=== PATIENT | female | born 1955 | race Two or more races ===

== ENCOUNTER 2020-10-02 10:46 | Outpatient (REF) | payer MEDICARE, MEDICAID, SELFPAY ==
[2020-10-02 13:08] LABS: Creatinine Urine 119.95 mg/dL; Microalbum/Creatinine Ratio Ur 8.3 ug/mg cr
[2020-10-02 13:15] LABS: Alanine Aminotransferase 17 U/L (0-31); Albumin Level 4.5 g/dL (3.5-5.0); Alkaline Phosphatase 116 U/L (39-117); Anion Gap 14 (12-20); Aspartate Amino Transferase 19 U/L (5-31); Bilirubin Direct 0.3 mg/dL (0.0-0.5); Bilirubin Total 0.8 mg/dL (0.0-1.0); Blood Urea Nitrogen 13 mg/dL (9-16); Calcium 9.1 mg/dL (8.4-10.2); Carbon Dioxide 27 mmol/L (22-29); Chloride 104 mmol/L (96-108); Cholesterol 198 mg/dL; Estimated Glomerular Filt Rate > 60; Glucose Fasting 133 mg/dL (60-99); HDL Cholesterol 59 mg/dL; LDL Cholesterol Calculated 127 mg/dl; Potassium 4.5 mmol/l (3.3-5.1); Sodium 140 mmol/L (135-145); Total Protein 7.5 g/dL (6.5-8.0); Triglycerides 63 mg/dL
[2020-10-02 13:25] LABS: Vitamin D 25-OH Total 19.2 ng/mL (>30)
[2020-10-02 13:42] LABS: Estimated Average Glucose 140 mg/dL; Hemoglobin A1c % 6.5 %
== END 2020-10-02 10:47 | disposition home or self-care (01) ==
LOC: HO.LAB 10:46
PROVIDERS: Visit Provider Student in an Organized Health Care Education/Training Program
DX: E11.9 Type 2 diabetes mellitus without complications (principal); I10 Essential (primary) hypertension
CPT/HCPCS: 80048; 80061; 80076; 82043; 82306; 83036

== ENCOUNTER → 2020-11-18 10:37 | Outpatient (BNVA) | payer MEDICARE, MEDICAID, SELFPAY | PROVIDERS: PCP Student in an Organized Health Care Education/Training Program; Visit Provider Internal Medicine | DX: R00.2 Palpitations (principal); I49.1 Atrial premature depolarization; I49.3 Ventricular premature depolarization; G47.33 Obstructive sleep apnea (adult) (pediatric); Z79.899 Other long term (current) drug therapy | CPT/HCPCS: 93005; 99212 ==

== ENCOUNTER → 2020-12-01 08:52 | Outpatient (REF) | payer MEDICARE, MEDICAID, SELFPAY | LOC: HO.SL 08:52 | PROVIDERS: Visit Provider Internal Medicine | DX: G47.33 Obstructive sleep apnea (adult) (pediatric) (principal) | CPT/HCPCS: 95806 ==

== ENCOUNTER → 2020-12-21 12:56 | Outpatient (REF) | payer MEDICARE, MEDICAID, SELFPAY ==
--- NOTE | 2020-12-21 13:01 | HM_ITS ---
TEST PERFORMED: Cardiac event monitoring. REQUESTING PHYSICIAN: Vamshi Mcmanus MD. INDICATION: Palpitations. FINDINGS: In the 30-day event monitoring period between 12/21/2020 to 01/20/2021, the underlying rhythm was sinus. The rates ranged from 57 to 102 beats per minute. There were evidence of premature atrial contractions including some blocked PACs. Occasional premature ventricular contractions. Otherwise, no sustained betina or tachyarrhythmia noted. No evidence of any atrial fibrillation. Palpitations reported by patient correlate with PACs and PVCs. In one instance of passing out, underlying rhythm was sinus with PVC. CONCLUSION: The above study shows sinus rhythm, PACs, PVCs, but no other arrhythmias. Vamshi Mcmanus MD HS/MODL / [id number]
== END ==
LOC: HO.CARD 12:56
PROVIDERS: Visit Provider Internal Medicine
DX: R00.2 Palpitations (principal)
CPT/HCPCS: 93270

== ENCOUNTER 2020-12-23 12:40 | Outpatient (REF) | payer MEDICARE, MEDICAID, SELFPAY | END 2020-12-23 12:41 | disposition home or self-care (01) | LOC: HO.LAB 12:40 | PROVIDERS: PCP Student in an Organized Health Care Education/Training Program; Visit Provider Internal Medicine | DX: Z20.822 Contact with and (suspected) exposure to COVID-19 (principal) | CPT/HCPCS: 36415; C9803; U0003 ==

== ENCOUNTER → 2021-01-21 09:54 | Outpatient (BNVA) | payer MEDICARE, MEDICAID, SELFPAY | PROVIDERS: PCP Student in an Organized Health Care Education/Training Program; Visit Provider Internal Medicine | DX: R00.2 Palpitations (principal); I49.1 Atrial premature depolarization; I49.3 Ventricular premature depolarization; G47.33 Obstructive sleep apnea (adult) (pediatric) | CPT/HCPCS: 93005; 99212 ==

== ENCOUNTER → 2021-01-28 14:22 | Outpatient (BNVA) | payer MEDICARE, MEDICAID, SELFPAY | PROVIDERS: PCP Student in an Organized Health Care Education/Training Program; Visit Provider Surgery Vascular Surgery | DX: I83.11 Varicose veins of right lower extremity with inflammation (principal) | CPT/HCPCS: 99212 ==

== ENCOUNTER → 2021-02-02 11:23 | Outpatient (BNVA) | payer MEDICARE, MEDICAID, SELFPAY | PROVIDERS: PCP Student in an Organized Health Care Education/Training Program; Visit Provider Psychiatry & Neurology Neurology | DX: Z13.89 Encounter for screening for other disorder (principal) | CPT/HCPCS: Q3014 ==

== ENCOUNTER 2021-02-10 12:44 | Outpatient (REF) | payer MEDICARE, MEDICAID, SELFPAY ==
--- NOTE | ~2021-02-10 | US_ITS ---
EXAMINATION: US VENOUS REFLUX/INSUFFICIENCY CLINICAL INFORMATION: Varicose veins right lower extremity with inflammation. COMPARISON: Ultrasound lower extremities 01/19/2017 TECHNIQUE: Bilateral lower extremity venous insufficiency ultrasound was performed with velocity measurements. Color flow Doppler imaging was performed. FINDINGS: Respiratory variation, normal compression and augmented flow are noted in the bilateral common femoral, mid femoral, and popliteal veins. There is no evidence of deep venous reflux or deep venous thrombosis., RIGHT SIDE: GREATER SAPHENOUS VEIN: The right saphenofemoral junction measures 0.6cm. The reflux time is 0 ms. Proximal thigh measures 0.8cm. Reflux time is 0ms. Mid thigh measures 0.2cm. Reflux time is 0ms. The vessel is not visualized above or at the level of the knee. Below the knee measures 0.2cm. Reflux time is 0ms. Mid calf measures 0.3cm. Reflux time is 1600ms. At the level of the ankle it measures0.2cm. Reflux time is 2468ms. SMALL SAPHENOUS VEIN: The upper right small saphenous vein measures 0.2 cm. Reflux time is 0ms. The lower small saphenous vein measures 0.2cm. Reflux time is 0ms. At the proximal calf there is a small varicosity which measures 2 mm in diameter and does not demonstrate significant reflux. At the proximal thigh there is a varicosity which measures 9 mm in diameter and does not demonstrate significant reflux. LEFT SIDE: GREATER SAPHENOUS VEIN: The left saphenofemoral junction measures 0.5cm. The reflux time is 0 ms. Proximal thigh measures 0.5cm. Reflux time is 0ms. Mid thigh measures 0.3cm. Reflux time is 0ms. Above-knee measures 0.2cm. Reflux time is 0ms. At the knee measures 0.2cm. Reflux time is 0ms. Below the knee measures 0.2cm. Reflux time is 0ms. Mid calf measures 0.2cm. Reflux time is 0ms. At the level of the ankle it measures0.2cm. Reflux time is 0ms. SMALL SAPHENOUS VEIN: The upper left small saphenous vein measures 0.3 cm. Reflux time is 0ms. The lower small saphenous vein measures 0.3cm. Reflux time is 0ms. There is a lateral accessory saphenous vein which measures 3 mm in diameter and does not demonstrate significant reflux. US/US venous duplex LE BI IMPRESSION: No evidence of deep venous thrombosis or deep venous reflux. On the right there is a proximal thigh varicosity which measures 9 mm in diameter, though does not demonstrate significant reflux. Within the right great saphenous vein there is reflux at the level of the midcalf and ankle measuring up to 2468 ms. No evidence of left lower extremity venous reflux or varicosities
== END 2021-02-10 12:45 | disposition home or self-care (01) ==
LOC: HO.US 12:44
PROVIDERS: Visit Provider Surgery Vascular Surgery
DX: I83.11 Varicose veins of right lower extremity with inflammation (principal); I83.893 Varicose veins of bilateral lower extremities with other complications
CPT/HCPCS: 93970

== ENCOUNTER → 2021-02-25 08:41 | Outpatient (BNVA) | payer MEDICARE, MEDICAID, SELFPAY | PROVIDERS: PCP Student in an Organized Health Care Education/Training Program; Visit Provider Surgery Vascular Surgery | DX: Z13.89 Encounter for screening for other disorder (principal) | CPT/HCPCS: 99212 ==

== ENCOUNTER → 2021-03-05 09:29 | Outpatient (BNVA) | payer MEDICARE, MEDICAID, SELFPAY | PROVIDERS: PCP Student in an Organized Health Care Education/Training Program; Visit Provider Surgery Vascular Surgery | DX: I83.11 Varicose veins of right lower extremity with inflammation (principal) | CPT/HCPCS: 37766 ==

== ENCOUNTER → 2021-03-18 09:53 | Outpatient (BNVA) | payer MEDICARE, MEDICAID, SELFPAY | PROVIDERS: PCP Student in an Organized Health Care Education/Training Program; Visit Provider Surgery Vascular Surgery | DX: R22.41 Localized swelling, mass and lump, right lower limb (principal); I80.231 Phlebitis and thrombophlebitis of right tibial vein; I49.1 Atrial premature depolarization; Z88.0 Allergy status to penicillin; Z88.8 Allergy status to other drugs, medicaments and biological substances | CPT/HCPCS: 99212 ==

== ENCOUNTER → 2021-04-15 08:45 | Outpatient (BNVA) | payer MEDICARE, MEDICAID, SELFPAY | PROVIDERS: PCP Student in an Organized Health Care Education/Training Program; Referring Provider Student in an Organized Health Care Education/Training Program; Visit Provider Internal Medicine | DX: R00.2 Palpitations (principal); I49.1 Atrial premature depolarization; I49.3 Ventricular premature depolarization; G47.33 Obstructive sleep apnea (adult) (pediatric) | CPT/HCPCS: 99212 ==

== ENCOUNTER 2021-06-04 08:20 | Outpatient (REF) | payer MEDICARE, MEDICAID, SELFPAY ==
--- NOTE | ~2021-06-04 | MM_ITS ---
EXAMINATION: MM SCREENING DIGITAL BREAST TOMOSYNTHESIS, BILATERAL CLINICAL INFORMATION: Screening. Asymptomatic. The lifetime risk of breast cancer based on the Tyrer-Cuzick Model is 4%. COMPARISON: Mammography: 05/29/2020, 03/21/2019, 03/15/2018 TECHNIQUE: Digital breast tomosynthesis is performed in both the craniocaudal and mediolateral oblique views along with computer-aided detection (CAD). Synthesized 2D images are generated from the tomosynthesis. FINDINGS: There are scattered areas of fibroglandular density (ACR BI-RADS breast composition Category b). There are no significant masses, abnormal calcifications, or other abnormalities. Parenchymal pattern is similar to prior studies. Small intramammary node again noted mid 6:00 left breast similar to prior exams. The axilla and skin contours are unremarkable. MM/MM tomosynthesis screening BI IMPRESSION: No mammographic evidence of malignancy. ASSESSMENT: BI-RADS 2: Benign RECOMMENDATION: Routine annual mammography screening. This patient's information was entered into a reminder system with a target due date for their next mammogram.
== END 2021-06-04 08:21 | disposition home or self-care (01) ==
LOC: HO.MAMMO 08:20
PROVIDERS: PCP Nurse Practitioner Family; Visit Provider Nurse Practitioner Family
DX: Z12.31 Encounter for screening mammogram for malignant neoplasm of breast (principal)
CPT/HCPCS: 77063; 77067

== ENCOUNTER → 2021-09-14 12:33 | Outpatient (BNVA) | payer MEDICARE, MEDICAID, SELFPAY | PROVIDERS: PCP Nurse Practitioner Family; Referring Provider Nurse Practitioner Family; Visit Provider Nurse Practitioner Family | DX: I25.10 Atherosclerotic heart disease of native coronary artery without angina pectoris (principal); I49.3 Ventricular premature depolarization; I49.1 Atrial premature depolarization; R00.2 Palpitations | CPT/HCPCS: 93005; 99212 ==

== ENCOUNTER → 2021-09-20 11:06 | Outpatient (REF) | payer MEDICARE, MEDICAID, SELFPAY ==
--- NOTE | 2021-09-20 11:09 | HM_ITS ---
Total monitoring time 3 days. Underlying rhythm is sinus. Minimum heart rate 38/Min. Maximum 111/minute. Average 59/Min. No atrial fibrillation or flutter. No other blocks or pauses. 134 supraventricular episodes, longest 23 beats. Overall PAC burden 1.76%. Rare PVCs, 2 morphologies, 2 couplets, 0.22% burden. Patient symptoms including palpitations, skipping, shortness of breath correlate with ectopy above. MTDD
== END ==
LOC: HO.CARD 11:06
PROVIDERS: Visit Provider Nurse Practitioner Family
DX: R00.2 Palpitations (principal)
CPT/HCPCS: 93242

== ENCOUNTER → 2021-11-03 11:50 | Outpatient (BNVA) | payer MEDICARE, MEDICAID, SELFPAY | PROVIDERS: Visit Provider Nurse Practitioner Family | DX: K21.9 Gastro-esophageal reflux disease without esophagitis (principal); K58.1 Irritable bowel syndrome with constipation; K59.04 Chronic idiopathic constipation | CPT/HCPCS: 99212 ==

== ENCOUNTER 2021-11-05 14:39 | Outpatient (REF) | payer MEDICARE, MEDICAID, SELFPAY ==
[2021-11-05 15:36] LABS: Alanine Aminotransferase 16 U/L (0-31); Albumin Level 4.1 g/dL (3.5-5.0); Alkaline Phosphatase 95 U/L (39-117); Anion Gap 10 (12-20); Aspartate Amino Transferase 19 U/L (5-31); Bilirubin Total 1.3 mg/dL (0.0-1.0); Blood Urea Nitrogen 12 mg/dL (9-16); Calcium 9.8 mg/dL (8.4-10.2); Carbon Dioxide 28 mmol/L (22-29); Chloride 105 mmol/L (96-108); Estimated Glomerular Filt Rate > 60; Glucose Random 132 mg/dL (60-115); Lipase 42 U/L (8-78); Potassium 3.9 mmol/L (3.3-5.1); Sodium 139 mmol/L (135-145); Total Protein 7.1 g/dL (6.5-8.0)
[2021-11-05 16:10] LABS: Folate 14.3 ng/mL (> or = 4.0); Vitamin B12 308 pg/mL (200-900)
[2021-11-09 13:21] LABS: Vitamin D 25-OH, D2 21 ng/mL; Vitamin D 25-OH, D3 7 ng/mL; Vitamin D 25-OH, Total 28 ng/mL (30-100)
[2021-11-11 09:11] LABS: Transglutaminase Ab IgG 1.2 U/mL; Transglutaminase IgA <1.0 U/mL
== END 2021-11-05 14:40 | disposition home or self-care (01) ==
LOC: HO.LAB 14:39
PROVIDERS: Visit Provider Nurse Practitioner Family
DX: Z12.11 Encounter for screening for malignant neoplasm of colon (principal); R10.11 Right upper quadrant pain; E55.9 Vitamin D deficiency, unspecified; R19.7 Diarrhea, unspecified; R14.0 Abdominal distension (gaseous); K21.9 Gastro-esophageal reflux disease without esophagitis
CPT/HCPCS: 36415; 80053; 82306; 82607; 82746; 83516; 83690; 84443; 87338

== ENCOUNTER 2021-12-03 06:09 | Day surgery (SDC) | payer MEDICARE, MEDICAID, SELFPAY ==
[2021-11-23 15:51] VITALS: BMI 35.9
--- NOTE | 2021-12-02 15:25 | P.CONAN_ITS ---
Documented by User: Arely Ordonez NP 12/02/21 15:28 HPI - Anesthesia Eval Consult details Narrative: 66yo F for Upper Endoscopy PMFSH Active Problems Active Problems: All Active Problems (Updated 11/23/21 @ 15:50 by Rosemarie Benjamin RN) INDERJIT (obstructive sleep apnea) (Acute) PVC (premature ventricular contraction) (Acute) Heart palpitations (Acute) Varicose veins of right lower extremity with inflammation (Acute) Snoring (Acute) Witnessed apneic spells (Acute) Nonobstructive atherosclerosis of coronary artery (Acute) PAC (premature atrial contraction) (Acute) Past Medical History Medical History Arthritis Depression Diabetes GERD (gastroesophageal reflux disease) Hyperlipidemia Hypertension Nonobstructive atherosclerosis of coronary artery INDERJIT (obstructive sleep apnea) PAC (premature atrial contraction) Family History Family History Father No problems noted. Mother Cervical cancer Surgical History Surgical History History of exploratory laparotomy History of hysterectomy History of tubal ligation Status post phlebectomy Social History Social History Patient Tobacco Use Status: Never used Tobacco Use of substances other than those prescribed or required for medical reasons: No Are you DNR?: No Advance Directives: No Advance Directives Information Provided: No Advance Directives on File: No Recently lost weight without trying: No Nutrition Risks: No Nutritional Risk Patient : No Meds Allergies Allergy/AdvReac Type Severity Reaction Status Date / Time enalapril [ENALAPRIL] Allergy Unknown COUGH Verified 12/03/21 06:37 Penicillins [PENICILLINS] Allergy Unknown RASH Verified 12/03/21 06:37 pravastatin [PRAVASTATIN] Allergy Unknown RASH Verified 12/03/21 06:37 glipizide AdvReac Unknown hypoglycemi Verified 12/03/21 06:37 a metformin AdvReac Unknown abdominal Verified 12/03/21 06:37 pain simvastatin AdvReac Unknown stomach Verified 12/03/21 06:37 upset Home Medications Medication Instructions Recorded Confirmed Last Taken Type atorvastatin 80 mg tablet 80 mg PO DAILY tab 11/18/20 11/23/21 Unknown History zolpidem 10 mg tablet 10 mg PO BEDTIME tab 11/18/20 11/23/21 Unknown History bupropion HCl 150 mg 24 hr tablet, 150 mg PO DAILY tab 01/21/21 11/23/21 Unknown History extended release duloxetine 30 mg capsule,delayed 30 mg PO DAILY cap 01/21/21 11/23/21 Unknown History release ipratropium bromide 21 mcg (0.03 2 spray INTRANASAL BID PRN ml 01/21/21 11/23/21 Unknown History %) nasal spray bupropion HCl 300 mg 24 hr tablet, 300 mg PO DAILY tab 09/14/21 11/23/21 Unknown History extended release buspirone 15 mg tablet 15 mg PO DAILY 09/14/21 11/23/21 Unknown History lorazepam 0.5 mg tablet 0.5 mg PO DAILY PRN 09/14/21 11/23/21 Unknown History quetiapine 50 mg tablet 50 mg PO DAILY tab 09/14/21 11/23/21 Unknown History sitagliptin 100 mg tablet (Januvia) 100 mg PO DAILY 09/14/21 11/23/21 Unknown History Exam Exam Date and Time: December 02, 2021 1525 Height,Weight and Vital Signs: Height 5 ft 4 in Weight 94.801 kg Pertinent Lab Results Pertinent Lab Results: Laboratory Tests 11/05/21 14:58 Sodium 139 Potassium 3.9 Chloride 105 Carbon Dioxide 28 BUN 12 Creatinine 0.81 Narrative Narrative: 3 day holter 08/2021 Total monitoring time 3 days.? Underlying rhythm is sinus.? Minimum heart rate 38/Min.? Maximum 111/minute.? Average 59/Min.? No atrial fibrillation or flut ter.? No other blocks or pauses. 134 supraventricular episodes, longest 23 beats.? Overall PAC burden 1.76%.? Rare PVCs, 2 morphologies, 2 couplets, 0.22% burden.? Patient symptoms including palpitations, skipping, shortness of breath correlate with ectopy above. EKG 08/2021 normal sinus rhythm, low-voltage QRS, no acute ST or T-wave abnormalities, normal ID, QRS and QTC intervals, rate 61 CTA of coronary 01/03/19 evidence of minimal calcific plaque in the proximal to mid LAD and mild narrowing at the origin of a non dominant 1st diagonal branch, EF 69% Nuclear stress test done on 11/01/2018 showed basal lateral ischemia, EF 70%.? A CTA of the coronary arteries was done 12/2018 showing no significant stenosis. No report of anginal sounding symptoms.? Recommend continuation of aspirin and statin Assessment and Plan Assessment Anesthesia Assessment: Chart Reviewed Documented by User: Celso Tristan MD 12/03/21 07:09 [facility] Past Medical History Medical History Arthritis Depression Diabetes GERD (gastroesophageal reflux disease) Hyperlipidemia Hypertension Nonobstructive atherosclerosis of coronary artery INDERJIT (obstructive sleep apnea) PAC (premature atrial contraction) Family History Family History Father No problems noted. Mother Cervical cancer Family history of problems with anesthesia: No Surgical History Surgical History History of exploratory laparotomy History of hysterectomy History of tubal ligation Status post phlebectomy History of Problems with Anesthesia: No Social History Social History Patient Tobacco Use Status: Never used Tobacco Use of substances other than those prescribed or required for medical reasons: No Are you DNR?: No Advance Directives: No Advance Directives Information Provided: No Advance Directives on File: No Recently lost weight without trying: No Nutrition Risks: No Nutritional Risk Patient : No Meds Allergies Allergy/AdvReac Type Severity Reaction Status Date / Time enalapril [ENALAPRIL] Allergy Unknown COUGH Verified 12/03/21 06:37 Penicillins [PENICILLINS] Allergy Unknown RASH Verified 12/03/21 06:37 pravastatin [PRAVASTATIN] Allergy Unknown RASH Verified 12/03/21 06:37 glipizide AdvReac Unknown hypoglycemi Verified 12/03/21 06:37 a metformin AdvReac Unknown abdominal Verified 12/03/21 06:37 pain simvastatin AdvReac Unknown stomach Verified 12/03/21 06:37 upset Home Medications Medication Instructions Recorded Confirmed Last Taken Type atorvastatin 80 mg tablet 80 mg PO DAILY tab 11/18/20 11/23/21 Unknown History zolpidem 10 mg tablet 10 mg PO BEDTIME tab 11/18/20 11/23/21 Unknown History bupropion HCl 150 mg 24 hr tablet, 150 mg PO DAILY tab 01/21/21 11/23/21 Unknown History extended release duloxetine 30 mg capsule,delayed 30 mg PO DAILY cap 01/21/21 11/23/21 Unknown History release ipratropium bromide 21 mcg (0.03 2 spray INTRANASAL BID PRN ml 01/21/21 11/23/21 Unknown History %) nasal spray bupropion HCl 300 mg 24 hr tablet, 300 mg PO DAILY tab 09/14/21 11/23/21 Unknown History extended release buspirone 15 mg tablet 15 mg PO DAILY 09/14/21 11/23/21 Unknown History lorazepam 0.5 mg tablet 0.5 mg PO DAILY PRN 09/14/21 11/23/21 Unknown History quetiapine 50 mg tablet 50 mg PO DAILY tab 09/14/21 11/23/21 Unknown History sitagliptin 100 mg tablet (Januvia) 100 mg PO DAILY 09/14/21 11/23/21 Unknown H istory Exam Airway Mallampati Class: III Neck ROM: Full Loose/Missing/Broken Teeth: No Heart: [id number] Lungs: cta b/l Assessment and Plan Assessment Anesthesia Assessment: Anesthesia Plan Discussed Final Anesthetic Review Family History of Problems with Anesthesia: No History of Problems with Anesthesia: No NPO: Yes ASA Class: III Final Preanesthetic Review: No Changes in Pt Med Stat, Meds/Allgs Chart Reviewed, Consent Obtained/Reviewed and Anes Risks/Benef Reviewed Patient Risk: Intermediate Procedure Risk: Low Assessment/Block/Sedation in SS: Assess/Block/Sedation-SS Anesthetic Plan Anesthetic Plan: MAC: and Agree w/ Assess. and Plan Disposition: Standard PACU
[2021-12-03 06:46] VITALS: BP 110/66; PULSE 72; RESP 16; TEMP -16.6; TEMP 2; O2SAT 97
[2021-12-03] MEDS: Lactated Ringers 1,000 ML 100 ML IVCONT (06:58)
[2021-12-03 07:11] LABS: Glucose, Whole Blood 126 mg/dL (60-115)
--- NOTE | 2021-12-03 07:39 | MHC.SHP ---
Pre-Procedural Eval Section A Date of Service: 12/03/21 The patient is an INPATIENT: No Changes since office visit: Yes Patient answered all questions; No Cold of Flu in the past 2 weeks, No New Medical Problems and No Changes in Medication The History & Physical has been completed within 30 days and I have reviewed it.: Yes Section B Chief Complaint: GERD Allergies: Allergies Allergy/AdvReac Type Severity Reaction Status Date / Time enalapril [ENALAPRIL] Allergy Unknown COUGH Verified 12/03/21 06:37 Penicillins [PENICILLINS] Allergy Unknown RASH Verified 12/03/21 06:37 pravastatin [PRAVASTATIN] Allergy Unknown RASH Verified 12/03/21 06:37 glipizide AdvReac Unknown hypoglycemi Verified 12/03/21 06:37 a metformin AdvReac Unknown abdominal Verified 12/03/21 06:37 pain simvastatin AdvReac Unknown stomach Verified 12/03/21 06:37 upset Plan I have reviewed the history and physical and performed a pertinent physical examination on my patient. No changes have occurred unless specified.
--- NOTE | 2021-12-03 07:40 | P.BOP_ITS ---
Brief Operative Note Date of Service: 12/03/21 Pre-op diagnosis: GERD, upper abdominal pain and bloating Post-op diagnosis: other (GERD, Gastritis) Procedure: FLEXIBLE TRANSORAL UPPER GASTROINTESTINAL ENDOSCOPY WITH BIOPSIES Consent: Indications for the procedure and potential complications of bleeding, perforation, reaction to medications and missed diagnosis were discussed with the patient and informed consent was obtained. Instrument: Olympus GIF H 190 mid size upper endoscope Monitoring: Vital signs and clinical assessment, continuous EKG monitoring, Pulse oximetry, Carbon Dioxide monitoring and blood pressure monitoring were done throughout the procedure. Procedure: The patient was placed in the left lateral decubitis position and pre-procedure medications were administered and a bite block was placed. The endoscope was inserted into the mouth and advanced under direct vision to the third part of duodenum. A careful inspection was made as the upper endoscope was withdrawn including a retroflexed examination of the proximal stomach; Findings and interventions are described below. Findings: Larynx: Normal Esophagus: GE junction at 38 cms. No esophagitis or Irizarry's. Stomach: Mild gastric erythema. Biopsies were obtained. Grade 2 flap valve on retroflexed examination of the cardia. Duodenum: Normal bulb and descending duodenum, biopsies obtained from 3rd part of duodenum to check for celiac sprue. Intervention: Biopsies as noted above Impression and Post Procedure Diagnosis: Endoscopy Findings: STOMACH: Mild gastric erythema. Biopsies were obtained. DUODENUM: Normal - biopsied to check for celiac sprue Plan: Await pathology results Patient has an appointment on 12/17/21 in the GI Clinic with Lianne Mccray FNP-BC . Above findings were reviewed with the patient and GERD and Gastritis handouts were given in the discharge area Surgeon: Carlos A Rose MD Anesthesia: MAC (Marli Nielsen, CRISTINE) Was an Cold Mill Operator used for this Procedure?: Yes Cold Mill Operator: Claritza Pat Estimated blood loss (mL): 0 Pathology: other (A- Small bowel BX r/o celiac disease B- gastric antrum BX r/o H.Pylori) Condition: stable Disposition: PACU
--- NOTE | 2021-12-03 08:19 | W.PM.OPN ---
Operative Note Operative Note Date of Service: 12/03/21 Narrative: Pre-op diagnosis:?GERD, upper abdominal pain and bloating Post-op diagnosis:?other (GERD, Gastritis) Procedure:? FLEXIBLE TRANSORAL UPPER GASTROINTESTINAL ENDOSCOPY WITH BIOPSIES Consent:?Indications for the procedure and potential complications of bleeding, perforation, reaction to medications and missed diagnosis were discussed with the patient and informed consent was obtained. Instrument:?Olympus GIF H 190 mid size upper endoscope Monitoring: Vital signs and clinical assessment, continuous EKG monitoring, Pulse oximetry, Carbon Dioxide monitoring and blood pressure monitoring were done throughout the procedure. Procedure:?The patient was placed in the left lateral decubitis position and pre-procedure medications were administered and a bite block was placed. The endoscope was inserted into the mouth and advanced under direct vision to the third part of duodenum. A careful inspection was made as the upper endoscope was withdrawn including a retroflexed examination of the proximal stomach; Findings and interventions are described below. Findings: Larynx:? Normal Esophagus: GE junction at 38 cms. No esophagitis or Irizarry's. Stomach: Mild gastric erythema. Biopsies were obtained. Grade 2 flap valve on retroflexed examination of the cardia. Duodenum: Normal bulb and descending duodenum, biopsies obtained from 3rd part of duodenum to check for celiac sprue. Intervention: Biopsies as noted above Impression and Post Procedure Diagnosis: Endoscopy Findings: STOMACH: Mild gastric erythema. Biopsies were obtained. DUODENUM: Normal - biopsied to check for celiac sprue Plan: Await pathology results Patient has an appointment on 12/17/21 in the GI Clinic with ? Lianne Mccray FNP-BC . Above findings were reviewed with the patient and GERD and Gastritis handouts were given in the discharge area Surgeon:?Carlos A Roes MD Anesthesia:?MAC (Marli Nielsen, CRISTINE) Was an Straw Hat Brim Cutter Operator used for this Procedure?:?Yes Straw Hat Brim Cutter Operator:?Claritza Pat Estimated blood loss (mL):?0 Pathology:?other (A- Small bowel BX r/o celiac disease? B- gastric antrum BX r/o H.Pylori) Condition:?stable Disposition:?PACU
[2021-12-03 08:23] VITALS: BP 113/51; PULSE 65; RESP 20; TEMP 36.4; O2SAT 96
[2021-12-03 08:38] VITALS: BP 116/67; PULSE 59; RESP 20; TEMP 36.2; O2SAT 96
[2021-12-03 08:51] VITALS: BP 125/61; RESP 18; O2SAT 96
== END 2021-12-03 09:24 | disposition home or self-care (01) ==
PROVIDERS: Visit Provider Internal Medicine Gastroenterology
PROC: 0DJ08ZZ Inspection of Upper Intestinal Tract, Via Natural or Artificial Opening Endoscopic (ICD-10-PCS; CPT 43235; principal; 2021-12-03 07:30)
DX: K21.9 Gastro-esophageal reflux disease without esophagitis (principal); K29.50 Unspecified chronic gastritis without bleeding; K58.1 Irritable bowel syndrome with constipation; G47.33 Obstructive sleep apnea (adult) (pediatric); I49.1 Atrial premature depolarization; E55.9 Vitamin D deficiency, unspecified; E11.9 Type 2 diabetes mellitus without complications; Z79.84 Long term (current) use of oral hypoglycemic drugs; Z79.899 Other long term (current) drug therapy; Z88.0 Allergy status to penicillin; Z88.8 Allergy status to other drugs, medicaments and biological substances
CPT/HCPCS: 43239; 82947; 88305; 88342

== ENCOUNTER → 2021-12-20 09:11 | Outpatient (BNVA) | payer MEDICARE, MEDICAID, SELFPAY | PROVIDERS: Visit Provider Nurse Practitioner Family | DX: K21.9 Gastro-esophageal reflux disease without esophagitis (principal); K58.1 Irritable bowel syndrome with constipation; K59.04 Chronic idiopathic constipation; A04.8 Other specified bacterial intestinal infections | CPT/HCPCS: 99212 ==

== ENCOUNTER → 2022-03-21 08:14 | Outpatient (BNVA) | payer MEDICARE, MEDICAID, SELFPAY | PROVIDERS: Visit Provider Nurse Practitioner Family | DX: K21.9 Gastro-esophageal reflux disease without esophagitis (principal); K59.04 Chronic idiopathic constipation; K58.1 Irritable bowel syndrome with constipation; R20.8 Other disturbances of skin sensation | CPT/HCPCS: 99212 ==

== ENCOUNTER → 2022-03-31 08:44 | Outpatient (REF) | payer MEDICARE, MEDICAID, SELFPAY ==
--- NOTE | 2022-03-31 10:16 | ECG_ITS ---
Hook-up date: 2022-03-31 09:35:00 Duration: 28:37:00 Test Indications: PVC'S Medications: 91630 QRS complexes 682 Ventricular ectopics which represent <1 % of total QRS comp. 213 Supraventricular ectopics which represent <1 % of total QRS comp. * Paced QRS complexs which represent % of total QRS comp. VENTRICULAR ECTOPY 672 Isolated 48 Bigeminal Cycles 5 Couplets 0 Runs 0 Beats in Runs * Beats LONGEST at * BPM at :: -- * Beats FASTEST at * BPM at :: -- SUPRAVENTRICULAR ECTOPY 187 Isolated 1 Couplets 4 Runs 24 Beats in Runs 14 Beats LONGEST at 136 BPM at 21:53:36 2022-03-31 14 Beats FASTEST at 136 BPM at 21:53:36 2022-03-31 HEART RATES 47 MIN at 12:55:00 2022-03-31 61 AVG 117 MAX at 16:43:45 2022-03-31 LONGEST RR 1.8320 secs at 05:26:11 2022-04-01 S-T LEVELS Channel 1 - 128 mm at 09:35:00 2022-03-31 - 128 mm at 09:35:00 2022-03-31 Channel 2 - 128 mm at 09:35:00 2022-03-31 - 128 mm at 09:35:00 2022-03-31 Channel 3 - 128 mm at 02:85:41 -- - 128 mm at 02:85:41 Underlying rhythm is sinus; Average rate 61/min; range 47-117/min; About 49% of the time, rate <60/min; Rare supraventricular ectopy with very brief runs; some blocked PACs; Rare ventricular ectopy with minimal burden; few couplets, no runs; Patient did not return diary Referred By: Jesús Erazo Overread By: JESÚS ERAZO
== END ==
LOC: HO.CARD 08:44
PROVIDERS: Visit Provider Internal Medicine
DX: I49.3 Ventricular premature depolarization (principal)
CPT/HCPCS: 93226

== ENCOUNTER → 2022-04-13 07:12 | Outpatient (REF) | payer MEDICARE, MEDICAID, SELFPAY ==
--- NOTE | 2022-04-13 07:14 | CA_ITS ---
Transthoracic Echocardiogram Patient (Last, First, Middle): Sis Luo, Gender: Female Date of : 1955 Age: 67 Procedure Date: 04/13/2022 Procedure Type: Transthoracic Echocardiogram Location: OP Height: 162.56 cm Weight: 95.26 kg BSA: 2.00 m2 Heart Rate: bpm BP: 124 / 62 mmHg Cell Operator: SB Referring MD: Vamshi Mcmanus MD Symptoms: I49.3 - Ventricular premature depolarization Study Quality: Fair ECG Rhythm: Sinus Conclusions: - The left ventricular systolic function is low normal. The calculated ejection fraction is 53% by biplane method. - Mild aneurysmal appearance of interatrial septum. - There is mild tricuspid valve regurgitation. - Mild pulmonary hypertension is present. Findings Left Ventricle Normal left ventricular cavity size. There is normal left ventricular wall thickness. The left ventricular systolic function is low normal. The calculated ejection fraction is 53% by biplane method. There is no evidence of regional wall motion abnormalities. Diastolic function is normal for age. There is mild septal asymmetric hypertrophy. Right Ventricle Normal right ventricular cavity size and systolic function. Atria The left atrium is mildly dilated. Interatrial shunt cannot be excluded. The right atrium is normal in size. Mild aneurysmal appearance of interatrial septum. Aortic Valve There is a normal trileaflet aortic valve. There is no aortic valve stenosis. There is no aortic valve regurgitation. Mitral Valve The mitral valve appears normal. There is trace mitral valve regurgitation. There is no mitral valve stenosis. Pulmonic Valve The pulmonic valve was not well visualized. There is mild pulmonic valve regurgitation. Tricuspid Valve Normal tricuspid valve structure. There is mild tricuspid valve regurgitation. The right ventricular systolic pressure is 40 mmHg. Mild pulmonary hypertension is present. Great Vessels The asc aorta is normal in size. Venous The inferior vena cava is normal in size and collapses greater than 50% with inspiration. Pericardium/Pleural There is no evidence of pericardial effusion. Prior Study Comparison Changes noted compared to prior study dated: 11/01/2018. See comments on atrial septum. Measurements 2D Linear Measurements IVSd: 1.11 0.6-0.9/0.6-1.0 cm LVIDd: 5.49 3.9-5.3/4.2-5.9 cm LVIDd Index: 2.75 2.4-3.2/2.2-3.1 cm/m2 LVIDs: 3.98 2.0-3.6 cm LVPWd: 0.64 0.7-1.1 cm LA Diam: 4.90 2.7-3.8/3.0-4.0 cm LAIDs Index: 2.45 1.5-2.3 cm/m2 LV Mass: 222.27 67-162/88-224 g LV Mass Index: 111.13 43-95/49-115 g/m2 LVOT Diam: 2.20 3.0+(-)1.3 cm 2D Systolic Function EF 4C: 54.10 >55% EF 2C: 51.90 >55% EF BiP: 52.80 >55% Mitral Valve MV Pk E: 0.94 MV PK A: 0.84 MV Decel Time: 137.00 E/A: 1.10 E'Lateral: 10.90 E'Medial: 8.59 E/E' Med: 11.00 E/E' Lat: 8.70 PHT: 40.00 MVA PHT: 5.50 Decel [place]: 6.86 Aortic Valve AoV Pk Brant: 1.06 AoV Mn Brant: 0.76 AoV VTI: 0.24 AoV Pk Grad: 4.00 Aov Mn Grad: 3.00 JOSE MARIA Cont.VTI: 2.82 LVOT LVOT Pk Brant: 0.72 LVOT Mn Brant: 0.50 LVOT VTI: 0.18 LVOT Pk Grad: 2.00 LVOT Mn Grad: 1.00 LVOT Diam: 2.20 LVOT Area: 3.80 Diastolic Function MV Pk E: 0.94 MV Pk A: 0.84 E/A: 1.10 E'Medial: 8.59 E/E' Med: 11.00 E' Laterial: 10.90 E/E' Lat: 8.70 Right Ventricle TAPSE (mm): 19.30 TVS' Brant: 11.50 Tricuspid Valve TR Pk Brant: 3.03 TR Pk Grad: 37.00 RA Press: 3.00 RVSP: 40.00 Great Vessels Aorta Sinus of Valsalva: 2.31 2.0-3.[address] [place]: 2.25 1.7-3.4 cm Ao Asc: 2.60 2.1-3.4 cm Pulmonary Veins Pulm Vein S/D 1.60 Pulmonary Valve PV Pk Brant: 0.84 Peak PV Grad: 3.00 Updated in Other Vendor System with Status of Final Vamshi Mcmanus MD electronically signed on 04/15/2022 12:57:38 PM with status of Final
== END ==
LOC: HO.CARD 07:12
PROVIDERS: Visit Provider Internal Medicine
DX: I49.1 Atrial premature depolarization (principal); I49.3 Ventricular premature depolarization
CPT/HCPCS: 93306

== ENCOUNTER → 2022-04-21 08:40 | Outpatient (BNVA) | payer MEDICARE, MEDICAID, SELFPAY | PROVIDERS: Visit Provider Internal Medicine | DX: I49.1 Atrial premature depolarization (principal); I49.3 Ventricular premature depolarization; I25.10 Atherosclerotic heart disease of native coronary artery without angina pectoris; G47.33 Obstructive sleep apnea (adult) (pediatric) | CPT/HCPCS: 93005; 99212 ==

== ENCOUNTER → 2022-05-02 08:19 | Outpatient (BNVA) | payer MEDICARE, MEDICAID, SELFPAY | PROVIDERS: Visit Provider Nurse Practitioner Family | DX: K59.04 Chronic idiopathic constipation (principal); K21.9 Gastro-esophageal reflux disease without esophagitis; K58.1 Irritable bowel syndrome with constipation | CPT/HCPCS: 99212 ==

== ENCOUNTER 2022-06-06 10:39 | Outpatient (REF) | payer MEDICARE, MEDICAID, SELFPAY ==
--- NOTE | ~2022-06-06 | MM_ITS ---
EXAMINATION: MM SCREENING DIGITAL BREAST TOMOSYNTHESIS, BILATERAL CLINICAL INFORMATION: Screening. Asymptomatic. The lifetime risk of breast cancer based on the Tyrer-Cuzick Model is 4%. COMPARISON: Mammography: 06/04/2021, 05/29/2020, 03/21/2019 TECHNIQUE: Digital breast tomosynthesis is performed in both the craniocaudal and mediolateral oblique views along with computer-aided detection (CAD). Synthesized 2D images are generated from the tomosynthesis. FINDINGS: There are scattered areas of fibroglandular density (ACR BI-RADS breast composition Category b). There are no significant masses, abnormal calcifications, or other abnormalities. The axilla and skin contours are unremarkable. The parenchymal pattern is similar to prior exams. No significant changes. MM/MM tomosynthesis screening BI IMPRESSION: No mammographic evidence of malignancy. ASSESSMENT: BI-RADS 1: Negative RECOMMENDATION: Routine annual mammography screening. This patient's information was entered into a reminder system with a target due date for their next mammogram.
== END 2022-06-06 10:40 | disposition home or self-care (01) ==
LOC: HO.MAMMO 10:39
PROVIDERS: Visit Provider Nurse Practitioner Family
DX: Z12.31 Encounter for screening mammogram for malignant neoplasm of breast (principal)
CPT/HCPCS: 77063; 77067

== ENCOUNTER → 2022-11-01 07:54 | Outpatient (BNVA) | payer MEDICARE, MEDICAID, SELFPAY | PROVIDERS: Visit Provider Nurse Practitioner Family | DX: K21.9 Gastro-esophageal reflux disease without esophagitis (principal); K59.04 Chronic idiopathic constipation; K58.1 Irritable bowel syndrome with constipation; R14.0 Abdominal distension (gaseous) | CPT/HCPCS: 99212 ==

== ENCOUNTER → 2022-12-13 10:00 | Outpatient (BNVA) | payer MEDICARE, MEDICAID, SELFPAY | PROVIDERS: PCP Nurse Practitioner Family; Visit Provider Nurse Practitioner Family | DX: K59.01 Slow transit constipation (principal); K21.9 Gastro-esophageal reflux disease without esophagitis; K58.1 Irritable bowel syndrome with constipation; R10.32 Left lower quadrant pain | CPT/HCPCS: 99212 ==

== ENCOUNTER 2023-01-09 07:15 | Outpatient (REF) | payer MEDICARE, MEDICAID, SELFPAY ==
--- NOTE | ~2023-01-09 | CT_ITS ---
EXAMINATION: CT ABDOMEN AND PELVIS WITH CONTRAST CLINICAL INFORMATION: Abdominal pain COMPARISON: Previous CT of the abdomen and pelvis November 2017 TECHNIQUE: Multidetector volumetric images were obtained from the superior aspect of the liver through the pubic symphysis following administration 85 mL of Omnipaque 350 intravenous contrast. Sagittal and coronal reformatted images were obtained on the technologist's workstation. Oral contrast: Yes This CT examination was performed using dose optimization techniques as appropriate, variously including the following: *Automated exposure control *Adjustment of mA and/or kV according to patient size (this includes techniques or standardized protocols for targeted exams where dose is matched to indication/reason for exam; i.e. extremities or head) *Use of iterative reconstruction technique DLP: 519 mGy-cm FINDINGS: LUNG BASES: 2 small peripheral or subpleural left lower lobe nodules measuring 2 to 3 mm axial image 13 series 7. Similar to prior exam. LIVER, GALLBLADDER, AND BILIARY TREE: The liver is normal in size, shape, and attenuation. No focal hepatic lesion or biliary ductal dilatation is present. The gallbladder is unremarkable with no evidence of radiopaque gallstones, gallbladder wall thickening, or obvious pericholecystic inflammatory changes. PANCREAS: Unremarkable. SPLEEN: Unremarkable. ADRENAL GLANDS: Unremarkable. KIDNEYS AND URETERS: The kidneys are normal in size, shape, and attenuation. No hydronephrosis, hydroureter, or calculi seen. No perinephric stranding. BLADDER: Unremarkable. GASTROINTESTINAL TRACT: Mild diverticulosis of the colon. No evidence of diverticulitis. Postsurgical change to the sigmoid colon. The small and large bowel are unremarkable. The appendix is unremarkable. ABDOMINAL WALL: Multiple small ventral hernias containing fat and small and large bowel. No evidence of obstruction. Small umbilical hernia containing fat. LYMPH NODES: 1.3 cm low-attenuation left retroperitoneal lesion adjacent to the left side of the aorta and left renal vessels. This is similar to previous exam November 2017 and may represent a small cyst or cystic degeneration of a lymph node. No other adenopathy. No ascites. VASCULAR: Unremarkable. PELVIC VISCERA: The uterus has been removed. No pelvic mass. OSSEOUS STRUCTURES: Degenerative changes. CT/CT abdomen pelvis w IV con IMPRESSION: Mild diverticulosis. No evidence of diverticulitis. Multiple small ventral hernias containing fat and small and large bowel. No evidence of obstruction. Small umbilical hernia containing fat. Stable 1.3 cm low-attenuation or cystic structure in the left retroperitoneum. Differential would include a a cyst and cystic degeneration of a lymph node. Fleischner guidelines were followed.
[2023-01-09 08:48] LABS: Alanine Aminotransferase 19 U/L (0-31); Albumin Level 4.2 g/dL (3.5-5.0); Alkaline Phosphatase 91 U/L (39-117); Anion Gap 13 (12-20); Aspartate Amino Transferase 23 U/L (5-31); Bilirubin Direct 0.2 mg/dL (0.0-0.5); Bilirubin Total 0.8 mg/dL (0.0-1.0); Blood Urea Nitrogen 15 mg/dL (9-16); Calcium 9.5 mg/dL (8.4-10.2); Carbon Dioxide 27 mmol/L (22-29); Chloride 105 mmol/L (96-108); Cholesterol 218 mg/dL; Estimated Glomerular Filt Rate > 60; Glucose Random 158 mg/dL (60-115); HDL Cholesterol 62 mg/dL; LDL Cholesterol Calculated 139 mg/dl; Lipase 24 U/L (8-78); Potassium 4.5 mmol/L (3.3-5.1); Sodium 140 mmol/L (135-145); Triglycerides 89 mg/dL
[2023-01-09] MEDS: iohexoL 350 MG/ML 100 ML INFUS..BTL 85 ML IV (10:07)
[2023-01-09] MEDS: Barium Sulfate Oral (Mocha) 450 ML ORAL.SUSP 900 ML PO (10:08)
== END 2023-01-09 07:16 | disposition home or self-care (01) ==
LOC: HO.CT 07:15
PROVIDERS: PCP Nurse Practitioner Family; Visit Provider Nurse Practitioner Family
DX: R10.9 Unspecified abdominal pain (principal); K21.9 Gastro-esophageal reflux disease without esophagitis; I25.10 Atherosclerotic heart disease of native coronary artery without angina pectoris
CPT/HCPCS: 36415; 74177; 80053; 80061; 82248; 83690; Q9967

== ENCOUNTER → 2023-02-10 09:45 | Outpatient (BNVA) | payer MEDICARE, MEDICAID, SELFPAY | PROVIDERS: PCP Nurse Practitioner Family; Referring Provider Nurse Practitioner Family; Visit Provider Nurse Practitioner Family | DX: K21.9 Gastro-esophageal reflux disease without esophagitis (principal); K58.1 Irritable bowel syndrome with constipation; R10.32 Left lower quadrant pain | CPT/HCPCS: 99212 ==

== ENCOUNTER 2023-02-23 14:08 | Outpatient (REF) | payer MEDICARE, MEDICAID, SELFPAY ==
[2023-03-02 22:04] LABS: Pancreatic Elastase-1 474 mcg/g
== END 2023-02-23 14:09 | disposition home or self-care (01) ==
LOC: HO.LNP 14:08
PROVIDERS: Visit Provider Nurse Practitioner Family
DX: R10.9 Unspecified abdominal pain (principal); K21.9 Gastro-esophageal reflux disease without esophagitis
CPT/HCPCS: 82656; 87338

== ENCOUNTER → 2023-04-07 09:36 | Outpatient (BNVA) | payer MEDICARE, MEDICAID, SELFPAY | PROVIDERS: PCP Nurse Practitioner Family; Visit Provider Nurse Practitioner Family | DX: K21.9 Gastro-esophageal reflux disease without esophagitis (principal); A04.8 Other specified bacterial intestinal infections | CPT/HCPCS: 99212 ==

== ENCOUNTER 2023-04-17 13:39 | Day surgery (SDC) | payer MEDICARE, MEDICAID, SELFPAY ==
--- NOTE | 2023-04-13 15:05 | P.CONAN_ITS ---
Documented by User: Arely Ordonez NP 04/13/23 15:07 HPI - Anesthesia Eval Consult details Narrative: 68yo F for Upper Endoscopy Follows cardiology yearly. Stable at 03/2022 visit, rec's better CPAP compliance PMFSH Active Problems Active Problems: All Active Problems (Updated 04/21/22 @ 09:24 by Vamshi Mcmanus MD) Atherosclerotic cardiovascular disease (Acute) Helicobacter pylori (H. pylori) (Acute) INDERJIT (obstructive sleep apnea) (Acute) PVC (premature ventricular contraction) (Acute) Heart palpitations (Acute) Varicose veins of right lower extremity with inflammation (Acute) Snoring (Acute) Witnessed apneic spells (Acute) Nonobstructive atherosclerosis of coronary artery (Acute) PAC (premature atrial contraction) (Acute) Past Medical History Medical History Arthritis Depression Diabetes GERD (gastroesophageal reflux disease) Helicobacter pylori (H. pylori) Hyperlipidemia Hypertension Nonobstructive atherosclerosis of coronary artery INDERJIT (obstructive sleep apnea) PAC (premature atrial contraction) Family History Family History Father No problems noted. 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 If so, by whom?: No Are you DNR?: No Advance Directives: No Advance Directives Information Provided: Yes Advance Directives on File: No Recently lost weight without trying: No Nutrition Risks: No Nutritional Risk Meds Allergies Allergy/AdvReac Type Severity Reaction Status Date / Time pregabalin [From Lyrica] Allergy Severe body rash Verified 04/07/23 09:57 enalapril [ENALAPRIL] Allergy Unknown COUGH Verified 04/07/23 09:57 Penicillins [PENICILLINS] Allergy Unknown RASH Verified 04/07/23 09:57 pravastatin [PRAVASTATIN] Allergy Unknown RASH Verified 04/07/23 09:57 glipizide AdvReac Unknown hypoglycemi Verified 04/07/23 09:57 a metformin AdvReac Unknown abdominal Verified 04/07/23 09:57 pain simvastatin AdvReac Unknown stomach Verified 04/07/23 09:57 upset Home Medications Medication Instructions Recorded Confirmed Last Taken Type zolpidem 10 mg tablet 10 mg PO BEDTIME 11/18/20 04/14/23 Unknown History bupropion HCl 150 mg 24 hr tablet, 150 mg PO DAILY 01/21/21 04/21/22 Unknown History extended release bupropion HCl 300 mg 24 hr tablet, 300 mg PO DAILY 09/14/21 04/21/22 Unknown History extended release lorazepam 0.5 mg tablet 0.5 mg PO DAILY PRN Anxiety 09/14/21 04/14/23 Unknown History sitagliptin phosphate 100 mg 100 mg PO DAILY 09/14/21 04/14/23 Unknown History tablet (Januvia) amitriptyline 10 mg tablet mg PO BID 12/20/21 04/21/22 Unknown History amlodipine 10 mg tablet 10 mg PO DAILY 12/13/22 04/14/23 Unknown History buspirone 30 mg tablet 30 mg PO ONCE 12/13/22 Unknown History duloxetine 20 mg capsule,delayed mg PO 12/13/22 Unknown History release estradiol 0.01% (0.1 mg/gram) vaginal 12/13/22 Unknown History vaginal cream sumatriptan succinate 50 mg tablet mg PO 12/13/22 Unknown History Exam Exam Date and Time: April 13, 2023 1505 Pertinent Lab Results Pertinent Lab Results: Laboratory Tests 01/08/20 01/09/23 11:02 07:23 WBC 13.4 H Hgb 15.1 Hct 45.0 Plt Count 197 Sodium 140 Potassium 4.5 Chloride 105 Carbon Dioxide 27 BUN 15 Creatinine 0.73 Narrative Narrative: ECHO 2021 Conclusions: - The left ventricular systolic function is low normal.? The ? ? calculated ejection fraction is 53% by biplane method. ? - Mild aneurysmal appearance of interatrial septum.? - There is mild tricuspid valve regurgitation. ? - Mild pulmonary hypertension is present.? Holter 2021 Underlying rhythm is sinus; Average rate 61/min; range 47-117/min; About 49% of the time, rate <60/min; Rare supraventricular ectopy with very? brief runs;? some blocked PACs; Rare ventricular ectopy with minimal burden; few couplets, no runs; Patient did not return diary Assessment and Plan Assessment Anesthesia Assessment: Chart Reviewed Final Anesthetic Review Family History of Problems with Anesthesia: No History of Problems with Anesthesia: No Documented by User: Srinivasan Zamorano MD 04/17/23 17:37 [facility] Past Medical History Medical History Arthritis Depression Diabetes GERD (gastroesophageal reflux disease) Helicobacter pylori (H. pylori) Hyperlipidemia Hypertension Nonobstructive atherosclerosis of coronary artery INDERJIT (obstructive sleep apnea) PAC (premature atrial contraction) Family History Family History Father No problems noted. Mother Cervical cancer Surgical History Surgical History (Updated 04/14/23 @ 09:25 by Deborah Sahni, HAI) H/O tooth extraction History of esophagogastroduodenoscopy (EGD) History of exploratory laparotomy History of hysterectomy History of tubal ligation Hx of colonoscopy Status post phlebectomy Social History Social History (Updated 04/14/23 @ 09:25 by Deborah Sahni, RN) Household Members: Children Household Members Other:: son Are you a primary care director rn to a significant other at home: Yes (disabled son) Do you presently have visiting nurse or other home services: No Alcohol intake: current Alcohol intake frequency: holidays/special occasions only Patient Tobacco Use Status: Never used Tobacco Use of substances other than those prescribed or required for medical reasons: No Have you been hit, kicked, punched, or otherwise hurt by someone within the past year? If so, by whom?: No Are you DNR?: No Advance Directives: No Advance Directives Information Provided: Yes Advance Directives on File: No Recently lost weight without trying: No Nutrition Risks: No Nutritional Risk Meds Allergies Allergy/AdvReac Type Severity Reaction Status Date / Time pregabalin [From Lyrica] Allergy Severe body rash Verified 04/07/23 09:57 enalapril [ENALAPRIL] Allergy Unknown COUGH Verified 04/07/23 09:57 Penicillins [PENICILLINS] Allergy Unknown RASH Verified 04/07/23 09:57 pravastatin [PRAVASTATIN] Allergy Unknown RASH Verified 04/07/23 09:57 glipizide AdvReac Unknown hypoglycemi Verified 04/07/23 09:57 a metformin AdvReac Unknown abdominal Verified 04/07/23 09:57 pain simvastatin AdvReac Unknown stomach Verified 04/07/23 09:57 upset Home Medications Medication Instructions Recorded Confirmed Last Taken Type zolpidem 10 mg tablet 10 mg PO BEDTIME 11/18/20 04/14/23 Unknown History bupropion HCl 150 mg 24 hr tablet, 150 mg PO DAILY 01/21/21 04/21/22 Unknown History extended release bupropion HCl 300 mg 24 hr tablet, 300 mg PO DAILY 09/14/21 04/21/22 Unknown History extended release lorazepam 0.5 mg tablet 0.5 mg PO DAILY PRN Anxiety 09/14/21 04/14/23 Unknown History sitagliptin phosphate 100 mg 100 mg PO DAILY 09/14/21 04/14/23 Unknown History tablet (Januvia) amitriptyline 10 mg tablet mg PO BID 12/20/21 04/21/22 Unknown History amlodipine 10 mg tablet 10 mg PO DAILY 12/13/22 04/14/23 Unknown History buspirone 30 mg tablet 30 mg PO ONCE 12/13/22 Unknown History duloxetine 20 mg capsule,delayed mg PO 12/13/22 Unknown History release estradiol 0.01% (0.1 mg/gram) vaginal 12/13/22 Unknown History vaginal cream sumatriptan succinate 50 mg tablet mg PO 12/13/22 Unknown History Exam Airway Mallampati Class: III TM Dist: >3cm Loose/Missing/Broken Teeth: Yes Assessment and Plan Assessment Anesthesia Assessment: Anesthesia Plan Discussed Final Anesthetic Review NPO: Yes ASA Class: III Final Preanesthetic Review: Meds/Allgs Chart Reviewed, Consent Obtained/Reviewed and Anes Risks/Benef Reviewed Patient Risk: Intermediate Procedure Risk: Intermediate Anesthetic Plan Anesthetic Plan: MAC: Disposition: Standard PACU
[2023-04-13 16:33] VITALS: BMI 36.6
[2023-04-14 09:19] VITALS: BMI 36.6
[2023-04-17 14:07] VITALS: BP 141/55; PULSE 62; RESP 18; TEMP 36.6; O2SAT 99
[2023-04-17] MEDS: Lactated Ringers 1,000 ML 100 ML IVCONT (14:08)
[2023-04-17 14:22] LABS: Glucose, Whole Blood 123 mg/dL (60-115)
--- NOTE | 2023-04-17 14:30 | MHC.SHP ---
Pre-Procedural Eval Section A Date of Service: 04/17/23 The patient is an INPATIENT: No Changes since office visit: Yes Patient answered all questions; No Cold of Flu in the past 2 weeks, No New Medical Problems and No Changes in Medication The History & Physical has been completed within 30 days and I have reviewed it.: Yes Section B Chief Complaint: reflux disease Allergies: Allergies Allergy/AdvReac Type Severity Reaction Status Date / Time pregabalin [From Lyrica] Allergy Severe body rash Verified 04/07/23 09:57 enalapril [ENALAPRIL] Allergy Unknown COUGH Verified 04/07/23 09:57 Penicillins [PENICILLINS] Allergy Unknown RASH Verified 04/07/23 09:57 pravastatin [PRAVASTATIN] Allergy Unknown RASH Verified 04/07/23 09:57 glipizide AdvReac Unknown hypoglycemi Verified 04/07/23 09:57 a metformin AdvReac Unknown abdominal Verified 04/07/23 09:57 pain simvastatin AdvReac Unknown stomach Verified 04/07/23 09:57 upset Plan Diagnosis/Plan: Change (Proceed with EGD) I have reviewed the history and physical and performed a pertinent physical examination on my patient. No changes have occurred unless specified. Time Spent With Patient Time: Total time managing care of this patient today ____ minutes.
--- NOTE | 2023-04-17 14:32 | P.OP_ITS ---
Operative Note Operative Note Date of Service: 04/17/23 Narrative: FLEXIBLE TRANSORAL UPPER GASTROINTESTINAL ENDOSCOPY WITH BIOPSIES Pre-op diagnosis: GERD, persistent/recurrent H pylori infection Post-op diagnosis: same Endoscopist:? Carlos A Rose MD Anesthesia:?MAC Consent: Indications for the procedure and potential complications of bleeding, perforation, reaction to medications and missed diagnosis were discussed with the patient and informed consent was obtained. Instrument: Olympus GIF H 190 mid size upper endoscope Monitoring: Vital signs and clinical assessment, continuous EKG monitoring, Pulse oximetry, Carbon Dioxide monitoring and blood pressure monitoring were done throughout the procedure. Procedure: The patient was placed in the left lateral decubitis position and pre-procedure medications were administered and a bite block was placed. The endoscope was inserted into the mouth and advanced under direct vision to the third part of duodenum. A careful inspection was made as the upper endoscope was withdrawn including a retroflexed examination of the proximal stomach; Findings and interventions are described below. Findings: Larynx: Normal Esophagus: GE junction at 38 cms. No esophagitis or Irizarry's. Stomach: Mild gastric erythema. Biopsies were obtained for histology and HP culture and sensitivities. Grade 2 flap valve on retroflexed examination of the cardia. Duodenum: Normal bulb and descending duodenum Intervention: Biopsies as noted above Impression and Post Procedure Diagnosis: Endoscopy Findings: STOMACH: Mild gastric erythema. Biopsies were obtained for histology and HP culture and sensitivities. Plan: Await pathology results Patient to schedule a FU appointment in the GI Clinic with Lianne Mccray FNP- [place]. Above findings were reviewed with the patient and GERD handout was given in the discharge area
[2023-04-17 14:55] VITALS: BP 108/53; PULSE 68; RESP 16; TEMP 36.6; O2SAT 97
[2023-04-17 15:10] VITALS: BP 131/65; PULSE 54; RESP 16; TEMP 36.6; O2SAT 98
== END 2023-04-17 15:35 | disposition home or self-care (01) ==
PROVIDERS: Visit Provider Internal Medicine Gastroenterology
PROC: 0DJ08ZZ Inspection of Upper Intestinal Tract, Via Natural or Artificial Opening Endoscopic (ICD-10-PCS; CPT 43235; principal; 2023-04-17 14:30)
DX: K21.9 Gastro-esophageal reflux disease without esophagitis (principal); K29.50 Unspecified chronic gastritis without bleeding; B96.81 Helicobacter pylori [H. pylori] as the cause of diseases classified elsewhere; I10 Essential (primary) hypertension; I49.1 Atrial premature depolarization; I25.10 Atherosclerotic heart disease of native coronary artery without angina pectoris; E78.5 Hyperlipidemia, unspecified; G47.33 Obstructive sleep apnea (adult) (pediatric); E11.9 Type 2 diabetes mellitus without complications; Z79.84 Long term (current) use of oral hypoglycemic drugs; Z79.899 Other long term (current) drug therapy; Z88.0 Allergy status to penicillin; Z88.8 Allergy status to other drugs, medicaments and biological substances
CPT/HCPCS: 43239; 36415; 82947; 87081; 88305; 88342

== ENCOUNTER → 2023-05-02 08:00 | Outpatient (BNVA) | payer MEDICARE, MEDICAID, SELFPAY | PROVIDERS: Referring Provider Nurse Practitioner Family; Visit Provider Internal Medicine | DX: I49.1 Atrial premature depolarization (principal); I49.3 Ventricular premature depolarization; I25.10 Atherosclerotic heart disease of native coronary artery without angina pectoris; G47.33 Obstructive sleep apnea (adult) (pediatric) | CPT/HCPCS: 93005; 99212 ==

== ENCOUNTER → 2023-05-10 09:53 | Outpatient (BNVA) | payer MEDICARE, MEDICAID, SELFPAY | PROVIDERS: Visit Provider Nurse Practitioner Family | DX: K21.9 Gastro-esophageal reflux disease without esophagitis (principal); A04.8 Other specified bacterial intestinal infections; R14.0 Abdominal distension (gaseous); K59.04 Chronic idiopathic constipation | CPT/HCPCS: 99212 ==

== ENCOUNTER 2023-05-15 09:14 | Emergency (ER) | payer MEDICARE, MEDICAID, SELFPAY ==
--- NOTE | ~2023-05-15 | XR_ITS ---
EXAMINATION: XR CHEST CLINICAL INFORMATION: Shortness of breath COMPARISON: Previous abdominal and pelvic CT scans most recent December 2022 TECHNIQUE: 2 views of the chest were obtained. FINDINGS: The cardiac silhouette does not appear enlarged. The thoracic aorta is tortuous. Hilar and mediastinal contours are otherwise unremarkable. The lungs are clear. No pleural effusion or pneumothorax. There is increased thoracic kyphosis and degenerative change of the spine. XR/XR chest 2V IMPRESSION: No evidence for acute disease in the chest.
--- NOTE | ~2023-05-15 | US_ITS ---
EXAMINATION: US VENOUS ULTRASOUND WITH DOPPLER LOWER EXTREMITY, BILATERAL CLINICAL INFORMATION: Bilateral lower extremity swelling COMPARISON: None available. TECHNIQUE: Ultrasound of the deep veins is performed from the hip to the calf with compression sonography and color and pulse Doppler assessment. Spectral analysis with color-flow imaging is performed. FINDINGS: RIGHT: There is normal venous compression and respiratory variation and augmented flow. The visualized common femoral vein, superficial femoral vein, profunda femoral vein, popliteal vein, and the trifurcation region shows no evidence of deep venous thrombosis. There is no significant popliteal fossa cyst. LEFT: There is normal venous compression and respiratory variation and augmented flow. The visualized common femoral vein, superficial femoral vein, profunda femoral vein, popliteal vein, and the trifurcation region shows no evidence of deep venous thrombosis. There is no significant popliteal fossa cyst. US/US venous duplex LE BI IMPRESSION: No DVT demonstrated in the bilateral lower extremity.
[2023-05-15 09:41] VITALS: BP 143/66; PULSE 70; RESP 18; TEMP 36.1; O2SAT 99; BMI 37.6
[2023-05-15 10:04] LABS: MANUAL DIFF FLAG NO
[2023-05-15 10:06] LABS: Basophils Percent Auto 0.6 % (0-2); Eosinophils Absolute Auto 0.1 X10*3/uL (0.0-0.4); Eosinophils Percent Auto 1.7 % (0-4); Hematocrit 39.3 % (37.0-47.0); Hemoglobin 12.9 g/dl (12.0-16.0); Imm Gran Abs Auto 0.03 X10*3/uL (0.00-0.03); Imm Gran Pct Auto 0.4 % (0.0-0.4); Lymphocytes Absolute Auto 1.2 X10*3/uL (1.2-4.9); Lymphocytes Percent Auto 17.3 % (20-40); Mean Corpuscular HGB Conc 32.8 g/dl (31.0-35.0); Mean Corpuscular Hemoglobin 30.8 pg (27.0-33.0); Mean Corpuscular Volume 93.8 fL (80.0-98.0); Monocytes Absolute Auto 0.6 X10*3/uL (0.1-1.2); Monocytes Percent Auto 8.6 % (2-11); Neutrophils Absolute Auto 5.1 x10*3/uL (2.0-8.3); Neutrophils Percent Auto 71.4 % (45-73); Platelet Count 165 X10*3/uL (160-400); Red Blood Count 4.19 X10*6/uL (4.20-5.50); Red Cell Distribution Width 12.8 % (11.0-16.0); White Blood Count 7.1 X10*3/uL (4.8-10.8)
[2023-05-15 10:26] LABS: Alanine Aminotransferase 15 U/L (0-31); Alkaline Phosphatase 104 U/L (39-117); Anion Gap 14 (12-20); Aspartate Amino Transferase 22 U/L (5-31); Blood Urea Nitrogen 11 mg/dL (9-16); Calcium 9.8 mg/dL (8.4-10.2); Chloride 107 mmol/L (96-108); Creatinine Clr Calc Pharmacy 81.3; Estimated Glomerular Filt Rate > 60; Glucose Random 138 mg/dL (60-115); Potassium 4.5 mmol/L (3.3-5.1); Sodium 142 mmol/L (135-145); Total Protein 7.1 g/dL (6.5-8.0)
[2023-05-15 10:43] LABS: Bilirubin Total 1.2 mg/dL (0.0-1.0); Carbon Dioxide 26 mmol/L (22-29)
--- NOTE | 2023-05-15 10:57 | ED.GENADULT ---
HPI - General Adult General Chief complaint: General Medical Stated complaint: swelling in legs Time Seen by Provider: 05/15/23 10:56 Source: patient Mode of arrival: ambulatory Limitations: language barrier History of Present Illness HPI narrative: 68 yo Swedish speaking female with a history if heart palpitations, INDERJIT, and diabetes presents to ER for bilateral lower extremity swelling that started about 1 week ago. She states that she has been short of breath on exertion with walking and going up stairs. She states that she has chest tightness when she breathes but denies chest pain. She reports that she saw her oncology account specialist which prompted her visit today. She reports burning with urination and states that she is seeing a urologist. She denies fevers, difficulty with walking, injury to her legs. MD complaint: le edema Onset (ago): week(s) Location: lower extremity Radiation: non-radiation Severity: mild and moderate Quality: aching Pain Consistency: intermittent Relieving factors: other (elevation of legs) Exacerbating factors: other (standing for long periods) Associated symptoms: headaches and shortness of breath Treatments prior to arrival: none Related Data Home Medications Medication Instructions Recorded Confirmed zolpidem 10 mg tablet 10 mg PO BEDTIME 11/18/20 05/02/23 bupropion HCl 150 mg 24 hr tablet, 150 mg PO DAILY 01/21/21 05/02/23 extended release bupropion HCl 300 mg 24 hr tablet, 300 mg PO DAILY 09/14/21 05/02/23 extended release lorazepam 0.5 mg tablet 0.5 mg PO DAILY PRN Anxiety 09/14/21 05/02/23 sitagliptin phosphate 100 mg 100 mg PO DAILY 09/14/21 05/02/23 tablet (Januvia) amitriptyline 10 mg tablet mg PO BID 12/20/21 05/02/23 amlodipine 10 mg tablet 10 mg PO DAILY 12/13/22 05/02/23 buspirone 30 mg tablet 30 mg PO ONCE 12/13/22 05/02/23 duloxetine 20 mg capsule,delayed mg PO 12/13/22 05/02/23 release estradiol 0.01% (0.1 mg/gram) vaginal 12/13/22 05/02/23 vaginal cream sumatriptan succinate 50 mg tablet mg PO 12/13/22 05/02/23 Previous Rx's Medication Instructions Recorded cholecalciferol (vitamin D3) 50 50 mcg PO DAILY #30 caps 12/20/21 mcg (2,000 unit) capsule hydrocortisone 2.5 % topical cream 1 appl IN BID-QID PRN hemorrhoids 03/21/22 with perineal applicator #30 grams (Proctosol HC) atenolol 25 mg tablet 25 mg PO DAILY #90 tabs 08/29/22 rosuvastatin 20 mg tablet (Crestor) 20 mg PO DAILY #90 tabs 01/18/23 pantoprazole 40 mg tablet,delayed 40 mg PO DAILY #90 tabs 02/10/23 release sucralfate 1 gram tablet 1 g PO BEDTIME #90 tabs 04/26/23 rosuvastatin 40 mg tablet 40 mg PO DAILY #30 tabs 05/02/23 linaclotide 145 mcg capsule 145 mcg PO DAILY #90 caps 05/10/23 (Linzess) simethicone 80 mg chewable tablet 80 mg PO TID-QID PRN abdominal 05/10/23 (Gas Relief (simethicone)) distention #120 tabs furosemide 20 mg tablet (Lasix) 20 mg PO DAILY #5 tabs 05/15/23 Allergies Allergy/AdvReac Type Severity Reaction Status Date / Time pregabalin [From Lyrica] Allergy Severe body rash Verified 05/10/23 10:16 enalapril [ENALAPRIL] Allergy Unknown COUGH Verified 05/10/23 10:16 Penicillins [PENICILLINS] Allergy Unknown RASH Verified 05/10/23 10:16 pravastatin [PRAVASTATIN] Allergy Unknown RASH Verified 05/10/23 10:16 glipizide AdvReac Unknown hypoglycemi Verified 05/10/23 10:16 a metformin AdvReac Unknown abdominal Verified 05/10/23 10:16 pain simvastatin AdvReac Unknown stomach Verified 05/10/23 10:16 upset Review of Systems Review of Systems: Yes all other systems are reviewed and are negative PMFSH Past Medical History Medical History (Updated 05/15/23 @ 15:16 by MOHINI Herndon) Arthritis Depression Diabetes GERD (gastroesophageal reflux disease) Helicobacter pylori (H. pylori) Hyperlipidemia Hypertension Nonobstructive atherosclerosis of coronary artery INDERJIT (obstructive sleep apnea) PAC (premature atrial contraction) Surgical History (Updated 05/10/23 @ 10:25 by Roman Eastman) H/O tooth extraction History of esophagogastroduodenoscopy (EGD) History of exploratory laparotomy History of hysterectomy History of tubal ligation Hx of colonoscopy Status post phlebectomy Family History Family History Father No problems noted. Mother Cervical cancer Social History Social History Household Members: Children Household Members Other:: son Are you a primary customer care consultant to a significant other at home: Yes (disabled son) Do you presently have visiting nurse or other home services: No Alcohol intake: never Patient Tobacco Use Status: Never used Tobacco Physical Exam ED Vital Signs: Vital Signs - 24 hr 05/15/23 09:41 05/15/23 11:22 05/15/23 12:35 Temperature 97.0 F Pulse Rate 70 70 67 Respiratory Rate 18 20 18 Blood Pressure 143/66 H 139/61 138/60 Pulse Oximetry 99 98 98 Oxygen Delivery Method Room Air Room Air Room Air 05/15/23 14:02 05/15/23 15:43 Temperature 98.1 F Pulse Rate 69 72 Respiratory Rate 16 18 Blood Pressure 153/71 H 145/72 H Pulse Oximetry 99 96 Oxygen Delivery Method Room Air BMI result Body Mass Index 37.6 Appearance: Alert. Oriented X3. No acute distress. HEENT: normal inspection CVS: Normal heart rate and rhythm. No murmurs, rubs, or gallops. Pulses normal. Respiratory: No respiratory distress. Clear to auscultation bilaterally Abdomen: soft, nontender, nondistended abdomen with normoactive bowel sounds Skin: Skin warm and dry. Normal skin color. Normal skin turgor. Red petechial rash on the right medial mallelous Extremities: +1 pititng edema on the right and left foot. Neuro: Oriented X 3. No motor deficit. No sensory deficit. Medical Decision Making Medical Decision Making MDM Narrative: 68 yo female with a history if heart palpitations, atherosclerotic cardiovascular disease, INDERJIT, and diabetes presents to ER for bilateral lower extremity swelling that started about 1 week ago. She reports SOB with exertion. On physical exam she has bilateral +1 pitting edema of the feet. Basic labs were ordered, as well as a chest xray, venous duplex, ECG. BNP is 306 (newly elevated) which may be indicative of early onset congestive heart failure. ECG, chest xray, and venous duplex came back normal without pathology. She had a transthoracic echocardiogram done 04/13/22 by her preparer samples and repairs Dr. Mcmanus which demonstrated: left ventricular systolic function is low normal. The calculated ejection fraction is 53%. Diagnosis is most consistent with lower extremity edema caused by possible early onset CHF. Recommend that patient follow-up with her preparer samples and repairs. Differential Diagnosis Differential Diagnoses: The differential diagnosis associated with the presentation includes lower extremity edema, congestive heart failure, DVT, pulmonary embolism, venous insufficiency Admission/Observation Consideration of admission/observation: Escalation of care including admission/observation considered question new CHF but no evidence of anasarca, no hypoxia, LE edema is trace Lab Data MDM Lab Attestation statement: I reviewed the patient's lab results. Labs demonstrated elevated BNP which may be suggestive of early onset CHF. 05/15/23 10:00 05/15/23 10:00 Labs: Lab Results 05/15/23 05/15/23 05/15/23 Range/Units 10:00 10:00 10:00 WBC 7.1 (4.8-10.8) X10*3/uL RBC 4.19 L (4.20-5.50) X10*6/uL Hgb 12.9 (12.0-16.0) g/dl Hct 39.3 (37.0-47.0) % MCV 93.8 (80.0-98.0) fL MCH 30.8 (27.0-33.0) pg MCHC 32.8 (31.0-35.0) g/dl RDW 12.8 (11.0-16.0) % Plt Count 165 (160-400) X10*3/uL MPV 10.0 (9.4-12.3) fL Immature Gran % (Auto) 0.4 (0.0-0.4) % Neut % (Auto) 71.4 (45-73) % Lymph % (Auto) 17.3 L (20-40) % Dixie % (Auto) 8.6 (2-11) % Eos % (Auto) 1.7 (0-4) % Baso % (Auto) 0.6 (0-2) % Lymph # (Auto) 1.2 (1.2-4.9) X10*3/uL Dixie # (Auto) 0.6 (0.1-1.2) X10*3/uL Eos # (Auto) 0.1 (0.0-0.4) X10*3/uL Baso # (Auto) 0.0 (0.0-0.2) X10*3/uL Abs Immat Gran (auto) 0.03 (0.00-0.03) X10*3/uL Absolute Neuts (auto) 5.1 (2.0-8.3) x10*3/uL Absolute Nucleated RBC 0.000 (0.0-0.012) X10*3/uL Nucleated RBC % (auto) 0.0 (0.0-0.2) /100WBC Sodium 142 (135-145) mmol/L Potassium 4.5 (3.3-5.1) mmol/L Chloride 107 (96-108) mmol/L Carbon Dioxide 26 (22-29) mmol/L Anion Gap 14 (12-20) BUN 11 (9-16) mg/dL Creatinine 0.71 (0.5-1.4) mg/dL Estim Creat Clear Calc 81.3 Estimated GFR > 60 Random Glucose 138 H (60-115) mg/dL Calcium 9.8 (8.4-10.2) mg/dL Total Bilirubin 1.2 H (0.0-1.0) mg/dL AST 22 (5-31) U/L ALT 15 (0-31) U/L Alkaline Phosphatase 104 (39-117) U/L B-Natriuretic Peptide 306 H (<100) pg/mL Total Protein 7.1 (6.5-8.0) g/dL Albumin 4.0 (3.5-5.0) g/dL Urine Color Urine Appearance Urine pH (5.0-9.0) Ur Specific [place] (1.005-1.025) Urine Protein (Neg-Trace) mg/dL Urine Glucose (UA) (Negative) mg/dL Urine Ketones (Negative) mg/dL Urine Blood (Negative) Urine Nitrite (Negative) Ur Leukocyte Esterase (Negative) Urine RBC (0-2) /HPF Urine WBC (0-5) /HPF Ur Squamous Epith Cells (0-2) /HPF Urine Bacteria (None Seen) Hyaline Casts (0-2) /LPF 05/15/23 Range/Units 12:37 WBC (4.8-10.8) X10*3/uL RBC (4.20-5.50) X10*6/uL Hgb (12.0-16.0) g/dl Hct (37.0-47.0) % MCV (80.0-98.0) fL MCH (27.0-33.0) pg MCHC (31.0-35.0) g/dl RDW (11.0-16.0) % Plt Count (160-400) X10*3/uL MPV (9.4-12.3) fL Immature Gran % (Auto) (0.0-0.4) % Neut % (Auto) (45-73) % Lymph % (Auto) (20-40) % Dixie % (Auto) (2-11) % Eos % (Auto) (0-4) % Baso % (Auto) (0-2) % Lymph # (Auto) (1.2-4.9) X10*3/uL Dixie # (Auto) (0.1-1.2) X10*3/uL Eos # (Auto) (0.0-0.4) X10*3/uL Baso # (Auto) (0.0-0.2) X10*3/uL Abs Immat Gran (auto) (0.00-0.03) X10*3/uL Absolute Neuts (auto) (2.0-8.3) x10*3/uL Absolute Nucleated RBC (0.0-0.012) X10*3/uL Nucleated RBC % (auto) (0.0-0.2) /100WBC Sodium (135-145) mmol/L Potassium (3.3-5.1) mmol/L Chloride (96-108) mmol/L Carbon Dioxide (22-29) mmol/L Anion Gap (12-20) BUN (9-16) mg/dL Creatinine (0.5-1.4) mg/dL Estim Creat Clear Calc Estimated GFR Random Glucose (60-115) mg/dL Calcium (8.4-10.2) mg/dL Total Bilirubin (0.0-1.0) mg/dL AST (5-31) U/L ALT (0-31) U/L Alkaline Phosphatase (39-117) U/L B-Natriuretic Peptide (<100) pg/mL Total Protein (6.5-8.0) g/dL Albumin (3.5-5.0) g/dL Urine Color Yellow Urine Appearance Clear Urine pH 7.0 (5.0-9.0) Ur Specific [place] 1.010 (1.005-1.025) Urine Protein Negative (Neg-Trace) mg/dL Urine Glucose (UA) Negative (Negative) mg/dL Urine Ketones Negative (Negative) mg/dL Urine Blood Negative (Negative) Urine Nitrite Negative (Negative) Ur Leukocyte Esterase Trace H (Negative) Urine RBC 0-2 (0-2) /HPF Urine WBC 0-5 (0-5) /HPF Ur Squamous Epith Cells 6-10 (0-2) /HPF Urine Bacteria 1+ (None Seen) Hyaline Casts 0-2 (0-2) /LPF Independent Interpretation I performed an independent interpretation of an: EKG, Ultrasound and CT Scan Interpretation: EKG was reviewed and was normal sinus rhythm. U/S venous duplex was reviewed and is normal, I agree with the radiologist reading. Chest XRay was reviewed and is normal, I agree with the radiologist reading. Radiology Impression Discussion of test interpretation with radiology: I have reviewed the radiologist's reading. Radiologist Impression: ECG: Normal sinus rhythm Cannot rule out Anterior infarct (cited on or before 15-MAY-2023) Abnormal ECG When compared with ECG of 21-MAR-2017 10:06, Premature atrial complexes are no longer Present US/US venous duplex LE BI IMPRESSION: No DVT demonstrated in the bilateral lower extremity. XR/XR chest 2V IMPRESSION: No evidence for acute disease in the chest. Independent Historian Clinical information obtained from an independent historian. History obtained from or confirmed by: Other (son at the bedside) External Record Review External record reviewed: Office record, Outpatient record, Prior outpatient labs and Prior outpatient radiology Prescription Management I considered prescription management with: Other (diuretic) Chronic Conditions Patient?s care impacted by: Hypertension Critical Care Time Critical Care Time Critical Care Time: No Discharge Plan Discharge Clinical Impression: Bilateral edema of lower extremity Patient Disposition: Home, Self-Care Instructions: Leg Edema (ED) Additional Instructions: Ultrasound was negative for blood clots Recommend elevation of your legs, reduce salt intake with a low soduim diet, and compression stocks on both legs wear during the day and take off at night Prescribed a low dose of Lasix, a diuretic to help reduce swelling in the leg, you may experience increased urination Due to new swelling in the legs and elevated lab result indicating possible heart involvement, please follow-up with your preparer samples and repairs El ultrasonido fue negativo para co?gulos de ilsa. Recomiende la elevaci?n de las piernas, reduzca la ingesta de casie con iraida dieta baja en sodio y las medias de compresi?n en ambas piernas se usen chelsi el d?a y se quiten por la noche. Si le recetaron iraida dosis baja de Lasix, un diur?salty para ayudar a reducir la hinchaz?n en la pierna, es posible que experimente un aumento de la micci?n. Debido a iraida nueva hinchaz?n en las piernas y un resultado de laboratorio elevado que indica iraida posible afectaci?n card?josé, anatoly un seguimiento con rodriguez cardi?logo Prescriptions: New furosemide [Lasix] 20 mg tablet 20 mg PO DAILY Qty: 5 0RF No Action atenolol 25 mg tablet 25 mg PO DAILY Qty: 90 3RF rosuvastatin [Crestor] 20 mg tablet 20 mg PO DAILY Qty: 90 3RF sucralfate 1 gram tablet 1 g PO BEDTIME Qty: 90 0RF rosuvastatin 40 mg tablet 40 mg PO DAILY Qty: 30 3RF zolpidem 10 mg tablet 10 mg PO BEDTIME bupropion HCl 150 mg tablet extended release 24 hr 150 mg PO DAILY bupropion HCl 300 mg tablet extended release 24 hr 300 mg PO DAILY lorazepam 0.5 mg tablet 0.5 mg PO DAILY PRN (Reason: Anxiety) Januvia 100 mg tablet 100 mg PO DAILY amitriptyline 10 mg tablet PO BID cholecalciferol (vitamin D3) 50 mcg (2,000 unit) capsule 50 mcg PO DAILY Qty: 30 3RF pantoprazole 40 mg tablet,delayed release (DR/EC) 40 mg PO DAILY Qty: 90 4RF Rx Instructions: take one tablet half an hour before breakfast hydrocortisone [Proctosol HC] 2.5 % cream with perineal applicator 1 appl IN BID-QID PRN (Reason: hemorrhoids) Qty: 30 2RF buspirone 30 mg tablet 30 mg PO ONCE sumatriptan succinate 50 mg tablet PO amlodipine 10 mg tablet 10 mg PO DAILY estradiol 0.01 % (0.1 mg/gram) cream vaginal duloxetine 20 mg capsule,delayed release(DR/EC) PO Linzess 145 mcg capsule 145 mcg PO DAILY Qty: 90 2RF simethicone [Gas Relief (simethicone)] 80 mg tablet,chewable 80 mg PO TID-QID PRN (Reason: abdominal distention) Qty: 120 2RF Referrals: [facility] [Provider Group] (new LE swelling, BNP 300s) Kasie Tomlinson NP [Primary Care Provider] - Interventions: ED Discharge Assessment Last Done: 05/15/23 15:52 Discharge Date/Time: 05/15/23 15:53 Print Language: Swedish
--- NOTE | 2023-05-15 11:19 | ECG_ITS ---
Test Reason : sob Blood Pressure : / mmHG Vent. Rate : 071 BPM Atrial Rate : 071 BPM P-R Int : 126 ms QRS Dur : 082 ms QT Int : 400 ms P-R-T Axes : -09 -15 033 degrees QTc Int : 434 ms Normal sinus rhythm Cannot rule out Anterior infarct (cited on or before 15-MAY-2023) Abnormal ECG When compared with ECG of 21-MAR-2017 10:06, Premature atrial complexes are no longer Present Referred By: Yasmin Kenney Electronically Signed By:JEÚSS ERAZO
[2023-05-15 11:22] VITALS: BP 139/61; PULSE 70; RESP 20; O2SAT 98
[2023-05-15 11:38] LABS: B Type Natriuretic Peptide 306 pg/mL (<100)
--- NOTE | 2023-05-15 12:03 | PC.NURSE ---
PT REPORTS BILATERAL LE'S TIGHTNESS, MILD EDEMA NOTED BILATERALLY NO SOB, US AT THE BEDSIDE
[2023-05-15 12:35] VITALS: BP 138/60; PULSE 67; RESP 18; O2SAT 98
[2023-05-15 12:43] LABS: Appearance Urine Clear; Color Urine Yellow; Glucose Urine UA Negative (Negative); Leukocyte Esterase Urine Trace (Negative); Nitrite Urine Negative (Negative); UMIC TRIGGER UACC YES; Urine Blood Negative (Negative); Urine Ketones Negative (Negative); Urine Protein Negative (Neg-Trace)
[2023-05-15 12:45] LABS: Bacteria Urine 1+ (None Seen); Hyaline Casts Urine 0-2 /LPF (0-2); RBC Urine 0-2 /HPF (0-2); WBC Urine 0-5 /HPF (0-5)
[2023-05-15 14:02] VITALS: BP 153/71; PULSE 69; RESP 16; TEMP 36.7; O2SAT 99
--- NOTE | 2023-05-15 14:07 | PC.NURSE ---
PATIENT RESTING COMFORTABLY IN BED, PT LEGS SHOW NO SIGNIFICANT EDEMA, PATIENT RESP EQUAL UNLABORED. AWAITING ULTRASOUND RESULTS FOR DISPOSITION.
[2023-05-15 15:43] VITALS: BP 145/72; PULSE 72; RESP 18; O2SAT 96
== END 2023-05-15 15:53 | disposition home or self-care (01) ==
PROVIDERS: Physician Assistant; Emergency Provider Student in an Organized Health Care Education/Training Program; PCP Nurse Practitioner Family
DX: R60.0 Localized edema (principal); R06.02 Shortness of breath; R00.2 Palpitations; R51.9 Headache, unspecified; Z79.899 Other long term (current) drug therapy
CPT/HCPCS: 36415; 71046; 80053; 81001; 83880; 85025; 93005; 93970; 99284

== ENCOUNTER 2023-05-23 11:49 | Outpatient (REF) | payer MEDICARE, MEDICAID, SELFPAY ==
[2023-05-23 13:45] LABS: Alanine Aminotransferase 17 U/L (0-31); Alkaline Phosphatase 83 U/L (39-117); Aspartate Amino Transferase 17 U/L (5-31); Bilirubin Direct 0.3 mg/dL (0.0-0.5); Bilirubin Total 1.6 mg/dL (0.0-1.0); Cholesterol 133 mg/dL; HDL Cholesterol 55 mg/dL; LDL Cholesterol Calculated 63 mg/dl; Total Protein 6.7 g/dL (6.5-8.0); Triglycerides 77 mg/dL
== END 2023-05-23 11:50 | disposition home or self-care (01) ==
LOC: HO.LAB 11:49
PROVIDERS: Visit Provider Internal Medicine
DX: I25.10 Atherosclerotic heart disease of native coronary artery without angina pectoris (principal)
CPT/HCPCS: 36415; 80061; 80076

== ENCOUNTER 2023-06-12 10:54 | Outpatient (REF) | payer MEDICARE, MEDICAID, SELFPAY ==
--- NOTE | ~2023-06-12 | MM_ITS ---
EXAMINATION: MM SCREENING DIGITAL BREAST TOMOSYNTHESIS, BILATERAL CLINICAL INFORMATION: Screening. Asymptomatic. The lifetime risk of breast cancer based on the Tyrer-Cuzick Model is 3.8%. COMPARISON: Mammography: This study is compared with prior exams dating back to 2018. TECHNIQUE: Digital breast tomosynthesis is performed in both the craniocaudal and mediolateral oblique views along with computer-aided detection (CAD). Synthesized 2D images are generated from the tomosynthesis. FINDINGS: There are scattered areas of fibroglandular density (ACR BI-RADS breast composition Category b). There are no significant masses, abnormal calcifications, or other abnormalities. MM/MM tomosynthesis screening BI IMPRESSION: No mammographic evidence of malignancy. ASSESSMENT: BI-RADS BI-RADS 1 - Negative RECOMMENDATION: Routine annual mammography screening. 1 year F/U This examination should not preclude the clinical evaluation of a suspicious palpable abnormality. This patient's information was entered into a reminder system with a target due date for their next mammogram.
== END 2023-06-12 10:55 | disposition home or self-care (01) ==
LOC: HO.MAMMO 10:54
PROVIDERS: PCP Nurse Practitioner Family; Visit Provider Nurse Practitioner Family
DX: Z12.31 Encounter for screening mammogram for malignant neoplasm of breast (principal)
CPT/HCPCS: 77063; 77067

== ENCOUNTER → 2023-06-12 11:00 | Outpatient (BNV) | payer MEDICARE, MEDICAID, SELFPAY | PROVIDERS: PCP Nurse Practitioner Family; Visit Provider Radiology Diagnostic Radiology | DX: Z12.31 Encounter for screening mammogram for malignant neoplasm of breast (principal) | CPT/HCPCS: 77063; 77067 ==

== ENCOUNTER → 2023-06-20 10:01 | Outpatient (REF) | payer MEDICARE, MEDICAID, SELFPAY ==
--- NOTE | 2023-06-20 10:03 | CA_ITS ---
Transthoracic Echocardiogram Patient (Last, First, Middle): Sis Luo, Gender: Female Date of : 1955 Age: 68 Procedure Date: 06/20/2023 Procedure Type: Transthoracic Echocardiogram Location: OP Height: 160.02 cm Weight: 96.16 kg BSA: 1.98 m2 Heart Rate: bpm BP: 118 / 60 mmHg Database Marketing Manager: Referring MD: Vamshi Mcmanus MD Correspondence Specialist: Nitin Perrin MD Symptoms: I50.9 - Heart failure, unspecified Study Quality: Good ECG Rhythm: Sinus Conclusions: - 1. Low normal LV ejection of 50-55% 2. Moderately dilated left atrium 3. Normal cardiac valvular Dopplers 4. Normal measured RV systolic pressure 5. No gross pericardial effusion Findings Left Ventricle Normal left ventricular cavity size. There is normal left ventricular wall thickness. The left ventricular systolic function is low normal. The visually estimated ejection fraction is between 50-55%. Spectral Doppler is indicative of a normal filling pattern. Right Ventricle Mildly increased right ventricular cavity size. There is normal right ventricular systolic function. Atria The left atrium is moderately dilated. There is no evidence of interatrial shunt. The right atrium is normal in size. Aortic Valve Normal aortic valve structure and function. There is no aortic valve stenosis. There is no aortic valve regurgitation. Mitral Valve Normal mitral valve structure and function. There is trace mitral valve regurgitation. There is no mitral valve stenosis. Pulmonic Valve The pulmonic valve is likely normal. There is trace pulmonic valve regurgitation. Tricuspid Valve Normal tricuspid valve structure. There is mild tricuspid valve regurgitation. The right ventricular systolic pressure is normal. The right ventricular systolic pressure is 33 mmHg. Normal right atrial pressure. There is no evidence of pulmonary hypertension. Great Vessels All visible segments of the aorta are normal in size. The pulmonary artery was not well visualized. Venous The inferior vena cava is normal in size and collapses greater than 50% with inspiration. Pericardium/Pleural There is no evidence of pericardial effusion. Prior Study Comparison Changes noted compared to prior study dated: 04/13/2022. RV systolic pressure is within normal limits on this study Measurements 2D Linear Measurements IVSd: 0.97 0.6-0.9/0.6-1.0 cm LVIDd: 5.43 3.9-5.3/4.2-5.9 cm LVIDd Index: 2.74 2.4-3.2/2.2-3.1 cm/m2 LVIDs: 4.03 2.0-3.6 cm LVPWd: 0.89 0.7-1.1 cm Ao Root: 2.60 2.1-3.5 cm LA Diam: 4.70 2.7-3.8/3.0-4.0 cm LAIDs Index: 2.37 1.5-2.3 cm/m2 LV Mass: 235.75 67-162/88-224 g LV Mass Index: 119.06 43-95/49-115 g/m2 LVOT Diam: 1.90 3.0+(-)1.3 cm 2D Systolic Function EF 4C: 50.10 >55% EF 2C: 55.00 >55% EF BiP: 50.10 >55% Mitral Valve MV Pk E: 0.66 MV PK A: 0.54 MV Decel Time: 243.00 E/A: 1.20 E'Lateral: 9.79 E'Medial: 6.31 E/E' Med: 10.50 E/E' Lat: 6.70 PHT: 71.00 MVA PHT: 3.10 Decel Starr: 2.72 Aortic Valve AoV Pk Brant: 1.39 AoV Mn Barnt: 0.95 AoV VTI: 0.36 AoV Pk Grad: 8.00 Aov Mn Grad: 4.00 JOSE MARIA Cont.VTI: 1.64 LVOT LVOT Pk Brant: 0.74 LVOT Mn Brant: 0.48 LVOT VTI: 0.21 LVOT Pk Grad: 2.00 LVOT Mn Grad: 1.00 LVOT Diam: 1.90 LVOT Area: 2.84 Diastolic Function MV Pk E: 0.66 MV Pk A: 0.54 E/A: 1.20 E'Medial: 6.31 E/E' Med: 10.50 E' Laterial: 9.79 E/E' Lat: 6.70 Right Ventricle TAPSE (mm): 25.00 TVS' Brant: 9.00 Tricuspid Valve TR Pk Brant: 2.76 TR Pk Grad: 30.00 RA Press: 3.00 RVSP: 33.00 Great Vessels Aorta Ao Root-2D: 2.60 2.0-3.7 cm Ao Asc: 2.70 2.1-3.4 cm Pulmonary Valve PV Pk Brant: 0.68 Peak PV Grad: 2.00 Updated in Other Vendor System with Status of Final Nitin Perrin MD electronically signed on 06/20/2023 1:32:23 PM with status of Final
== END ==
LOC: HO.CARD 10:01
PROVIDERS: PCP Nurse Practitioner Family; Visit Provider Internal Medicine
DX: I50.9 Heart failure, unspecified (principal)
CPT/HCPCS: 93306

== ENCOUNTER → 2023-06-20 10:03 | Outpatient (BNV) | payer MEDICARE, MEDICAID, SELFPAY | PROVIDERS: PCP Nurse Practitioner Family; Visit Provider Internal Medicine Cardiovascular Disease | DX: I36.1 Nonrheumatic tricuspid (valve) insufficiency (principal); I50.9 Heart failure, unspecified | CPT/HCPCS: 93306 ==

== ENCOUNTER 2023-07-06 14:29 | Outpatient (AMB) | payer MEDICARE, MEDICAID, SELFPAY ==
[2023-07-06 14:32] VITALS: BP 140/68; PULSE 63; O2SAT 98; BMI 37.8
--- NOTE | 2023-07-06 14:32 | MHC.OFFVIS ---
Intake Vital Signs 07/06/23 14:32 Height 5 ft 4 in Weight 220 lb 7.396 oz BMI 37.8 BP 140/68 H Blood Pressure Location Lt brachial Position Sitting Pulse 63 Pulse Source Pulse Oximeter Pulse Oximetry (%) 98 Oxygen Delivery Method Room Air Intake Visit Reasons: Obstructive sleep apnea Allergies pregabalin [From Lyrica] Allergy (Severe, Verified 07/06/23 16:50) body rash enalapril [ENALAPRIL] Allergy (Unknown, Verified 07/06/23 16:50) COUGH Penicillins [PENICILLINS] Allergy (Unknown, Verified 07/06/23 16:50) RASH pravastatin [PRAVASTATIN] Allergy (Unknown, Verified 07/06/23 16:50) RASH glipizide Adverse Reaction (Unknown, Verified 07/06/23 16:50) hypoglycemia metformin Adverse Reaction (Unknown, Verified 07/06/23 16:50) abdominal pain simvastatin Adverse Reaction (Unknown, Verified 07/06/23 16:50) stomach upset Medication List - Last Reconciled 07/06/23 by Khai Myrick MD amitriptyline mg PO BID atenolol 50 mg PO DAILY bupropion HCl 150 mg PO DAILY bupropion HCl 300 mg PO DAILY buspirone 30 mg PO ONCE cholecalciferol (vitamin D3) 50 mcg PO DAILY duloxetine mg PO estradiol 0.01%(0.1mg/gram) vaginal furosemide 40 mg PO DAILY hydrocortisone 2.5% (Proctosol HC) 1 appl [place] BID-QID PRN linaclotide (Linzess) 145 mcg PO DAILY lorazepam 0.5 mg PO DAILY PRN pantoprazole 40 mg PO DAILY rosuvastatin (Crestor) 20 mg PO DAILY rosuvastatin 40 mg PO DAILY simethicone (Gas Relief (simethicone)) 80 mg PO TID-QID PRN sitagliptin phosphate (Januvia) 100 mg PO DAILY sucralfate 1 g PO BEDTIME sumatriptan succinate mg PO zolpidem 10 mg PO BEDTIME Do you need a note to return to daycare/school/sports/work: No HPI Obstructive sleep apnea HPI Details This 68 years old female Setswana speaking but also speaks a little inhalation, has come with her daughter, for the 1st time, to discuss about her sleep apnea. This the patient has been moderately obese. She has history of snoring at night, and now that she tries to sleep mostly in the lateral position her snoring is not too bad. She was evaluated for sleep apnea back in 2020. Home-based sleep study showed a mild degree of sleep apnea with total sleep time AHI 10, and predominantly in supine position. At that time patient was evaluated by Dr. Swathi Arias, probably via Tele-Visit and was advised to start on CPAP with auto PAP mode. The patien tried to use CPAP for a while but could not tolerate the fullface mask. Her CPAP machine was taken away because of noncompliance. She is now referred to be evaluated by me to see if she should be back on CPAP therapy. At this time the patient does not complain much. Her daughter say is she snores only once in a while, not every night. The patient's is that she sleeps at least for 6 hours every night. She denies any daytime sleepiness. [facility] Medical History Arthritis Depression Diabetes GERD (gastroesophageal reflux disease) Helicobacter pylori (H. pylori) Hyperlipidemia Hypertension Nonobstructive atherosclerosis of coronary artery INDERJIT (obstructive sleep apnea) PAC (premature atrial contraction) Surgical History H/O tooth extraction History of esophagogastroduodenoscopy (EGD) History of exploratory laparotomy History of hysterectomy History of tubal ligation Hx of colonoscopy Status post phlebectomy Family History Father No problems noted. Mother Cervical cancer Social History Household Members: Children Household Members Other:: son Are you a primary congregational care pastor to a significant other at home: Yes (disabled son) Do you presently have visiting nurse or other home services: No Alcohol intake: never Patient Tobacco Use Status: Never used Tobacco Review of Systems Const All systems reviewed & are unremarkable except as noted in HPI and below Eyes Reports no additional complaints ENT Denies dizziness, Denies nasal congestion and Denies nasal discharge Card Denies chest pain, Denies irregular heart rhythm and Denies leg edema Resp Reports as per HPI GI Reports heartburn (Treated with med) Reports no additional complaints Musc Reports back pain and Reports myalgias Skin/Breast Reports system reviewed and no additional complaints, except as documented Neuro Reports no additional complaints and Denies dizziness Psych Reports anxiety (Controlled with med) Endo Reports no additional complaints Physical Exam Vital Signs: Last Vital Signs Pulse 63 07/06/23 14:32 BP 140/68 H 07/06/23 14:32 Pulse Ox 98 07/06/23 14:32 Oxygen Delivery Method Room Air 07/06/23 14:32 BMI result Body Mass Index 37.8 Const General: healthy appearing (Except for being overweight), comfortable, no acute distress, alert and awake Orientation/consciousness: patient oriented x3 HEENT Head: Yes normal to inspection General nose exam: No nasal polyps present and No nasal discharge present Face and sinus: Yes sinuses nontender Mouth: oropharynx abnormals (Oropharynx is moderately crowded Mallampati class 3) Throat: Yes posterior oropharynx normal Eyes General: appearance normal, both eyes and all related structures Neck Neck: Yes normal visual inspection, Yes no lymphadenopathy, Yes trachea midline, Yes no JVD and Yes other (Neck size 16 in) Thyroid: Thyroid normal Chest Chest palpation & inspection: normal inspection of the chest, normal palpation of entire chest wall and no tenderness Resp Effort & Inspection: normal respiratory effort Auscultation: clear to auscultation bilaterally, no crackles and no wheezes Cardio Palpation: normal PMI Rate: regular rate Rhythm: regular rhythm Heart sounds: no gallops and no murmurs GI Palpation (GI): Soft to palpation, nontender, No hepatosplenomegaly present and no masses Auscultation: normal bowel sounds Back/Spine/Pelvis Thoracic/Lumbar Spine: thoracic and lumbar spine normal to inspection and thoraco-lumbar ROM limited Skin General skin exam: no rashes or lesions noted Neuro General: patient oriented x3 and no focal motor deficits Cranial nerves: Yes CN's II-XII intact bilaterally Extrem General: Yes normal to inspection, Yes no clubbing, cyanosis or edema and Yes no calf tenderness Psych Speech and movement: Normal speech and movement present Results Reviewed Results Reviewed: Home-based sleep study on 12/01/2020 TOTAL SLEEP TIME AHI A 9.9, SUPINE POSITION AHI 12 AND LATERAL POSITION AHI 0 SNORING FOR 35% OF THE SLEEP TIME. C/W MILD INDERJIT, BUT POSITIONAL . MODERATE AMOUNT OF SNORING. Assessment & Plan Assessment & Plan (1) INDERJIT (obstructive sleep apnea): Comment: OBSTRUCTIVE SLEEP APNEA, MILD, MOSTLY POSITIONAL, IN SUPINE POSITION. PATIENT WAS NOT ABLE TO TOLERATE THE CPAP. CONSIDERING THAT HER INDERJIT WAS ONLY MILD, AND POSITIONAL., THE MODE OF TREATMENT WILL BE FOLLOWS: 1- I STRESS THAT SHE MUST LOSE WEIGHT 2 - SHE SHOULD SLEEP IN LATERAL POSITION WHICH SHE IS ALREADY DOING. WILL RECHECK HER IN 3 MONTHS, AND KEEP ON PRODDING HER TO LOSE WEIGHT. Code(s): G47.33 - Obstructive sleep apnea (adult) (pediatric) (2) Snoring: Comment: SHE HAS HAD MODERATE AMOUNT OF SNORING, BUT SHE IS SLEEPING IN LATERAL. POSITIONS SNORING IS MUCH LESS THIS WILL FURTHER. DECREASE IF S CAN START LOSING WEIGHT HE Code(s): R06.83 - Snoring Coding Level of Care Code New Pt Level 4 (41178) Diagnoses INDERJIT (obstructive sleep apnea) G47.33 Snoring R06.83
== END 2023-07-06 15:15 | disposition home or self-care (01) ==
PROVIDERS: Visit Provider Internal Medicine
DX: G47.33 Obstructive sleep apnea (adult) (pediatric) (principal); R06.83 Snoring
CPT/HCPCS: 99204

== ENCOUNTER → 2023-07-06 14:29 | Outpatient (BNVA) | payer MEDICARE, MEDICAID, SELFPAY | PROVIDERS: Visit Provider Internal Medicine | DX: G47.33 Obstructive sleep apnea (adult) (pediatric) (principal); R06.83 Snoring | CPT/HCPCS: 99202 ==

== ENCOUNTER 2023-07-10 09:43 | Outpatient (AMB) | payer MEDICARE, MEDICAID, SELFPAY ==
--- NOTE | 2023-07-10 09:47 | A.OFFVIS_ITS ---
Intake Vital Signs 07/10/23 09:49 Height 5 ft 4 in Weight 216 lb 7.903 oz BMI 37.2 Blood Pressure Location Lt brachial Position Sitting Intake Visit Reasons: 3 month f/u Intake Note: Sis presents in office as a est.patient for a 3month f/u for Chronic idiopathic constipation PT CC: pt reports having some constipation pt denies any other GI Issues Make Up Operator Helper Required: No Accompanied by: Grand Child Allergies pregabalin [From Lyrica] Allergy (Severe, Verified 07/10/23 09:46) body rash enalapril [ENALAPRIL] Allergy (Unknown, Verified 07/10/23 09:46) COUGH Penicillins [PENICILLINS] Allergy (Unknown, Verified 07/10/23 09:46) RASH pravastatin [PRAVASTATIN] Allergy (Unknown, Verified 07/10/23 09:46) RASH glipizide Adverse Reaction (Unknown, Verified 07/10/23 09:46) hypoglycemia metformin Adverse Reaction (Unknown, Verified 07/10/23 09:46) abdominal pain simvastatin Adverse Reaction (Unknown, Verified 07/10/23 09:46) stomach upset HPI 3 month f/u HPI Details LAST VISIT Helicobacter pylori (H. pylori) Pathology results showed eradication of H pylori bacteria. GERD (gastroesophageal reflux disease) Upper endoscopy showed no esophagitis or Irizarry's. Mild gastric inflammation seen. No H pylori found on pathology. Continue avoiding dietary triggers in late night snacking. Continue pantoprazole in the morning and sucralfate at bedtime. Staying upright for minimum 3 hours after meals discussed with patient Postprandial abdominal bloating Occasional postprandial abdominal bloating and cramping. Discussed with patient low FODMAP diet. List of food recommended as well as list of food to avoid given to patient. Simethicone ordered. Chronic idiopathic constipation Continue Linzess daily. Patient was encouraged to increase fluid intake and activity to promote better bowel motility. I will see her in 3 months, sooner on as needed basis. Patient is agreeable to this plan and verbalizes understanding of instructions. She was given the opportunity to ask questions and all questions answered. ? Thank you for allowing me to participate in her care Plan Medications Refilled linaclotide (Linzess) 145 mcg PO DAILY 90 caps 2RF simethicone (Gas Relief (simethicone)) 80 mg PO TID-QID PRN 120 tabs 2RF abdominal distention Discontinued metronidazole Discontinued Reason: Patient Completed Course 1,000 mg (2 x 500 mg) PO BID 56 tabs 0RF A04.8 doxycycline hyclate Discontinued Reason: Patient Completed Course 100 mg PO BID 14 days 28 caps 0RF bismuth subsalicylate Discontinued Reason: Patient Completed Course 2 tabs PO QID 14 days 112 tabs 0RF A04.8 TODAY'S VISIT Patient is here today for follow-up. Patient is accompanied by her granddaughter who will be translating for her per patient request. Patient reports that she has been doing better. Able to move her bowels, however sometimes she continues to be constipated. Patient is taking pantoprazole every morning and states that her symptoms of acid reflux are suppressed. Patient is also taking sucralfate at night time and her symptoms of acid reflux got much better. Patient states that she is taking Linzess and reports that her bowels are moving well. Patient denies any melena, hematochezia, unintentional weight loss or ribbon like stools. Patient denies any dyspepsia, dysphagia or odynophagia. Patient denies any other GI concerning symptoms. [facility] Medical History Arthritis Depression Diabetes GERD (gastroesophageal reflux disease) Helicobacter pylori (H. pylori) Hyperlipidemia Hypertension Nonobstructive atherosclerosis of coronary artery INDERJIT (obstructive sleep apnea) PAC (premature atrial contraction) Surgical History H/O tooth extraction History of esophagogastroduodenoscopy (EGD) History of exploratory laparotomy History of hysterectomy History of tubal ligation Hx of colonoscopy Status post phlebectomy Family History Father No problems noted. Mother Cervical cancer Social History Household Members: Children Household Members Other:: son Are you a primary acute care occupational therapist to a significant other at home: Yes (disabled son) Do you presently have visiting nurse or other home services: No Alcohol intake: never Patient Tobacco Use Status: Never used Tobacco Review of Systems Const Denies weight gain and Denies weight loss ENT Reports no additional complaints, Denies dysphagia and Denies odynophagia Card Reports no additional complaints Resp Reports no additional complaints GI Denies abdominal pain, Denies belching, Denies melena, Denies bloating, Reports constipation, Denies dysphagia, Denies excessive flatus, Denies dyspepsia, Reports heartburn (Occasional), Denies diarrhea, Denies loose stools, Denies nausea, Denies odynophagia and Denies vomiting Reports no additional complaints Musc Reports no additional complaints Neuro Reports no additional complaints Psych Reports no additional complaints Endo Reports no additional complaints Physical Exam Vital Signs: BMI result Body Mass Index 37.2 Const General: healthy appearing, no acute distress and well developed Nutritional Appearance: obese Orientation/consciousness: patient oriented x3 HEENT Head: Yes normal to inspection, Yes normocephalic and Yes atraumatic Face and sinus: Yes normal facial exam Mouth: Normal oral and palatal mucosa present Throat: Yes posterior oropharynx normal, Yes tonsils normal and Yes uvula midline Eyes General: appearance normal, both eyes and all related structures Neck Neck: Yes normal visual inspection, Yes full ROM and Yes trachea midline Thyroid: Thyroid normal Resp Effort & Inspection: normal respiratory effort, able to speak in complete sentences, no tracheal deviation and symmetric chest movement Auscultation: clear to auscultation bilaterally Cardio Rate: regular rate Heart sounds: S1 normal heart sound present and S2 normal heart sound present GI Inspection: Yes normal to inspection, No distended and Yes obesity Palpation (GI): Soft to palpation, not firm, nontender and No hepatosplenomegaly present Auscultation: normal bowel sounds General: Yes no CVA tenderness Back/Spine/Pelvis Back: no CVA tenderness Skin General skin exam: elasticity normal, turgor normal and dry skin Neuro General: patient oriented x3 Psych Appearance: grossly normal Mental Status: mental status grossly normal Speech and movement: Normal speech and movement present Assessment & Plan Assessment & Plan (1) GERD (gastroesophageal reflux disease): Code(s): K21.9 - Gastro-esophageal reflux disease without esophagitis Qualifiers: Esophagitis presence: esophagitis presence not specified Qualified Code(s): K21.9 - Gastro-esophageal reflux disease without esophagitis Plan: Continue pantoprazole in the morning half an hour before breakfast and sucralfate at bedtime. Discussed with patient avoiding dietary triggers in late night snacking. Staying upright for minimum 3 hours after meals discussed with patient. (2) Postprandial abdominal bloating: Code(s): R14.0 - Abdominal distension (gaseous) Plan: Continue taking simethicone on as needed basis. Patient was encouraged to follow low FODMAP diet. Eat smaller meals and more often. (3) Chronic idiopathic constipation: Code(s): K59.04 - Chronic idiopathic constipation Plan: Continue taking Linzess every day. Patient was encouraged to increase fluid intake and activity to promote better bowel motility. I will see patient in 6 months, sooner on as needed basis. Patient is agreeable to this plan and verbalizes understanding of instructions. She was given the opportunity to ask questions and all questions answered. Thank you for allowing me to participate in her care Coding Level of Care Code Est Pt Level 3 (62851) Diagnoses GERD (gastroesophageal reflux disease) K21.9 Esophagitis presence: esophagitis presence not specified Postprandial abdominal bloating R14.0 Chronic idiopathic constipation K59.04 Time Spent (min) 30 Comment 20 minutes spent with patient and additional 10 minutes spent reviewing her records
[2023-07-10 09:49] VITALS: BMI 37.2
== END 2023-07-10 10:37 | disposition home or self-care (01) ==
PROVIDERS: Visit Provider Nurse Practitioner Family
DX: K21.9 Gastro-esophageal reflux disease without esophagitis (principal); R14.0 Abdominal distension (gaseous); K59.04 Chronic idiopathic constipation
CPT/HCPCS: 99213

== ENCOUNTER → 2023-07-10 09:43 | Outpatient (BNVA) | payer MEDICARE, MEDICAID, SELFPAY | PROVIDERS: Visit Provider Nurse Practitioner Family | DX: K59.04 Chronic idiopathic constipation (principal); K21.9 Gastro-esophageal reflux disease without esophagitis; R14.0 Abdominal distension (gaseous) | CPT/HCPCS: 99212 ==

== ENCOUNTER 2024-01-08 10:21 | Outpatient (AMB) | payer MEDICARE, MEDICAID, SELFPAY ==
--- NOTE | 2024-01-08 10:30 | A.OFFVIS_ITS ---
Intake Vital Signs 01/08/24 10:37 Height 5 ft 3 in Weight 189 lb BMI 33.5 BP 144/76 H Blood Pressure Location Lt brachial Position Sitting Pulse 67 Intake Visit Reasons: Follow up 6 months Intake Note: Patient follow up for constipation. Patient cc: abdominal pain and bloating, a lot of discomfort on her rectum, middle abdominal pain and constipation. Impact Retail Service Merchandiser Required: No Accompanied by: Friend Allergies pregabalin [From Lyrica] Allergy (Severe, Verified 07/10/23 09:46) body rash enalapril [ENALAPRIL] Allergy (Unknown, Verified 07/10/23 09:46) COUGH Penicillins [PENICILLINS] Allergy (Unknown, Verified 07/10/23 09:46) RASH pravastatin [PRAVASTATIN] Allergy (Unknown, Verified 07/10/23 09:46) RASH glipizide Adverse Reaction (Unknown, Verified 07/10/23 09:46) hypoglycemia metformin Adverse Reaction (Unknown, Verified 07/10/23 09:46) abdominal pain simvastatin Adverse Reaction (Unknown, Verified 07/10/23 09:46) stomach upset HPI Follow up 6 months HPI Details LAST VISIT: GERD (gastroesophageal reflux disease) Continue pantoprazole in the morning half an hour before breakfast and sucralfate at bedtime. Discussed with patient avoiding dietary triggers in late night snacking. Staying upright for minimum 3 hours after meals discussed with patient. Postprandial abdominal bloating Continue taking simethicone on as needed basis. Patient was encouraged to follow low FODMAP diet. Eat smaller meals and more often. Chronic idiopathic constipation Continue taking Linzess every day. Patient was encouraged to increase fluid intake and activity to promote better bowel motility. I will see patient in 6 months, sooner on as needed basis. Patient is agreeable to this plan and verbalizes understanding of instructions. She was given the opportunity to ask questions and all questions answered. ? TODAY'S VISIT Patient is here today for follow-up. Patient reports that she has been feeling better, able to move her bowels better with Linzess. After taking Linzess in the morning she usually has 3 bowel movements and feels like she empties her bowels completely. Occasionally patient experiences excess gas. Occasional postprandial abdominal bloating, however she states that bloating has decreased significantly. Patient does report burning in her rectum when she has a bowel movement. Had use Proctosol in the past with results. Her symptoms of acid reflux are suppressed for the most part with pantoprazole. Occasional epigastric pain postprandially. Patient reports that she has changed her diet. Reports that she is trying to eat healthier. Eating more fruits and vegetables. [facility] Medical History Arthritis Depression Diabetes GERD (gastroesophageal reflux disease) Helicobacter pylori (H. pylori) Hyperlipidemia Hypertension Nonobstructive atherosclerosis of coronary artery INDERJIT (obstructive sleep apnea) PAC (premature atrial contraction) Surgical History H/O tooth extraction Hx of colonoscopy History of esophagogastroduodenoscopy (EGD) History of hysterectomy Status post phlebectomy History of exploratory laparotomy History of tubal ligation Family History Father No problems noted. Mother Cervical cancer Social History Household Members: Children Household Members Other:: son Are you a primary career specialist to a significant other at home: Yes (disabled son) Do you presently have visiting nurse or other home services: No Alcohol intake: never Patient Tobacco Use Status: Never used Tobacco Physical Exam Vital Signs: Last Vital Signs Pulse 67 01/08/24 10:37 BP 144/76 H 01/08/24 10:37 BMI result Body Mass Index 33.5 Const General: healthy appearing, no acute distress and well developed Nutritional Appearance: obese Orientation/consciousness: patient oriented x3 Resp Effort & Inspection: normal respiratory effort, able to speak in complete sentences, no tracheal deviation and symmetric chest movement Auscultation: clear to auscultation bilaterally Cardio Rate: regular rate GI Inspection: Yes normal to inspection, No distended and Yes obesity Palpation (GI): Soft to palpation, not firm, nontender and No hepatosplenomegaly present Auscultation: normal bowel sounds General: Yes no CVA tenderness Back/Spine/Pelvis Back: no CVA tenderness Skin General skin exam: elasticity normal, turgor normal and dry skin Neuro General: patient oriented x3 Psych Appearance: grossly normal Mental Status: mental status grossly normal Assessment & Plan Assessment & Plan (1) GERD (gastroesophageal reflux disease): Code(s): K21.9 - Gastro-esophageal reflux disease without esophagitis Qualifiers: Esophagitis presence: esophagitis presence not specified Qualified Code(s): K21.9 - Gastro-esophageal reflux disease without esophagitis (2) Postprandial abdominal bloating: Code(s): R14.0 - Abdominal distension (gaseous) (3) Chronic idiopathic constipation: Code(s): K59.04 - Chronic idiopathic constipation Plan Patient will continue taking pantoprazole twice a day. Patient no longer is taking sucralfate at bedtime. Patient denies eating late at night. Patient states that she changed her diet, eating healthier. Continue low FODMAP diet. List of food recommended as well as list of food to avoid given to patient. Patient will continue taking Linzess. Patient was encouraged to increase fluid intake and activity to promote better bowel motility. Patient will use Proctosol for hemorrhoids. Recommended Sitz baths with Epsom salts. I will see patient in 4 months, sooner on as needed basis. Patient is agreeable to this plan and verbalizes understanding of instructions. She was given the opportunity to ask questions and all questions answered Thank you for allowing me to participate in her care Medications: Refilled hydrocortisone 2.5% (Proctosol HC) 1 appl [place] BID-QID PRN 30 grams 2RF hemorrhoids K64.9 - Unspecified hemorrhoids simethicone (Gas Relief (simethicone)) 80 mg PO TID-QID PRN 120 tabs 2RF abdominal distention pantoprazole 40 mg PO BID 60 tabs 3RF K21.9 - Gastro-esophageal reflux disease without esophagitis Discontinued sucralfate Discontinued Reason: Doctor's Order 1 g PO BEDTIME 90 tabs 0RF R19.7 - Diarrhea, unspecified Coding Level of Care Code Est Pt Level 3 (54642) Diagnoses Gastroesophageal reflux disease, unspecified whether esophagitis present K21.9 Esophagitis presence: esophagitis presence not specified Postprandial abdominal bloating R14.0 Chronic idiopathic constipation K59.04 Time Spent (min) 25 Comment 15 minutes spent with patient and additional 10 minutes spent reviewing her records
[2024-01-08 10:37] VITALS: BP 144/76; PULSE 67; BMI 33.5
== END 2024-01-08 11:54 | disposition home or self-care (01) ==
PROVIDERS: Visit Provider Nurse Practitioner Family
DX: K21.9 Gastro-esophageal reflux disease without esophagitis (principal); R14.0 Abdominal distension (gaseous); K59.04 Chronic idiopathic constipation
CPT/HCPCS: 99213

== ENCOUNTER → 2024-01-08 10:21 | Outpatient (BNVA) | payer MEDICARE, MEDICAID, SELFPAY | PROVIDERS: Visit Provider Nurse Practitioner Family | DX: K21.9 Gastro-esophageal reflux disease without esophagitis (principal); K59.04 Chronic idiopathic constipation; R14.0 Abdominal distension (gaseous) | CPT/HCPCS: 99212 ==

== ENCOUNTER 2024-03-06 08:23 | Outpatient (AMB) | payer MEDICARE, MEDICAID, SELFPAY ==
--- NOTE | 2024-03-06 08:26 | MHC.OFFVIS ---
Vital Signs 03/06/24 08:29 Height 5 ft 3 in Weight 194 lb BMI 34.4 BP 133/61 Blood Pressure Location Lt brachial Position Sitting Pulse 59 Intake Visit Reasons: abdominal pain Intake Note: Patient follow up for abdominal pain. Patient cc: painful hemorrhoids, abdominal pain with bloating, acid reflex with burning sensation. Refrigeration Brazer/Solderer Required: Yes Refrigeration Brazer/Solderer Name: [facility] Interpeter Accompanied by: Self / Same As Patient Allergies pregabalin [From Lyrica] Allergy (Severe, Verified 03/06/24 08:26) body rash enalapril [ENALAPRIL] Allergy (Unknown, Verified 03/06/24 08:26) COUGH Penicillins [PENICILLINS] Allergy (Unknown, Verified 03/06/24 08:26) RASH pravastatin [PRAVASTATIN] Allergy (Unknown, Verified 03/06/24 08:26) RASH glipizide Adverse Reaction (Unknown, Verified 03/06/24 08:26) hypoglycemia metformin Adverse Reaction (Unknown, Verified 03/06/24 08:26) abdominal pain simvastatin Adverse Reaction (Unknown, Verified 03/06/24 08:26) stomach upset HPI HPI abdominal pain: Details: LAST VISIT: GERD (gastroesophageal reflux disease) Postprandial abdominal bloating Chronic idiopathic constipation Plan Patient will continue taking pantoprazole twice a day. Patient no longer is taking sucralfate at bedtime. Patient denies eating late at night. Patient states that she changed her diet, eating healthier. Continue low FODMAP diet. List of food recommended as well as list of food to avoid given to patient. Patient will continue taking Linzess. Patient was encouraged to increase fluid intake and activity to promote better bowel motility. Patient will use Proctosol for hemorrhoids. Recommended Sitz baths with Epsom salts. I will see patient in 4 months, sooner on as needed basis. Patient is agreeable to this plan and verbalizes understanding of instructions. She was given the opportunity to ask questions and all questions answered ? Thank you for allowing me to participate in her care Medications Refilled hydrocortisone 2.5% (Proctosol HC) 1 appl [place] BID-QID PRN 30 grams 2RF hemorrhoids K64.9 simethicone (Gas Relief (simethicone)) 80 mg PO TID-QID PRN 120 tabs 2RF abdominal distention pantoprazole 40 mg PO BID 60 tabs 3RF K21.9 Discontinued sucralfate Discontinued Reason: Doctor's Order 1 g PO BEDTIME 90 tabs 0RF R19.7 TODAY'S VISIT Patient is here today for follow-up. Patient reports that she continues to have abdominal bloating. Patient states that she was taking Linzess, however felt likely was causing her to go to the bathroom all the time and cramping. Patient denies melena, hematochezia, unintentional weight loss or ribbon like stools. Patient denies dyspepsia, dysphagia or odynophagia. Patient reports that her acid reflux is under control. Patient states that she takes pantoprazole twice a day. Avoiding dietary triggers. Patient is not eating late at night. [facility] Medical History Arthritis Depression Diabetes GERD (gastroesophageal reflux disease) Helicobacter pylori (H. pylori) Hyperlipidemia Hypertension Nonobstructive atherosclerosis of coronary artery INDERJIT (obstructive sleep apnea) PAC (premature atrial contraction) Surgical History H/O tooth extraction Hx of colonoscopy History of esophagogastroduodenoscopy (EGD) History of hysterectomy Status post phlebectomy History of exploratory laparotomy History of tubal ligation Family History Father No problems noted. Mother Cervical cancer Social History Household Members: Children Household Members Other:: son Are you a primary landcare officer to a significant other at home: Yes (disabled son) Do you presently have visiting nurse or other home services: No Alcohol intake: never Patient Tobacco Use Status: Never used Tobacco Review of Systems Const Denies weight gain and Denies weight loss ENT Reports no additional complaints, Denies dysphagia and Denies odynophagia Card Reports no additional complaints Resp Reports no additional complaints GI Denies abdominal pain, Denies belching, Denies melena, Reports bloating, Denies change in bowel habits, Denies dysphagia, Denies excessive flatus, Denies dyspepsia, Reports heartburn, Denies diarrhea, Reports loose stools, Denies nausea, Denies odynophagia and Denies vomiting Reports no additional complaints Musc Reports no additional complaints Neuro Reports no additional complaints Psych Reports no additional complaints Endo Reports no additional complaints Physical Exam Vital Signs: Last Vital Signs Pulse 59 03/06/24 08:29 BP 133/61 03/06/24 08:29 BMI result Body Mass Index 0.3 Const General: healthy appearing, no acute distress and well developed Nutritional Appearance: obese Orientation/consciousness: patient oriented x3 Resp Effort & Inspection: normal respiratory effort, able to speak in complete sentences, no tracheal deviation and symmetric chest movement Auscultation: clear to auscultation bilaterally Cardio Rate: regular rate GI Inspection: Yes normal to inspection, No distended and Yes obesity Palpation (GI): Soft to palpation, not firm, nontender and No hepatosplenomegaly present Auscultation: normal bowel sounds General: Yes no CVA tenderness Back/Spine/Pelvis Back: no CVA tenderness Skin General skin exam: elasticity normal, turgor normal and dry skin Neuro General: patient oriented x3 Psych Appearance: grossly normal Mental Status: mental status grossly normal Assessment & Plan Assessment & Plan (1) GERD (gastroesophageal reflux disease): Code(s): K21.9 - Gastro-esophageal reflux disease without esophagitis Qualifiers: Esophagitis presence: esophagitis presence not specified Qualified Code(s): K21.9 - Gastro-esophageal reflux disease without esophagitis (2) Postprandial abdominal bloating: Code(s): R14.0 - Abdominal distension (gaseous) (3) Chronic idiopathic constipation: Code(s): K59.04 - Chronic idiopathic constipation (4) Postprandial diarrhea: Code(s): K52.9 - Noninfective gastroenteritis and colitis, unspecified Plan Patient will encouraged to increase fiber in her diet. Low FODMAP diet discussed with her as well. Patient will start taking senna 2 tablets and 2 tablets of Colace. Will hold off on taking Linzess right now. Continue PPI therapy as ordered. Avoid dietary triggers and late night snacking. Staying upright for minimal 3 hours after meals discussed with patient. Patient will return to the office in 3 weeks, sooner on as needed basis. She is agreeable to this plan and verbalizes understanding of instructions. She was given the opportunity to ask questions and all questions answered. Thank you for allowing me to participate in her care Medications: New docusate sodium 200 mg (2 x 100 mg) PO BEDTIME 180 caps 3RF K59.00 - Constipation, unspecified sennosides (Natural Senna Laxative) 17.2 mg (2 x 8.6 mg) PO BEDTIME 60 tabs 3RF constipation K59.00 - Constipation, unspecified On Hold linaclotide (Linzess) Hold Comment: Doctor's Order 145 mcg PO DAILY 90 caps 2RF
[2024-03-06 08:29] VITALS: BP 133/61; PULSE 59; BMI 34.4
== END 2024-03-06 08:54 | disposition home or self-care (01) ==
PROVIDERS: Visit Provider Nurse Practitioner Family
DX: K21.9 Gastro-esophageal reflux disease without esophagitis (principal); R14.0 Abdominal distension (gaseous); K59.04 Chronic idiopathic constipation; K52.9 Noninfective gastroenteritis and colitis, unspecified
CPT/HCPCS: 99213

== ENCOUNTER → 2024-03-06 08:23 | Outpatient (BNVA) | payer MEDICARE, MEDICAID, SELFPAY | PROVIDERS: Visit Provider Nurse Practitioner Family | DX: K21.9 Gastro-esophageal reflux disease without esophagitis (principal); K59.04 Chronic idiopathic constipation; K52.9 Noninfective gastroenteritis and colitis, unspecified; R14.0 Abdominal distension (gaseous) | CPT/HCPCS: 99212 ==

== ENCOUNTER 2024-03-27 10:06 | Outpatient (AMB) | payer MEDICARE, MEDICAID, SELFPAY ==
--- NOTE | 2024-03-27 10:08 | A.OFFVIS_ITS ---
Vital Signs 03/27/24 10:16 Height 5 ft 3 in Weight 196 lb BMI 34.7 BP 119/59 L Blood Pressure Location Lt brachial Position Sitting Pulse 56 Intake Visit Reasons: 3 week follow up Intake Note: Patient is seen in office for 3 weeks follow up visit, following chronic idiopathic constipation, Pt c/o: is taking the meds prescribe, has continued pain in the left side of the abdomen, would like to have imaging done, having a BM every other day, admits to acid reflux, straining, no blood in stool or other concerns Economic Development Manager Required: No Accompanied by: Grand Child Allergies pregabalin [From Lyrica] Allergy (Severe, Verified 03/27/24 10:21) body rash enalapril [ENALAPRIL] Allergy (Unknown, Verified 03/27/24 10:21) COUGH Penicillins [PENICILLINS] Allergy (Unknown, Verified 03/27/24 10:21) RASH pravastatin [PRAVASTATIN] Allergy (Unknown, Verified 03/27/24 10:21) RASH glipizide Adverse Reaction (Unknown, Verified 03/27/24 10:21) hypoglycemia metformin Adverse Reaction (Unknown, Verified 03/27/24 10:21) abdominal pain simvastatin Adverse Reaction (Unknown, Verified 03/27/24 10:21) stomach upset HPI HPI 3 week follow up: Details: LAST VISIT: GERD (gastroesophageal reflux disease) Postprandial abdominal bloating Chronic idiopathic constipation Postprandial diarrhea Plan Patient will encouraged to increase fiber in her diet. Low FODMAP diet discussed with her as well. Patient will start taking senna 2 tablets and 2 tablets of Colace. Will hold off on taking Linzess right now. Continue PPI therapy as ordered. Avoid dietary triggers and late night snacking. Staying upright for minimal 3 hours after meals discussed with patient. Patient will return to the office in 3 weeks, sooner on as needed basis. She is agreeable to this plan and verbalizes understanding of instructions. She was given the opportunity to ask questions and all questions answered. ? Thank you for allowing me to participate in her care Medications New docusate sodium 200 mg (2 x 100 mg) PO BEDTIME 180 caps 3RF K59.00 sennosides (Natural Senna Laxative) 17.2 mg (2 x 8.6 mg) PO BEDTIME 60 tabs 3RF constipation K59.00 On Hold linaclotide (Linzess) Hold Comment: Doctor's Order 145 mcg PO DAILY 90 caps 2RF TODAY'S VISIT: Patient is here today for follow-up. Patient reports that since the last time I have seen her she has been taking senna 2 tabs and docusate sodium 2 tabs and is able to move her bowels better. However patient does admit that she does not always empty her bowels completely. Patient reports pain specially with bowel movements in the left lower quadrant and occasionally in left upper quadrant. Patient denies any nausea or vomiting. Continues to have acid reflux. Feels like the pantoprazole is not working for her. Patient reports occasional dyspepsia without dysphagia or odynophagia. Patient denies melena, hematochezia, unintentional weight loss or ribbon like stools. [facility] Medical History Helicobacter pylori (H. pylori) Hyperlipidemia Hypertension Arthritis Diabetes Depression GERD (gastroesophageal reflux disease) INDERJIT (obstructive sleep apnea) Nonobstructive atherosclerosis of coronary artery PAC (premature atrial contraction) Surgical History H/O tooth extraction Hx of colonoscopy History of esophagogastroduodenoscopy (EGD) History of hysterectomy Status post phlebectomy History of exploratory laparotomy History of tubal ligation Family History Father No problems noted. Mother Cervical cancer Social History Household Members: Children Household Members Other:: son Are you a primary child care supervisor to a significant other at home: Yes (disabled son) Do you presently have visiting nurse or other home services: No Alcohol intake: never Patient Tobacco Use Status: Never used Tobacco Review of Systems Const Denies weight gain and Denies weight loss ENT Reports no additional complaints, Denies dysphagia and Denies odynophagia Card Reports no additional complaints Resp Reports no additional complaints GI Reports abdominal pain (LUQ, LLQ), Denies belching, Denies melena, Reports bloating, Reports constipation, Denies dysphagia, Denies excessive flatus, Denies dyspepsia, Reports heartburn, Denies diarrhea, Denies loose stools, Denies nausea, Denies odynophagia and Denies vomiting Reports no additional complaints Musc Reports no additional complaints Neuro Reports no additional complaints Psych Reports no additional complaints Endo Reports no additional complaints Physical Exam Vital Signs: Last Vital Signs Pulse 56 03/27/24 10:16 BP 119/59 L 03/27/24 10:16 BMI result Body Mass Index 34.7 Const General: healthy appearing and no acute distress Nutritional Appearance: obese Orientation/consciousness: patient oriented x3 Resp Effort & Inspection: normal respiratory effort, able to speak in complete sentences, no tracheal deviation and symmetric chest movement Auscultation: clear to auscultation bilaterally Cardio Rate: regular rate GI Inspection: Yes normal to inspection, No distended and Yes obesity Palpation (GI): Soft to palpation, not firm, nontender and No hepatosplenomegaly present Auscultation: normal bowel sounds General: Yes no CVA tenderness Back/Spine/Pelvis Back: no CVA tenderness Skin General skin exam: elasticity normal, turgor normal and dry skin Neuro General: patient oriented x3 Psych Appearance: grossly normal Mental Status: mental status grossly normal Assessment & Plan Assessment & Plan (1) GERD (gastroesophageal reflux disease): Code(s): K21.9 - Gastro-esophageal reflux disease without esophagitis Qualifiers: Esophagitis presence: esophagitis presence not specified Qualified Code(s): K21.9 - Gastro-esophageal reflux disease without esophagitis (2) Postprandial abdominal bloating: Code(s): R14.0 - Abdominal distension (gaseous) (3) Chronic idiopathic constipation: Code(s): K59.04 - Chronic idiopathic constipation (4) Postprandial diarrhea: Code(s): K52.9 - Noninfective gastroenteritis and colitis, unspecified (5) LLQ abdominal pain: Code(s): R10.32 - Left lower quadrant pain Plan Patient continues to have a left lower quadrant pain, history of sigmoid resection due to diverticulitis. History of diverticulosis. Patient will be sent for CT scan to rule out diverticulitis. Patient denies any fever or chills. Denies any diarrhea. Continues to be constipated. Hold Linzess. Take Dulcolax 2 tablets with Colace in the evening. Patient will stop taking pantoprazole and start to take Nexium in the morning and famotidine at bedtime. Avoid dietary triggers and late night snacking. Staying upright for minimum 3 hours after meals discussed with patient. Patient will return in 2 months, sooner on as needed basis. She is agreeable to this plan and verbalizes understanding of instructions. She was given the opportunity to ask questions and all questions answered. Thank you for allowing me to participate in her care Orders: Orders CT abdomen pelvis w IV con Today R10.12 - Left upper quadrant pain, R10.9 - Unspecified abdominal pain, Z90.49 - Acquired absence of other specified parts of digestive tract Medications: New famotidine 40 mg PO BEDTIME 30 tabs 3RF K21.9 - Gastro-esophageal reflux disease without esophagitis bisacodyl (Dulcolax (bisacodyl)) 10 mg (2 x 5 mg) PO BEDTIME 60 tabs 4RF esomeprazole magnesium (Nexium) 40 mg PO DAILY 30 caps 5RF K21.9 - Gastro- esophageal reflux disease without esophagitis Discontinued pantoprazole Discontinued Reason: Doctor's Order 40 mg PO BID 60 tabs 3RF K21.9 - Gastro-esophageal reflux disease without esophagitis sennosides (Natural Senna Laxative) Discontinued Reason: Doctor's Order 17.2 mg (2 x 8.6 mg) PO BEDTIME 60 tabs 3RF constipation K59.00 - Constipation, unspecified Coding Level of Care Code Est Pt Level 4 (97827) Diagnoses Gastroesophageal reflux disease, unspecified whether esophagitis present K21.9 Esophagitis presence: esophagitis presence not specified Postprandial abdominal bloating R14.0 Chronic idiopathic constipation K59.04 Postprandial diarrhea K52.9 LLQ abdominal pain R10.32 Time Spent (min) 35 Comment 20 minutes spent with patient and additional 15 minutes spent reviewing her records
[2024-03-27 10:16] VITALS: BP 119/59; PULSE 56; BMI 34.7
== END 2024-03-27 10:51 | disposition home or self-care (01) ==
PROVIDERS: Visit Provider Nurse Practitioner Family
DX: K21.9 Gastro-esophageal reflux disease without esophagitis (principal); R14.0 Abdominal distension (gaseous); K59.04 Chronic idiopathic constipation; K52.9 Noninfective gastroenteritis and colitis, unspecified; R10.32 Left lower quadrant pain
CPT/HCPCS: 99214

== ENCOUNTER → 2024-03-27 10:06 | Outpatient (BNVA) | payer MEDICARE, MEDICAID, SELFPAY | PROVIDERS: Visit Provider Nurse Practitioner Family | DX: K21.9 Gastro-esophageal reflux disease without esophagitis (principal); K59.04 Chronic idiopathic constipation; K52.9 Noninfective gastroenteritis and colitis, unspecified; R14.0 Abdominal distension (gaseous); R10.32 Left lower quadrant pain | CPT/HCPCS: 99212 ==

== ENCOUNTER 2024-04-03 09:33 | Outpatient (REF) | payer MEDICARE, MEDICAID, SELFPAY ==
[2024-04-03 11:16] LABS: Blood Urea Nitrogen 11 mg/dL (9-16); Estimated Glomerular Filt Rate > 60
== END 2024-04-03 09:34 | disposition home or self-care (01) ==
LOC: HO.LAB 09:33
PROVIDERS: PCP Nurse Practitioner Family; Visit Provider Nurse Practitioner Family
DX: R10.11 Right upper quadrant pain (principal)
CPT/HCPCS: 36415; 82565; 84520

== ENCOUNTER 2024-04-04 11:24 | Outpatient (REF) | payer MEDICARE, MEDICAID, SELFPAY ==
--- NOTE | ~2024-04-04 | CT_ITS ---
EXAMINATION: CT ABDOMEN AND PELVIS WITH CONTRAST CLINICAL INFORMATION: Left upper quadrant pain. COMPARISON: CT abdomen and pelvis dated 01/09/2023. TECHNIQUE: Multidetector volumetric images were obtained from the superior aspect of the liver through the pubic symphysis following administration 85 mL of Omnipaque 350 intravenous contrast. Sagittal and coronal reformatted images were obtained on the technologist's workstation. Oral contrast: No This CT examination was performed using dose optimization techniques as appropriate, variously including the following: *Automated exposure control *Adjustment of mA and/or kV according to patient size (this includes techniques or standardized protocols for targeted exams where dose is matched to indication/reason for exam; i.e. extremities or head) *Use of iterative reconstruction technique DLP: 514 mGy-cm FINDINGS: LUNG BASES: There is mild medial left base pleural and parenchymal scarring. There are mild coronary artery atherosclerotic calcifications. LIVER, GALLBLADDER, AND BILIARY TREE: The liver is normal in size, shape, and attenuation. No focal hepatic lesion or biliary ductal dilatation is present. The gallbladder is unremarkable with no evidence of radiopaque gallstones, gallbladder wall thickening, or obvious pericholecystic inflammatory changes. PANCREAS: Unremarkable. SPLEEN: Unremarkable. ADRENAL GLANDS: Unremarkable. KIDNEYS AND URETERS: The kidneys are normal in size, shape, and attenuation. No hydronephrosis, hydroureter, or calculi seen. No perinephric stranding. BLADDER: Unremarkable. GASTROINTESTINAL TRACT: There is a patent rectosigmoid anastomotic staple line. There is a moderate stool burden, suggesting possible constipation. There is mild diverticulosis, without acute diverticulitis. No obstruction, free intraperitoneal air or abscess is seen. No focal bowel wall thickening is seen. The vermiform appendix appears normal. ABDOMINAL WALL: There is a small fat-containing umbilical hernia defect. LYMPH NODES: Normal. VASCULAR: There is mild aortoiliac atherosclerotic calcification. No abdominal aortic aneurysm or dissection is seen. PELVIC VISCERA: Surgically absent. No pelvic mass, free fluid or lymphadenopathy is seen. OSSEOUS STRUCTURES: There is multi-level thoracolumbar degenerative disc disease and endplate arthropathy. Endplate arthropathy is particularly severe L1-L2, where it is marked. There is marked disc space narrowing noted at L5-S1. No acute or aggressive osseous finding is noted. CT/CT abdomen pelvis w IV con IMPRESSION: 1. A patent rectosigmoid anastomotic staple line is seen. There is a moderate colonic stool burden, suggesting possible constipation. No obstruction, free intraperitoneal air or abscess is seen. The vermiform appendix appears normal. 2. There is no urinary calculus or obstruction. 3. There is no abdominopelvic mass, free fluid lymphadenopathy. 4. There are degenerative changes of the spine, with degenerative disc disease most pronounced at L5-S1. No aggressive osseous lesion is seen. Fleischner guidelines were followed.
[2024-04-04] MEDS: iohexoL 350 MG/ML 100 ML INFUS..BTL 85 ML IV (14:47)
[2024-04-04] MEDS: Barium Sulfate Oral (Berry) 450 ML ORAL.SUSP 900 ML PO (14:48)
== END 2024-04-04 11:25 | disposition home or self-care (01) ==
LOC: HO.CT 11:24
PROVIDERS: PCP Nurse Practitioner Family; Visit Provider Nurse Practitioner Family
DX: R10.12 Left upper quadrant pain (principal); Z90.49 Acquired absence of other specified parts of digestive tract
CPT/HCPCS: 74177; Q9967

== ENCOUNTER 2024-05-08 10:21 | Outpatient (AMB) | payer MEDICARE, MEDICAID, SELFPAY ==
--- NOTE | 2024-05-08 10:23 | A.OFFVIS_ITS ---
Vital Signs 05/08/24 10:36 Height 5 ft 3 in Weight 194 lb 0.108 oz BMI 34.4 BP 120/66 Blood Pressure Location Lt brachial Position Sitting Pulse 68 Pulse Source Pulse Oximeter Pulse Oximetry (%) 97 Oxygen Delivery Method Room Air Intake Visit Reasons: Follow up 4 months Intake Note: Sis presents in office today for a scheduled 4 mos FUV. CC; Pt was Rx'd proctosol and simethicone at their last visit. Pt states that the meds have been working as intended and her sx have improved. Polisher Aluminum Required: No Allergies pregabalin [From Lyrica] Allergy (Severe, Verified 05/08/24 10:28) body rash enalapril [ENALAPRIL] Allergy (Unknown, Verified 05/08/24 10:28) COUGH Penicillins [PENICILLINS] Allergy (Unknown, Verified 05/08/24 10:28) RASH pravastatin [PRAVASTATIN] Allergy (Unknown, Verified 05/08/24 10:28) RASH glipizide Adverse Reaction (Unknown, Verified 05/08/24 10:28) hypoglycemia metformin Adverse Reaction (Unknown, Verified 05/08/24 10:28) abdominal pain simvastatin Adverse Reaction (Unknown, Verified 05/08/24 10:28) stomach upset HPI HPI Follow up 4 months : Details: LAST VISIT GERD (gastroesophageal reflux disease) Postprandial abdominal bloating Chronic idiopathic constipation Postprandial diarrhea LLQ abdominal pain Plan Patient continues to have a left lower quadrant pain, history of sigmoid resection due to diverticulitis. History of diverticulosis. Patient will be sent for CT scan to rule out diverticulitis. Patient denies any fever or chills. Denies any diarrhea. Continues to be constipated. Hold Linzess. Take Dulcolax 2 tablets with Colace in the evening. Patient will stop taking pantoprazole and start to take Nexium in the morning and famotidine at bedtime. Avoid dietary triggers and late night snacking. Staying upright for minimum 3 hours after meals discussed with patient. Patient will return in 2 months, sooner on as needed basis. She is agreeable to this plan and verbalizes understanding of instructions. She was given the opportunity to ask questions and all questions answered. ? Thank you for allowing me to participate in her care Orders Orders CT abdomen pelvis w IV con Today R10.12, R10.9, Z90.49 Medications New famotidine 40 mg PO BEDTIME 30 tabs 3RF K21.9 bisacodyl (Dulcolax (bisacodyl)) 10 mg (2 x 5 mg) PO BEDTIME 60 tabs 4RF esomeprazole magnesium (Nexium) 40 mg PO DAILY 30 caps 5RF K21.9 Discontinued pantoprazole Discontinued Reason: Doctor's Order 40 mg PO BID 60 tabs 3RF K21.9 sennosides (Natural Senna Laxative) Discontinued Reason: Doctor's Order 17.2 mg (2 x 8.6 mg) PO BEDTIME 60 tabs 3RF constipation K59.00 TODAY'S VISIT Patient is here today for follow-up and to discuss CT scan results. Patient reports to be feeling better, less abdominal pain. CT scan showed no acute processes except for stool burden throughout the colon. Patient started taking Dulcolax tablets and reports that she is able to move her bowels, however she still feels constipated. If she has no good effect after taking it for 2-3 days she takes Linzess. Patient denies any abdominal pain or discomfort. Patient is trying to lose weight and eating healthier. Patient denies melena, hematochezia, unintentional weight loss or ribbon like stools. Patient reports that her symptoms of acid reflux are suppressed at this time. Patient is using Nexium in the morning and famotidine at bedtime. Patient denies any nausea or vomiting. Denies any dyspepsia, dysphagia or odynophagia. [facility] Medical History Helicobacter pylori (H. pylori) Hyperlipidemia Hypertension Arthritis Diabetes Depression GERD (gastroesophageal reflux disease) INDERJIT (obstructive sleep apnea) Nonobstructive atherosclerosis of coronary artery PAC (premature atrial contraction) Surgical History H/O tooth extraction Hx of colonoscopy History of esophagogastroduodenoscopy (EGD) History of hysterectomy Status post phlebectomy History of exploratory laparotomy History of tubal ligation Family History Father No problems noted. Mother Cervical cancer Social History Household Members: Children Household Members Other:: son Are you a primary palliative care physician to a significant other at home: Yes (disabled son) Do you presently have visiting nurse or other home services: No Alcohol intake: never Patient Tobacco Use Status: Never used Tobacco Results Reviewed Results Reviewed: ABD. CT SCAN FINDINGS: LUNG BASES: There is mild medial left base pleural and parenchymal scarring. There are mild coronary artery atherosclerotic calcifications. LIVER, GALLBLADDER, AND BILIARY TREE: The liver is normal in size, shape, and attenuation. No focal hepatic lesion or biliary ductal dilatation is present. The gallbladder is unremarkable with no evidence of radiopaque gallstones, gallbladder wall thickening, or obvious pericholecystic inflammatory changes. PANCREAS: Unremarkable. SPLEEN: Unremarkable. ADRENAL GLANDS: Unremarkable. KIDNEYS AND URETERS: The kidneys are normal in size, shape, and attenuation. No hydronephrosis, hydroureter, or calculi seen. No perinephric stranding. BLADDER: Unremarkable. GASTROINTESTINAL TRACT: There is a patent rectosigmoid anastomotic staple line. There is a moderate stool burden, suggesting possible constipation. There is mild diverticulosis, without acute diverticulitis. No obstruction, free intraperitoneal air or abscess is seen. No focal bowel wall thickening is seen. The vermiform appendix appears normal. ABDOMINAL WALL: There is a small fat-containing umbilical hernia defect. LYMPH NODES: Normal. VASCULAR: There is mild aortoiliac atherosclerotic calcification. No abdominal aortic aneurysm or dissection is seen. PELVIC VISCERA: Surgically absent. No pelvic mass, free fluid or lymphadenopathy is seen. OSSEOUS STRUCTURES: There is multi-level thoracolumbar degenerative disc disease and endplate arthropathy. Endplate arthropathy is particularly severe L1-L2, where it is marked. There is marked disc space narrowing noted at L5-S1. No acute or aggressive osseous finding is noted. CT/CT abdomen pelvis w IV con IMPRESSION: 1. A patent rectosigmoid anastomotic staple line is seen. There is a moderate colonic stool burden, suggesting possible constipation. No obstruction, free intraperitoneal air or abscess is seen. The vermiform appendix appears normal. 2. There is no urinary calculus or obstruction. 3. There is no abdominopelvic mass, free fluid lymphadenopathy. 4. There are degenerative changes of the spine, with degenerative disc disease most pronounced at L5-S1. No aggressive osseous lesion is seen. Assessment & Plan Assessment & Plan (1) GERD (gastroesophageal reflux disease): Code(s): K21.9 - Gastro-esophageal reflux disease without esophagitis Qualifiers: Esophagitis presence: esophagitis presence not specified Qualified Code(s): K21.9 - Gastro-esophageal reflux disease without esophagitis (2) Postprandial abdominal bloating: Code(s): R14.0 - Abdominal distension (gaseous) (3) Chronic idiopathic constipation: Code(s): K59.04 - Chronic idiopathic constipation (4) Postprandial diarrhea: Code(s): K52.9 - Noninfective gastroenteritis and colitis, unspecified (5) LLQ abdominal pain: Code(s): R10.32 - Left lower quadrant pain Plan Patient will continue taking Dulcolax tablets and will add stool softener. Patient was encouraged to increase fluid intake and activity to promote better bowel motility. Continue Nexium and famotidine. Avoid dietary triggers and late night snacking. Staying upright for minimum 3 hours after meals discussed with patient. Patient will return in 3 months, sooner on as needed basis. Patient is due to go for colonoscopy in May of 2025. She is agreeable to this plan and verbalizes understanding of instructions. She was given the opportunity to ask questions and all questions answered. Thank you for allowing me to participate in her care Medications: Refilled famotidine 40 mg PO BEDTIME 30 tabs 3RF K21.9 - Gastro-esophageal reflux disease without esophagitis docusate sodium 200 mg (2 x 100 mg) PO BEDTIME 180 caps 3RF K59.00 - Constipation, unspecified Coding Level of Care Code Est Pt Level 4 (59553) Diagnoses Gastroesophageal reflux disease, unspecified whether esophagitis present K21.9 Esophagitis presence: esophagitis presence not specified Postprandial abdominal bloating R14.0 Chronic idiopathic constipation K59.04 Postprandial diarrhea K52.9 LLQ abdominal pain R10.32 Time Spent (min) 35 Comment 20 minutes spent with patient and additional 15 minutes spent reviewing her records
[2024-05-08 10:36] VITALS: BP 120/66; PULSE 68; O2SAT 97; BMI 34.4
== END 2024-05-08 11:42 | disposition home or self-care (01) ==
PROVIDERS: Visit Provider Nurse Practitioner Family
DX: K21.9 Gastro-esophageal reflux disease without esophagitis (principal); R14.0 Abdominal distension (gaseous); K59.04 Chronic idiopathic constipation; K52.9 Noninfective gastroenteritis and colitis, unspecified; R10.32 Left lower quadrant pain
CPT/HCPCS: 99214

== ENCOUNTER → 2024-05-08 10:21 | Outpatient (BNVA) | payer MEDICARE, MEDICAID, SELFPAY | PROVIDERS: Visit Provider Nurse Practitioner Family | DX: K21.9 Gastro-esophageal reflux disease without esophagitis (principal); K59.04 Chronic idiopathic constipation; K52.9 Noninfective gastroenteritis and colitis, unspecified; R14.0 Abdominal distension (gaseous); R10.32 Left lower quadrant pain | CPT/HCPCS: 99212 ==

== ENCOUNTER 2024-08-16 13:14 | Outpatient (REF) | payer MEDICARE, MEDICAID, SELFPAY ==
--- NOTE | ~2024-08-16 | MM_ITS ---
EXAMINATION: MM SCREENING DIGITAL BREAST TOMOSYNTHESIS, BILATERAL CLINICAL INFORMATION: Screening. Asymptomatic. COMPARISON: Mammography: Comparison is made with available priors TECHNIQUE: Digital breast mammography with tomosynthesis is performed in both the craniocaudal and mediolateral oblique views along with computer-aided detection (CAD). FINDINGS: There are scattered areas of fibroglandular density (ACR BI-RADS breast composition Category b). There are no significant masses, abnormal calcifications, or other abnormalities. MM/MM tomosynthesis screening BI IMPRESSION: No mammographic evidence of malignancy. ASSESSMENT: BI-RADS BI-RADS 1 - Negative RECOMMENDATION: Routine annual mammography screening. 1 year F/U This examination should not preclude the clinical evaluation of a suspicious palpable abnormality. This patient's information was entered into a reminder system with a target due date for their next mammogram. Electronically signed by: Izabel Velasquez DO 08/28/2024 03:40 PM EDT
== END 2024-08-16 13:15 | disposition home or self-care (01) ==
LOC: HO.MAMMO 13:14
PROVIDERS: PCP Nurse Practitioner Family; Visit Provider Nurse Practitioner Family
DX: Z12.31 Encounter for screening mammogram for malignant neoplasm of breast (principal)
CPT/HCPCS: 77063; 77067

== ENCOUNTER → 2024-08-16 13:30 | Outpatient (BNV) | payer MEDICARE, MEDICAID, SELFPAY | PROVIDERS: PCP Nurse Practitioner Family; Visit Provider Internal Medicine | DX: Z12.31 Encounter for screening mammogram for malignant neoplasm of breast (principal) | CPT/HCPCS: 77063; 77067 ==

== ENCOUNTER 2024-08-19 10:23 | Outpatient (AMB) | payer MEDICARE, MEDICAID, SELFPAY ==
[2024-08-19 10:31] VITALS: BP 136/66; PULSE 64; O2SAT 100; BMI 34.4
--- NOTE | 2024-08-19 10:31 | A.OFFVIS_ITS ---
Vital Signs 08/19/24 10:31 Height 5 ft 3 in Weight 194 lb 7.163 oz BMI 34.4 BP 136/66 Blood Pressure Location Lt brachial Position Sitting Pulse 64 Pulse Source Pulse Oximeter Pulse Oximetry (%) 100 Oxygen Delivery Method Room Air Intake Visit Reasons: follow up Intake Note: Sis presents in office today for a scheduled FUV. CC; Pt reports that they have remained stable since their last visit. Pt still experiencing breakthrough sx. Pt today is experiencing reflux after breakfast which consisted of crackers and coffee. Pt also reporting LLQ pain which is episodic and has been present now for the last few weeks. Pt typically has a BM every 2-3 days. Sometimes multiple times per day. Pt denies any N/V. County Adviser Required: Yes County Adviser Services: County Adviser Offered & Declined County Adviser Name: Family member Allergies pregabalin [From Lyrica] Allergy (Severe, Verified 08/19/24 10:32) body rash enalapril [ENALAPRIL] Allergy (Unknown, Verified 08/19/24 10:32) COUGH Penicillins [PENICILLINS] Allergy (Unknown, Verified 08/19/24 10:32) RASH pravastatin [PRAVASTATIN] Allergy (Unknown, Verified 08/19/24 10:32) RASH glipizide Adverse Reaction (Unknown, Verified 08/19/24 10:32) hypoglycemia metformin Adverse Reaction (Unknown, Verified 08/19/24 10:32) abdominal pain simvastatin Adverse Reaction (Unknown, Verified 08/19/24 10:32) stomach upset HPI HPI follow up: Details: LAST VISIT GERD (gastroesophageal reflux disease) Postprandial abdominal bloating Chronic idiopathic constipation Postprandial diarrhea LLQ abdominal pain Plan Patient will continue taking Dulcolax tablets and will add stool softener. Patient was encouraged to increase fluid intake and activity to promote better bowel motility. Continue Nexium and famotidine. Avoid dietary triggers and late night snacking. Staying upright for minimum 3 hours after meals discussed with patient. Patient will return in 3 months, sooner on as needed basis. Patient is due to go for colonoscopy in May of 2025. She is agreeable to this plan and verbalizes understanding of instructions. She was given the opportunity to ask questions and all questions answered. ? Thank you for allowing me to participate in her care Medications Refilled famotidine 40 mg PO BEDTIME 30 tabs 3RF K21.9 docusate sodium 200 mg (2 x 100 mg) PO BEDTIME 180 caps 3RF K59.00 TODAY'S VISIT Patient is here today for follow-up. Patient reports that she continues to have epigastric pain no matter what she eats. Patient currently is taking as omeprazole in the morning and famotidine at bedtime. Patient states that her symptoms are not suppressed. Patient reports epigastric pain and epigastric burning at night time as well. Patient reports left upper quadrant pain and abdominal bloating. States that she is taking Linzess only couple times a week as it makes her have diarrhea whole day. Patient denies any melena, hematochezia. Patient is due to go for colonoscopy in May of 2025. Patient reports occasional dyspepsia without dysphagia or odynophagia. [facility] Medical History Helicobacter pylori (H. pylori) Hyperlipidemia Hypertension Arthritis Diabetes Depression GERD (gastroesophageal reflux disease) INDERJIT (obstructive sleep apnea) Nonobstructive atherosclerosis of coronary artery PAC (premature atrial contraction) Surgical History H/O tooth extraction Hx of colonoscopy History of esophagogastroduodenoscopy (EGD) History of hysterectomy Status post phlebectomy History of exploratory laparotomy History of tubal ligation Family History Father No problems noted. Mother Cervical cancer Social History Household Members: Children Household Members Other:: son Are you a primary healthcare network pricing consultant to a significant other at home: Yes (disabled son) Do you presently have visiting nurse or other home services: No Alcohol intake: never Patient Tobacco Use Status: Never used Tobacco Review of Systems Const Denies weight gain and Denies weight loss ENT Reports no additional complaints, Denies dysphagia and Denies odynophagia Card Reports no additional complaints Resp Reports no additional complaints GI Reports abdominal pain (LUQ, LLQ), Denies belching, Denies melena, Reports bloating, Reports constipation, Denies dysphagia, Denies excessive flatus, Denies dyspepsia, Reports heartburn, Denies diarrhea, Denies loose stools, Denies nausea, Denies odynophagia and Denies vomiting Reports no additional complaints Musc Reports no additional complaints Neuro Reports no additional complaints Psych Reports no additional complaints Endo Reports no additional complaints Physical Exam Vital Signs: Last Vital Signs Pulse 64 08/19/24 10:31 BP 136/66 08/19/24 10:31 Pulse Ox 100 08/19/24 10:31 Oxygen Delivery Method Room Air 08/19/24 10:31 BMI result Body Mass Index 34.4 Const General: healthy appearing and no acute distress Nutritional Appearance: obese Orientation/consciousness: patient oriented x3 Resp Effort & Inspection: normal respiratory effort, able to speak in complete sentences, no tracheal deviation and symmetric chest movement Auscultation: clear to auscultation bilaterally Cardio Rate: regular rate GI Inspection: Yes normal to inspection, No distended and Yes obesity Palpation (GI): Soft to palpation, not firm, nontender and No hepatosplenomegaly present Auscultation: normal bowel sounds General: Yes no CVA tenderness Back/Spine/Pelvis Back: no CVA tenderness Skin General skin exam: elasticity normal, turgor normal and dry skin Neuro General: patient oriented x3 Psych Appearance: grossly normal Mental Status: mental status grossly normal Assessment & Plan Assessment & Plan (1) GERD (gastroesophageal reflux disease): Code(s): K21.9 - Gastro-esophageal reflux disease without esophagitis Qualifiers: Esophagitis presence: esophagitis presence not specified Qualified Code(s): K21.9 - Gastro-esophageal reflux disease without esophagitis (2) Postprandial abdominal bloating: Code(s): R14.0 - Abdominal distension (gaseous) (3) Chronic idiopathic constipation: Code(s): K59.04 - Chronic idiopathic constipation (4) Postprandial diarrhea: Code(s): K52.9 - Noninfective gastroenteritis and colitis, unspecified (5) LLQ abdominal pain: Code(s): R10.32 - Left lower quadrant pain Plan Patient will stop taking esomeprazole in on lansoprazole. Patient will take sucralfate at bedtime instead of famotidine. Avoid dietary triggers and late night snacking. Stop Linzess and start taking Dulcolax 2 tablets every evening. Increase fluid intake and activity to promote better bowel motility. Follow- up in 3 months, sooner on as needed basis. Patient is agreeable to this plan and verbalizes of instructions. She was given the opportunity to ask questions and all questions answered Thank you for allowing me to participate in her care Medications: New lansoprazole 30 mg PO DAILY 30 caps 3RF K21.9 - Gastro-esophageal reflux disease without esophagitis sucralfate 1 g PO BEDTIME 30 tabs 4RF R19.7 - Diarrhea, unspecified Refilled bisacodyl (Dulcolax (bisacodyl)) 10 mg (2 x 5 mg) PO BEDTIME 60 tabs 4RF Discontinued linaclotide (Linzess) Discontinued Reason: Doctor's Order 145 mcg PO DAILY 90 caps 2RF famotidine Discontinued Reason: Doctor's Order 40 mg PO BEDTIME 30 tabs 3RF K21.9 - Gastro-esophageal reflux disease without esophagitis esomeprazole magnesium (Nexium) Discontinued Reason: Doctor's Order 40 mg PO DAILY 30 caps 5RF K21.9 - Gastro-esophageal reflux disease without esophagitis Coding Level of Care Code Est Pt Level 4 (96521) Diagnoses Gastroesophageal reflux disease, unspecified whether esophagitis present K21.9 Esophagitis presence: esophagitis presence not specified Postprandial abdominal bloating R14.0 Chronic idiopathic constipation K59.04 Postprandial diarrhea K52.9 LLQ abdominal pain R10.32 Time Spent (min) 35 Comment 25 minutes spent with patient and additional 10 minutes spent reviewing her records
== END 2024-08-19 11:26 | disposition home or self-care (01) ==
PROVIDERS: Visit Provider Nurse Practitioner Family
DX: K21.9 Gastro-esophageal reflux disease without esophagitis (principal); R14.0 Abdominal distension (gaseous); K59.04 Chronic idiopathic constipation; K52.9 Noninfective gastroenteritis and colitis, unspecified; R10.32 Left lower quadrant pain
CPT/HCPCS: 99214

== ENCOUNTER → 2024-08-19 10:23 | Outpatient (BNVA) | payer MEDICARE, MEDICAID, SELFPAY | PROVIDERS: Visit Provider Nurse Practitioner Family | DX: K21.9 Gastro-esophageal reflux disease without esophagitis (principal); K59.04 Chronic idiopathic constipation; R10.13 Epigastric pain; R14.0 Abdominal distension (gaseous); K52.9 Noninfective gastroenteritis and colitis, unspecified; R10.32 Left lower quadrant pain; Z79.899 Other long term (current) drug therapy | CPT/HCPCS: 99212 ==

== ENCOUNTER 2024-11-07 09:18 | Outpatient (AMB) | payer MEDICARE, MEDICAID, SELFPAY ==
--- NOTE | 2024-11-07 09:29 | MHC.OFFVIS ---
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 Patient had varicose veins on both legs that are raised and bothersome. Previously had micro in 2020. 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 She had actually been treated by us February of 2021. She has developed new varicosities on the right lower extremity that have been a source of pain and discomfort. She actually has evidence of healed ulceration there. She is most concerned of her varicosities on the right pretibial surface. Of note she has been using compression which has provided minimal relief. [facility] Medical History Helicobacter pylori (H. pylori) Hyperlipidemia Hypertension Arthritis Diabetes Depression GERD (gastroesophageal reflux disease) INDERJIT (obstructive sleep apnea) Nonobstructive atherosclerosis of coronary artery PAC (premature atrial contraction) Surgical History H/O tooth extraction Hx of colonoscopy History of esophagogastroduodenoscopy (EGD) History of hysterectomy Status post phlebectomy History of exploratory laparotomy History of tubal ligation Family History Father No problems noted. Mother Cervical cancer Social History Household Members: Children Household Members Other:: son Are you a primary child care specialist to a significant other at home: Yes (disabled son) Do you presently have visiting nurse or other home services: No Alcohol intake: never Patient Tobacco Use Status: Never used Tobacco Review of Systems Const Reports as per HPI ENT Reports no additional complaints Card Denies chest pain, Denies chest pain at rest and Denies chest pain with activity Resp Denies chest congestion and Denies cough GI Reports no additional complaints Musc Details: pain over varicosities, aching of lower extremities, swelling, cramping, heaviness and tiredness, itching Denies abnormal gait Skin/Breast Reports pruritus and Denies wounds Neuro Reports no additional complaints and Denies abnormal gait Psych Denies no additional complaints Physical Exam Const General: cooperative, healthy appearing and comfortable Orientation/consciousness: oriented to person, oriented to place and oriented to time Neck Carotids: no bruits Chest Chest palpation & inspection: normal inspection of the chest and normal palpation of entire chest wall Resp Effort & Inspection: normal respiratory effort and able to speak in complete sentences Cardio Rate: regular rate Heart sounds: S1 normal heart sound present and S2 normal heart sound present Peripheral pulses: Peripheral pulses 2+ throughout GI Inspection: Yes normal to inspection Skin Other: +2 edema, large rope-like varicosities greater than 4 mm right pretibial surface CEAP Classification C4 - skin color changes Ep - Etiology Primary As - superficial veins P - reflux General skin exam: dry skin Neuro General: oriented to person, oriented to place and oriented to time Extrem Right lower extremity: full ROM, normal capillary refill and edema Left lower extremity: full ROM, normal capillary refill and edema Psych Mental Status: mental status grossly normal Assessment & Plan Assessment & Plan (1) Varicose veins of right lower extremity with inflammation: Comment: 03/05/2021 - right leg microphlebectomy Code(s): I83.11 - Varicose veins of right lower extremity with inflammation Category: Medical Plan: In short patient has recurrent venous disease. I have taken the liberty of ordering repeat right leg venous ultrasound to rule out reflux. Should that prove to be negative she may need right lower extremity microphlebectomy. She will follow up with us after testing. We did discuss routine conservative measures including compression, elevation, exercise. Thank you for allowing us to assist in her care. If there are any questions or concerns please do not hesitate to contact us. Orders: Orders US venous duplex LE RT 1 Week I83.11 - Varicose veins of right lower extremity with inflammation Coding Level of Care Code Est Pt Level 4 (63438) Diagnoses Varicose veins of right lower extremity with inflammation I83.11
== END 2024-11-07 09:51 | disposition home or self-care (01) ==
PROVIDERS: Visit Provider Surgery Vascular Surgery
DX: I83.11 Varicose veins of right lower extremity with inflammation (principal)
CPT/HCPCS: 99214

== ENCOUNTER → 2024-11-07 09:18 | Outpatient (BNVA) | payer MEDICARE, MEDICAID, SELFPAY | PROVIDERS: Visit Provider Surgery Vascular Surgery | DX: I83.11 Varicose veins of right lower extremity with inflammation (principal) | CPT/HCPCS: 99212 ==

== ENCOUNTER 2024-11-14 09:48 | Outpatient (AMB) | payer MEDICARE, MEDICAID, SELFPAY ==
[2024-11-14 09:49] VITALS: BP 122/52; PULSE 58; O2SAT 97; BMI 34.1
--- NOTE | 2024-11-14 09:49 | MHC.OFFVIS ---
Vital Signs 11/14/24 09:49 Height 5 ft 3 in Weight 192 lb 3.889 oz BMI 34.1 BP 122/52 L Blood Pressure Location Rt brachial Position Sitting Pulse 58 Pulse Source Pulse Oximeter Pulse Oximetry (%) 97 Oxygen Delivery Method Room Air Intake Visit Reasons: 3 mos FUV. Intake Note: ESTABLISHED PATIENT Sis presents in office today for a scheduled 3 mos FUV. Meds and Allergies reviewed? Y No recent or relevant surgeries? N Any significant concerns or new changes? Increased gas Pharmacy verified? [facility] Treasury Management Sales Consultant Required: Yes Treasury Management Sales Consultant Services: Treasury Management Sales Consultant Present Treasury Management Sales Consultant Name: [id number] Elisabet Information Interpreted: non-clinical & clinical Accompanied by: Self / Same As Patient Allergies pregabalin [From Lyrica] Allergy (Severe, Verified 11/14/24 09:49) body rash enalapril [ENALAPRIL] Allergy (Unknown, Verified 11/14/24 09:49) COUGH Penicillins [PENICILLINS] Allergy (Unknown, Verified 11/14/24 09:49) RASH pravastatin [PRAVASTATIN] Allergy (Unknown, Verified 11/14/24 09:49) RASH glipizide Adverse Reaction (Unknown, Verified 11/14/24 09:49) hypoglycemia metformin Adverse Reaction (Unknown, Verified 11/14/24 09:49) abdominal pain simvastatin Adverse Reaction (Unknown, Verified 11/14/24 09:49) stomach upset HPI HPI 3 mos FUV.: Details: LAST VISIT: GERD (gastroesophageal reflux disease) Postprandial abdominal bloating Chronic idiopathic constipation Postprandial diarrhea LLQ abdominal pain Plan Patient will stop taking esomeprazole in on lansoprazole. Patient will take sucralfate at bedtime instead of famotidine. Avoid dietary triggers and late night snacking. Stop Linzess and start taking Dulcolax 2 tablets every evening. Increase fluid intake and activity to promote better bowel motility. Follow-up in 3 months, sooner on as needed basis. Patient is agreeable to this plan and verbalizes of instructions. She was given the opportunity to ask questions and all questions answered ? Thank you for allowing me to participate in her care Medications New lansoprazole 30 mg PO DAILY 30 caps 3RF K21.9 sucralfate 1 g PO BEDTIME 30 tabs 4RF R19.7 Refilled bisacodyl (Dulcolax (bisacodyl)) 10 mg (2 x 5 mg) PO BEDTIME 60 tabs 4RF Discontinued linaclotide (Linzess) Discontinued Reason: Doctor's Order 145 mcg PO DAILY 90 caps 2RF famotidine Discontinued Reason: Doctor's Order 40 mg PO BEDTIME 30 tabs 3RF K21.9 esomeprazole magnesium (Nexium) Discontinued Reason: Doctor's Order 40 mg PO DAILY 30 caps 5RF K21.9 TODAY'S VISIT Patient is here today for follow-up. Patient reports that she has been feeling better now. Patient states that lansoprazole is helping her. Patient also is avoiding certain dietary triggers. Continues to feel like she is bloated after eating certain food. Patient reports that she is able to go to the bathroom better now that she started taking Dulcolax. Patient was on Linzess in the past and the was too much for her. Patient was having loose stools. Now she feels like she empties her bowels better. Patient is asking to get something stronger for her bloating. She will be due to go for colonoscopy next year in May. Patient denies any dyspepsia, dysphagia or odynophagia. Denies melena, hematochezia, unintentional weight loss or ribbon like stools. [facility] Medical History Helicobacter pylori (H. pylori) Hyperlipidemia Hypertension Arthritis Diabetes Depression GERD (gastroesophageal reflux disease) INDERJIT (obstructive sleep apnea) Nonobstructive atherosclerosis of coronary artery PAC (premature atrial contraction) Surgical History H/O tooth extraction Hx of colonoscopy History of esophagogastroduodenoscopy (EGD) History of hysterectomy Status post phlebectomy History of exploratory laparotomy History of tubal ligation Family History Father No problems noted. Mother Cervical cancer Social History Household Members: Children Household Members Other:: son Are you a primary acute care clinical nurse specialist to a significant other at home: Yes (disabled son) Do you presently have visiting nurse or other home services: No Alcohol intake: never Patient Tobacco Use Status: Never used Tobacco Review of Systems Const Denies weight gain and Denies weight loss ENT Reports no additional complaints, Denies dysphagia and Denies odynophagia Card Reports no additional complaints Resp Reports no additional complaints GI Denies abdominal pain, Denies belching, Denies melena, Denies bloating, Denies change in bowel habits, Denies dysphagia, Denies excessive flatus, Denies dyspepsia, Denies heartburn, Denies diarrhea, Denies loose stools, Denies nausea, Denies odynophagia and Denies vomiting Musc Reports no additional complaints Neuro Reports no additional complaints Psych Reports no additional complaints Endo Reports no additional complaints Physical Exam Const General: healthy appearing and no acute distress Nutritional Appearance: obese Orientation/consciousness: patient oriented x3 Resp Effort & Inspection: normal respiratory effort, able to speak in complete sentences, no tracheal deviation and symmetric chest movement Auscultation: clear to auscultation bilaterally Cardio Rate: regular rate GI Inspection: Yes normal to inspection, No distended and Yes obesity Palpation (GI): Soft to palpation, not firm, nontender and No hepatosplenomegaly present Auscultation: normal bowel sounds General: Yes no CVA tenderness Back/Spine/Pelvis Back: no CVA tenderness Skin General skin exam: elasticity normal, turgor normal and dry skin Neuro General: patient oriented x3 Psych Appearance: grossly normal Mental Status: mental status grossly normal Assessment & Plan Assessment & Plan (1) GERD (gastroesophageal reflux disease): Code(s): K21.9 - Gastro-esophageal reflux disease without esophagitis Qualifiers: Esophagitis presence: esophagitis presence not specified Qualified Code(s): K21.9 - Gastro-esophageal reflux disease without esophagitis (2) Postprandial abdominal bloating: Code(s): R14.0 - Abdominal distension (gaseous) (3) Chronic idiopathic constipation: Code(s): K59.04 - Chronic idiopathic constipation (4) Postprandial diarrhea: Code(s): K52.9 - Noninfective gastroenteritis and colitis, unspecified (5) LLQ abdominal pain: Code(s): R10.32 - Left lower quadrant pain Plan Patient will continue lansoprazole. Avoid dietary triggers and late night snacking. Staying upright for minimum 3 hours after meals discussed with patient. Patient will continue Dulcolax. Increase fluid intake and activity to promote better bowel motility. Patient will follow-up in 6 months she will be due to go for colonoscopy after May of 2025. We will discuss prep. Patient might be sent for upper endoscopy depending on her symptoms. Patient is agreeable to current plan of care and verbalizes understanding of instructions. She was given the opportunity to ask questions and all questions answered. Thank you for allowing me to participate in her care Medications: New simethicone (Gas Relief (simethicone)) 125 mg PO BID-TID PRN 90 tabs 3RF abdominal distention Discontinued simethicone (Gas Relief (simethicone)) Discontinued Reason: Doctor's Order 80 mg PO TID-QID PRN 120 tabs 2RF abdominal distention Coding Level of Care Code Est Pt Level 4 (61282) Complex EM visit Add On G2211 Diagnoses Gastroesophageal reflux disease, unspecified whether esophagitis present K21.9 Esophagitis presence: esophagitis presence not specified Postprandial abdominal bloating R14.0 Chronic idiopathic constipation K59.04 Postprandial diarrhea K52.9 LLQ abdominal pain R10.32 Time Spent (min) 35 Comment 20 minutes spent with patient and additional 15 minutes spent reviewing her records
== END 2024-11-14 10:34 | disposition home or self-care (01) ==
PROVIDERS: Visit Provider Nurse Practitioner Family
DX: K21.9 Gastro-esophageal reflux disease without esophagitis (principal); R14.0 Abdominal distension (gaseous); K59.04 Chronic idiopathic constipation; K52.9 Noninfective gastroenteritis and colitis, unspecified; R10.32 Left lower quadrant pain
CPT/HCPCS: 99214; G2211

== ENCOUNTER → 2024-11-14 09:48 | Outpatient (BNVA) | payer MEDICARE, MEDICAID, SELFPAY | PROVIDERS: Visit Provider Nurse Practitioner Family | DX: K21.9 Gastro-esophageal reflux disease without esophagitis (principal); R14.0 Abdominal distension (gaseous); K59.04 Chronic idiopathic constipation; R10.32 Left lower quadrant pain; K52.9 Noninfective gastroenteritis and colitis, unspecified | CPT/HCPCS: 99212 ==

== ENCOUNTER 2024-11-19 10:21 | Outpatient (REF) | payer MEDICARE, MEDICAID, SELFPAY | END 2024-11-19 10:22 | disposition home or self-care (01) | LOC: HO.US 10:21 | PROVIDERS: Visit Provider Surgery Vascular Surgery | DX: I83.11 Varicose veins of right lower extremity with inflammation (principal) | CPT/HCPCS: 93971 ==

== ENCOUNTER → 2024-11-19 10:23 | Outpatient (BNV) | payer MEDICARE, MEDICAID, SELFPAY | PROVIDERS: Visit Provider Radiology Diagnostic Radiology | DX: I83.891 Varicose veins of right lower extremity with other complications (principal) | CPT/HCPCS: 93971 ==

== ENCOUNTER 2024-12-05 13:38 | Outpatient (AMB) | payer MEDICARE, MEDICAID, SELFPAY ==
--- NOTE | 2024-12-05 13:41 | MHC.OFFVIS ---
Intake Visit Reasons: Follow up [place] Real Estate Assessor Required: Yes Real Estate Assessor Services: Real Estate Assessor Offered & Declined Real Estate Assessor Name: Elise Accompanied by: Grand Child Allergies pregabalin [From Lyrica] Allergy (Severe, Verified 11/14/24 09:49) body rash enalapril [ENALAPRIL] Allergy (Unknown, Verified 11/14/24 09:49) COUGH Penicillins [PENICILLINS] Allergy (Unknown, Verified 11/14/24 09:49) RASH pravastatin [PRAVASTATIN] Allergy (Unknown, Verified 11/14/24 09:49) RASH glipizide Adverse Reaction (Unknown, Verified 11/14/24 09:49) hypoglycemia metformin Adverse Reaction (Unknown, Verified 11/14/24 09:49) abdominal pain simvastatin Adverse Reaction (Unknown, Verified 11/14/24 09:49) stomach upset HPI HPI Follow up [place]: Details: Very pleasant 69-year-old female presents for routine follow-up regarding venous disease. She had some new right pretibial varicosities that have been a source of pain and discomfort for her. She has used compression with minimal relief. She now presents for follow-up with right lower extremity venous insufficiency testing. [facility] Medical History Helicobacter pylori (H. pylori) Hyperlipidemia Hypertension Arthritis Diabetes Depression GERD (gastroesophageal reflux disease) INDERJIT (obstructive sleep apnea) Nonobstructive atherosclerosis of coronary artery PAC (premature atrial contraction) Surgical History H/O tooth extraction Hx of colonoscopy History of esophagogastroduodenoscopy (EGD) History of hysterectomy Status post phlebectomy History of exploratory laparotomy History of tubal ligation Family History Father No problems noted. Mother Cervical cancer Social History Household Members: Children Household Members Other:: son Are you a primary acute care certified nursing assistant to a significant other at home: Yes (disabled son) Do you presently have visiting nurse or other home services: No Alcohol intake: never Patient Tobacco Use Status: Never used Tobacco Review of Systems Const Denies chills, Denies fatigue, Denies fever(s), Denies weight gain and Denies weight loss ENT Denies dizziness Card Denies chest pain, Denies leg edema, Denies lightheadedness, Denies palpitations, Denies dyspnea on exertion, Denies orthopnea and Denies other Resp Denies cough and Denies dyspnea on exertion GI Denies hematochezia and Denies change in stool character Musc Details: pain over varicosities, aching of lower extremities, swelling, cramping, heaviness and tiredness, itching Denies abnormal gait, Denies muscle weakness, Denies numbness, Denies radiating pain into limb and Denies tingling Skin/Breast Reports pruritus and Denies wounds Neuro Denies abnormal gait, Denies dizziness, Denies numbness and Denies tingling Psych Denies no additional complaints Endo Denies fatigue and Denies palpitations Physical Exam Const General: cooperative, healthy appearing and comfortable Orientation/consciousness: oriented to person, oriented to place and oriented to time Neck Carotids: no bruits Chest Chest palpation & inspection: normal inspection of the chest and normal palpation of entire chest wall Resp Effort & Inspection: normal respiratory effort and able to speak in complete sentences Cardio Rate: regular rate Heart sounds: S1 normal heart sound present and S2 normal heart sound present Peripheral pulses: Peripheral pulses 2+ throughout GI Inspection: Yes normal to inspection Skin Other: +2 edema, large rope-like varicosities greater than 4 mm right pretibial surface CEAP Classification C4 - skin color changes Ep - Etiology Primary As - superficial veins P - reflux General skin exam: dry skin Neuro General: oriented to person, oriented to place and oriented to time Extrem Right lower extremity: full ROM, normal capillary refill and edema Left lower extremity: full ROM, normal capillary refill and edema Psych Mental Status: mental status grossly normal Results Reviewed Results Reviewed: Brief summary of venous insufficiency testing is as follows: right great saphenous vein: Positive right small saphenous vein: negative right accessory vein: none present Please note there is no evidence of any venous aneurysms or significant tortuosity Assessment & Plan Assessment & Plan (1) Varicose veins of right lower extremity with inflammation: Comment: 03/05/2021 - right leg microphlebectomy Code(s): I83.11 - Varicose veins of right lower extremity with inflammation Category: Medical Plan: This patient has varicose veins with inflammation. They continue to be a source of discomfort for the patient. The patient has tried conservative treatment with compression, leg elevation and exercise program for over 3 months time. They have been compliant with all treatment. This has provided minimal relief for the patient. I do not anticipate this course of treatment will alter the underlying etiology. The patient has been scheduled for lower extremity venous treatment inclusive of --- right great saphenous vein Cyanoacralate ablation. Risks, benefits, and complications of this procedure has been discussed in detail with the patient including but not limited to bleeding, infection, and the development of a DVT. The patient has demonstrated a clear understanding and has consented. We will schedule the patient as soon as possible. Thank you for allowing us to participate in this patient's care. If there are any questions or concerns please do not hesitate to contact us. Coding Level of Care Code Est Pt Level 4 (69141) Diagnoses Varicose veins of right lower extremity with inflammation I83.11
== END 2024-12-05 14:09 | disposition home or self-care (01) ==
PROVIDERS: Visit Provider Surgery Vascular Surgery
DX: I83.11 Varicose veins of right lower extremity with inflammation (principal)
CPT/HCPCS: 99214

== ENCOUNTER → 2024-12-05 13:38 | Outpatient (BNVA) | payer MEDICARE, MEDICAID, SELFPAY | PROVIDERS: Visit Provider Surgery Vascular Surgery | DX: I83.11 Varicose veins of right lower extremity with inflammation (principal) | CPT/HCPCS: 99212 ==

== ENCOUNTER 2025-08-19 09:42 | Outpatient (REF) | payer MEDICARE, MEDICAID, SELFPAY ==
--- OUTSIDE RECORDS SUMMARY | 2024-08-29 09:45 | XMS_ITS | Encounter Summary ---
Author Organization [facility] Address [address] [place] [address] Care Team Providers Care Assistant Director Of Plant Operations Name Role Phone Kasie Tomlinson Primary Care Provider [phone] Encounter Details Date Type Department Care Team (Late Contact Info) Description 08/29/2024 9:45 AM EDT Hospital Encounter TH HISTORIC ENCOUNTERS [facility] CONVERSION ONLY Naa Hall DO [address] [place] [id number] Social History Tobacco Use Types Packs/Day Years Used Date Smoking Tobacco: Never Cigarettes Qu it: 11/27/1978 Smokeless Tobacco: Never Alcohol Use Standard Drinks/Week Comments Yes 0 (1 standard drink = 0.6 oz pur e alcohol) Comments Unknown Sex and Gender Information Value Date Recorded Sex Assigned at Not on file Legal Sex Female 2:34 PM EST Gender Identity Not on file Sexual Orientation Not on file documented as of this encounter Plan of Treatment Upcoming Encounters Date Type Department Care Team (Late Contact Info) Description 03/16/2026 10:30 AM EDT Office Visit [facility] Hematology Oncology [address] [place] [phone] Naa Hall DO [address] [place] [address] documented as of this encounter Visit Diagnoses Not on filedocumented in this encounter Care Teams Assistant Director Of Plant Operations Relationship Specialty Start Date End Date BushraMargarito contrerasna [address] [place] [id number] PCP - General 10/15/21 documented as of this encounter
--- OUTSIDE RECORDS SUMMARY | 2025-08-19 11:34 | XMS_ITS | Encounter Summary ---
Author Organization [employer] Address [address] [place] [address] [address] [place] [address] Care Team Providers Care Contracting Analyst Name Role Phone Unavailable Primary Care Provider Unavailabl e Encounter Details Date Type Department Care Team (Latest Contact Info) Description 12/24/2018 Abstract [facility] CONVERSIONS Dental, Provider, DDS Social History Tobacco Use Types Packs/Day Years Used Date Smoking Tobacco: Never Assessed Comments Unknown Sex and Gender Information Value Date Recorded Sex Assigned at Female 09/26/2022 10:15 AM EDT Legal Sex Female 10:15 AM EDT Gender Identity Female 09/26/2022 10:15 AM EDT Sexual Orientation Don't know 09/26/2022 10 :15 AM EDT documented as of this encounter Plan of Treatment Not on file documented as of this encounter Visit Diagnoses Not on filedocumented in this encounter
--- OUTSIDE RECORDS SUMMARY | 2025-08-19 11:34 | XMS_ITS | Clinical Summary ---
Author Organization [employer] Address [address] [place] [address] [address] [place] [address] Care Team Providers Care Electronic Equipment Installer Name Role Phone Unavailable Primary Care Provider Unavailabl e Social History Tobacco Use Types Packs/Day Years Used Date Smoking Tobacco: Never Assessed Comments Unknown Sex and Gender Information Value Date Recorded Sex Assigned at Female 09/26/2022 10:15 AM EDT Legal Sex Female 10:15 AM EDT Gender Identity Female 09/26/2022 10:15 AM EDT Sexual Orientation Don't know 09/26/2022 10 :15 AM EDT Last Filed Vital Signs Vital Sign Reading Time Taken Comments Blood Pressure 134/88 08/26/2020 12:09 AM EDT Pulse 88 08/26/2020 12:09 AM EDT Temperature - - Respiratory Rate - - Oxygen Saturation - - Inhaled Oxygen Concentration - - Weight 98.3 kg (216 lb 12.8 oz) 020 12:09 AM EDT Height 158.8 cm (5' 2.5 ) 08/26/2020 12 :09 AM EDT Body Mass Index 39.02 08/26/2020 12:09 AM EDT Plan of Treatment Health Maintenance Due Date Last Done Comments CT Colonography 1953 Colonoscopy 1953 Colorectal Cancer Screening 1953 Depression Screening 1953 FIT DNA/Cologuard 1953 FIT 1953 FOBT 1953 Lipid Panel 1953 SDOH Screening 1953 Sigmoidoscopy 1953 Alcohol/Substance Use Screening 1965 Tobacco Screening 1965 Hepatitis C Screening 1971 RSV Patients and Patients Aged 60 years or older (1 - Risk 60-74 years 1-dose series) 2013 Mammogram 06/01/2022 06/01/2020, 02/26, 03/16/2018 Zoster Vaccines (3 of 3) 02/08/2023 12/14/2022, 040 12/2014 COVID-19 Vaccine ( - season) 2025 02/26/2022, 10/07/2021, 02/23/2021, Additional history exists Influenza Vaccine (#1) 2025 , 10/18/2022, 11/24/2021, Additional history exists DTaP/Tdap/Td Vaccines (3 - Td or Tdap) 06/28/2034 06/28/2024, 01/06/2014, 10/29/2009, Additional history exists Pneumococcal Vaccine: 50+ Years Completed 02/12/2024, 07/02/2019, 02/26/2015, Additional history exists HIB Vaccines Aged Out No longer eligi ble based on patient's age to complete this topic HPV Vaccines Aged Out No longer eligi ble based on patient's age to complete this topic Hepatitis A Vaccines Aged Out No long er eligible based on patient's age to complete this topic Hepatitis B Vaccines Aged Out No long er eligible based on patient's age to complete this topic IPV Vaccines Aged Out No longer eligi ble based on patient's age to complete this topic Meningococcal B Vaccine Aged Out No l onger eligible based on patient's age to complete this topic Meningococcal Vaccine Aged Out No carri joe eligible based on patient's age to complete this topic RSV under 20 months Aged Out No longe r eligible based on patient's age to complete this topic Rotavirus Vaccines Aged Out No longer eligible based on patient's age to complete this topic Procedures Procedure Name Priority Date/Time Associated Diagnosis Comments BI MAMMOGRAM SCREENING BILATERAL Routine 06/01/2020 8:44 AM EDT from Last 3 Months or Most Recently Relevant to Health Maintenance Results * 3D DIGITAL OSBALDO SCR MAMMO 1 (06/01/2020 8:44 AM EDT) Anatomical Region Laterality Modality Breast Bilateral Mammography 06/01/2020 8:44 AM EDT Narrative 06/01/2020 8:47 AM EDT Refer to the Notes tab for result details [facility] Procedure: 3D DIGITAL OSBALDO SCR MAMMO 1 Procedure Note Provider, MD Kassie - 02/18/2023 Refer to the Notes tab for result details Legacy Procedure: 3D DIGITAL OSBALDO SCR MAMMO 1 Elizabeth Wolf MD IMG BI PROCEDURES Final Result from Last 3 Months or Most Recently Relevant to Health Maintenance Insurance [facility] STANDARD
--- OUTSIDE RECORDS SUMMARY | 2025-08-19 11:34 | XMS_ITS | Clinical Summary ---
Author Organization [facility] Address [address] [place] [address] Phone Care Team Providers Care Instrument Sterilizer Name Role Phone Kasie Tomlinson Primary Care Provider [phone] Allergies Active Allergy Reactions Criticality Noted Date Comments Penicillins Nausea And Vomiting,Swelling High 2020 Medications ammonium lactate (AMLACTIN) 12 % cream Apply 385 g topically 2 times daily. Feet Active LORazepam (ATIVAN) 0.5 mg tablet Take 0.5 mg by mouth every 6 hours as needed for Anxiety. Active apixaban (ELIQUIS) 5 mg tablet Take 1 tablet (5 mg total) by mouth 2 (two) times a day. Active furosemide (LASIX) 20 mg tablet Take by mouth. Activ e spironolactone (ALDACTONE) 25 mg tablet Take 1 tablet (25 mg total) by mouth 1 (one) time each day. Active potassium chloride (KCL-40 ORAL) Take by mouth. A ctive lansoprazole (PREVACID) [address] capsule Take 1 capsule (30 mg total) by mouth 1 (one) time each day before breakfast. Do not crush or chew. Active empagliflozin (Jardiance) 10 mg tablet Take 1 tablet (10 mg total) by mouth 1 (one) time each day in the morning. Active SITagliptin phosphate (JANUVIA) 100 mg tablet Take 1 tablet (100 mg total) by mouth 1 (one) time each day. Active LORazepam (ATIVAN) 0.5 mg tablet Take 1 tablet (0.5 mg total) by mouth every 6 (six) hours if needed for anxiety. Max Daily Amount: 2 mg Active zolpidem (AMBIEN) 10 mg tablet Take by mouth at bedtime as needed for sleep. Active Active Problems Problem Noted Date Diagnosed Date MGUS (monoclonal gammopathy of unknown significa nce) 09/15/2021 Overview (11/06/2024): 09/16- referred to hematology Fibromyalgia 04/23/2021 Positive anti-CCP test 04/23/2021 Primary osteoarthritis involving multiple joints 04/23/2021 Anxiety and depression 03/15/2021 Chronic fatigue 03/15/2021 DDD (degenerative disc disease), lumbar 03/15/20 Diabetic neuropathy associat ed with type 2 diabetes mellitus ([facility] V24, [facility] V28) 03/15/2021 Lumbar spondylosis 03/15/2021 Obesity 03/15/2021 Plantar fascial fibromatosis 03/15/2021 Cervicalgia 03/15/2021 Encounters Date Type Department Care Team Description 07/02/2025 Telephone [facility] Hematology Oncology [address] [place] [address] Naa Hall DO 06/26/2025 Lab Requisition [facility] - Main Lab [address] [facility] [place] [address] Marie Porter PA Urinary tract infection, site not specified; Dysuria from Last 3 Months Immunizations Name Administration Dates Next Due Influenza trivalent, 0.5mL ( Fluzone High-dose) 65yo and older 08/26/2020 Influenza trivalent, with pr eservative (Fluzone; Afluria) 6mo and older 08/22/2017,08/26/2016,07/27/2012 Pfizer (ages 12 & older) STALIN S-CoV-2 COVID-19, mRNA, LNP-S, carrillo-sucrose, preservative free 02/26/2022 Pneumococcal, Unspecified 10/29/2009 Td Tetanus diptheria (Tdvax) 7yo and older 10/29 Surgical History Surgery Date Site/Laterality Comments ABDOMINAL SURGERY PROCEDURE: HISTORICAL ABDOMINAL SURGERY; COMMENT: diverticulitis HYSTERECTOMY 04/2021 PROCEDURE:HYSTERECTOMY;COMMENT:And BSO Medical History Medical History Date Comments Anxiety and depression 03/15/2021 DX:Anxiet y and depression DDD (degenerative disc disea se), lumbar 03/15/2021 DX:DDD (degenerative disc di sease), lumbar Diabetic neuropathy associat ed with type 2 diabetes mellitus ([facility] V24, [facility] V28) 03/15/2021 DX:Diabetic neuropathy assoc iated with type 2 diabetes mellitus ([facility]) Fibromyalgia 04/23/2021 DX:Fibromyalgia Neck pain 03/15/2021 DX:Neck pain Plantar fascial fibromatosis 03/15/2021 DX: Plantar fascial fibromatosis Primary osteoarthritis invol ving multiple joints 04/23/2021 DX:Primary osteoarthritis in volving multiple joints Family History Medical History Relation Name Comments Stomach cancer Brother No Known Problems Father Other cancer Maternal Grandmother Cervical cancer Mother No Known Problems Mother Relation Name Status Comments Brother Alive Father Maternal Grandmother Mother (Age 70) Social History Tobacco Use Types Packs/Day Years [...] on file Sexual Orientation Not on file Obstetrics History Last Filed Vital Signs Vital Sign Reading Time Taken Comments Blood Pressure 148/74 03/07/2025 10:45 AM EDT Pulse 85 03/07/2025 10:45 AM EDT Temperature 36.7 C (98 F) 03/07/2025 10:45 AM EDT Respiratory Rate - - Oxygen Saturation 100% 03/07/2025 10: 45 AM EDT Inhaled Oxygen Concentration - - Weight 87.5 kg (192 lb 12.8 oz) 08/29/2024 9:49 AM EDT Height 160 cm (5' 3 ) 03/07/2025 10:45 AM EDT Body Mass Index 34.15 08/29/2024 9:49 AM EDT Plan of Treatment Upcoming Encounters Date Type Department Care Team (Late st Contact Info) Description 03/16/2026 10:30 AM EDT Office Visit [facility] Hematology Oncology [address] [place] [phone] Naa Hall, DO [address] [place] [address] Health Maintenance Due Date Last Done Comments Diabetes: Annual Foot Exam 1963 Diabetes: Annual Retina Eye Exam 1963 Hepatitis A Vaccines (1 of 2 - Risk 2-dose series) 02/14/1972 Hepatitis B Vaccines (1 of 3 - Risk 3-dose series) 2013 Breast Cancer Screening 06/01/2022 06/01/2020 Cholesterol Screening (Lipid Panel) 11/05/2022 Colorectal Cancer Screening: Colonoscopy 11/05/2022 Falls Risk Assessment 11/05/2022 Hepatitis C Screening 11/05/2022 Osteoporosis Screening (Bone Density Screening) 11/05/2022 Social Influencers of Health Screening 11/05/2022 Diabetes: Annual Urine Albumin-Creatinine Ratio (uACR) 11/11/2022 Diabetes: Blood Sugar Control Test (HGBA1C) 11/11/2022 Zoster Vaccines (2 of 2) 02/08/2023 12/14/2022, 04/12/2014 Medicare Annual Wellness Visit 08/14/2024 08/14/2023 Depression Screening 11/27/2024 COVID-19 Vaccine ( season) 2025 10/18/2022, 02/26/2022, 10/07/2021, Additional history exists Influenza Vaccine (#1) 2025 , 10/18/2022, 11/24/2021, Additional history exists Diabetes: Annual GFR (Glomerular Filtration Rate) 03/07/2026 03/07/2025, 03/15/2021 Hypertension/CHF/CAD Annual BMP Blood Test 03/07/2026 03/07/2025, 03/15/2021 DTaP,Tdap,and Td Vaccines (4 - Td or Tdap) 06/28/2034 06/28/2024, 01/06/2014, 10/29/2009 Pneumococcal Vaccine: 50+ Years Completed 02/12/2024, 07/02/2019, 02/26/2015, Additional history exists RSV Immunization Adult Patients Completed 08/29/2024 HIB Vaccines Aged Out No longer eligi ble based on patient's age to complete this topic HPV Vaccines Aged Out No longer eligi ble based on patient's age to complete this topic IPV Vaccines Aged Out No longer eligi ble based on patient's age to complete this topic MMR Vaccines Aged Out No longer eligi ble based on patient's age to complete this topic Meningococcal ACWY Vaccine Aged Out N o longer eligible based on patient's age to complete this topic Meningococcal B Vaccine Aged Out No l onger eligible based on patient's age to complete this topic RSV Immunization Patients Under 20 months Aged Out No longer eligible based on patient's age to complete this topic Varicella Vaccines Aged Out No longer eligible based on patient's age to complete this topic Procedures Procedure Name Priority Date/Time Associated Diagnosis Comments CULTURE URINE Routine 06/26/2025 12:00 AM EDT Urinary tract infection, site not specified Dysuria COMPREHENSIVE METABOLIC PANEL Routine 03/07/2025 11:39 AM EDT Monoclonal gammopathy from Last 3 Months or Most Recently Relevant to Health Maintenance Results * (ABNORMAL) Culture urine (06/26/2025 12:00 AM EDT) Culture, Urine 50,000-100,000 CFU/mL Klebsiella pneumoniae ssp pneumoniae(A) MEENA 06/28/2025 8:14 AM EDT [facility] Comment: This is an edited result. Previous organism was Gram negative bacilli on 06/27/2025 at 1345 EDT. Urine Urine specimen obtained by clean catch procedure / Unknown 06/26/2025 06/26/2025 6:03 PM EDT Narrative Organism Antibiotic Method Susceptibility Klebsiella pneumoniae ssp pneumoniae Amoxicillin/Clavulanate MEENA <=2 ug/ml: Susceptible Klebsiella pneumoniae ssp pneumoniae Ampicillin/Sulbactam MEENA 4 ug/ml: Susceptible Klebsiella pneumoniae ssp pneumoniae Piperacillin/Tazobactam MEENA <=4 ug/ml: Susceptible Klebsiella pneumoniae ssp pneumoniae Cefazolin (Urine) MEENA 2 ug/ml: Susceptible Klebsiella pneumoniae ssp pneumoniae Cefoxitin MEENA <=4 ug/ml: Susceptible Klebsiella pneumoniae ssp pneumoniae Ceftazidime MEENA <=0.5 ug/ml: Susceptible Klebsiella pneumoniae ssp pneumoniae Ceftriaxone MEENA <=0.25 ug/ml: Susceptible Klebsiella pneumoniae ssp pneumoniae Cefepime MEENA <=0.12 ug/ml: Susceptible Klebsiella pneumoniae ssp pneumoniae Meropenem MEENA <=0.25 ug/ml: Susceptible Klebsiella pneumoniae ssp pneumoniae Amikacin MEENA <=1 ug/ml: Susceptible Klebsiella pneumoniae ssp pneumoniae Gentamicin MEENA <=1 ug/ml: Susceptible Klebsiella pneumoniae ssp pneumoniae Ciprofloxacin MEENA <=0.06 ug/ml: Susceptible Klebsiella pneumoniae ssp pneumoniae Levofloxacin MEENA <=0.12 ug/ml: Susceptible Klebsiella pneumoniae ssp pneumoniae Nitrofurantoin MEENA 128 ug/ml: Resistant Klebsiella pneumoniae ssp pneumoniae Trimethoprim/Sulfamethoxazo le MEENA <=20 ug/ml: Susceptible us Marie RAJAN LAB MICROBIOLOGY - GENERAL ORD ERABLES Final Result [facility] [address] [place] [address], * (ABNORMAL) Comprehensive metabolic panel (03/07/2025 11:39 AM EDT) Sodium 141 133 - 145 mmol/L LAB CHEMISTRY METHOD 03/07/2025 1:50 PM EDT [facility] Potassium 3.7 3.5 - 5.5 mmol/L LAB CHEMISTRY METHOD 03/07/2025 1:50 PM EDT [facility] Chloride 105 96 - 110 mmol/L LAB CHEMISTRY METHOD 03/07/2025 1:50 PM EDT [facility] CO2 28 21 - 32 mmol/L LAB CHEMISTRY METHOD 03/07/2025 1:50 PM EDT [facility] Anion Gap 8 3 - 11 LAB CHEMISTRY METHOD 03/07/2025 1:50 PM EDT [facility] Glucose 117(H) 70 - 100 mg/dL LAB CHEMISTRY METHOD 03/07/2025 1:50 PM [facility] BUN 13 5 - 25 mg/dL LAB CHEMISTRY METHOD 03/07/2025 1:50 PM [facility] Creatinine 0.56 0.50 - 1.10 mg/dL LAB CHEMISTRY METHOD 03/07/2025 1:50 PM [facility] eGFR 97 >=60 mL/min/1. 73m2 LAB CHEMISTRY METHOD 03/07/2025 1:50 PM [facility] Comment:Calculation based on the Chronic Kidney Disease Epidemiology Collaboration (CKD-EPI) equation refit without adjustment for race. BUN/Creatinine Ratio 23.2 LAB CHEMISTRY METHOD 03/07/2025 1:50 PM [facility] Calcium 10.4 8.5 - 10.5 mg/dL LAB CHEMISTRY METHOD 03/07/2025 1:50 PM [facility] AST (SGOT) 35 10 - 42 unit/L LAB CHEMISTRY METHOD 03/07/2025 1:50 PM [facility] ALT (SGPT) 24 10 - 60 unit/L LAB CHEMISTRY METHOD 03/07/2025 1:50 PM [facility] Alkaline Phosphatase 144(H) 42 - 121 unit/L LAB CHEMISTRY METHOD 03/07/2025 1:50 PM [facility] Total Protein 7.3 6.0 - 8.0 g/dL LAB CHEMISTRY METHOD 03/07/2025 1:50 PM [facility] Albumin 3.6 3.2 - 5.0 g/dL LAB CHEMISTRY METHOD 03/07/2025 1:50 PM [facility] Total Bilirubin 0.9 0.0 - 1.4 mg/dL LAB CHEMISTRY METHOD 03/07/2025 1:50 PM [facility] Blood Venous blood specimen / Unknown Venipuncture / Unknown 03/07/2025 11:39 AM EDT 03/07/2025 12:35 PM EDT Naa Julinana Hall DO LAB BLOOD ORDERABLES Final Result [facility] [address] [place] [address], [place] [phone] from Last 3 Months or Most Recently Relevant to Health Maintenance Insurance MEDICARE [place]ICAID - [place] Advance Directives Documents on File Type Date Recorded Patient Machine Tracer Expl anation Health Care Decision (hx) 01/26/2017 AD VALENCIA DIRECTIVE Health Care Decision (hx) 01/26/2017 AD VALENCIA DIRECTIVE Health Care Decision (hx) 01/26/2017 AD VALENCIA DIRECTIVE Health Care Decision (hx) 01/26/2017 AD VALENCIA DIRECTIVE Health Care Decision (hx) 01/26/2017 AD VALENCIA DIRECTIVE Health Care Decision (hx) 01/26/2017 AD VALENCIA DIRECTIVE Health Care Decision (hx) 01/26/2017 AD VALENCIA DIRECTIVE Health Care Decision (hx) 01/26/2017 AD VALENCIA DIRECTIVE Health Care Decision (hx) 01/26/2017 AD VALENCIA DIRECTIVE Health Care Decision (hx) 01/26/2017 AD VALENCIA DIRECTIVE Health Care Decision (hx) 01/26/2017 AD VALENCIA DIRECTIVE Health Care Decision (hx) 01/26/2017 AD VALENCIA DIRECTIVE Care Teams Instrument Sterilizer Relationship Specialty Start Date End Date Kasie Tomlinson [address] [place] [id number] PCP - General 10/15/21
--- OUTSIDE RECORDS SUMMARY | 2025-08-19 11:34 | XMS_ITS | Encounter Summary ---
Author Organization [facility] Address [address] [place] [address] Care Team Providers Care Group Teacher Name Role Phone Kasie Tomlinson Primary Care Provider [phone] Encounter Details Date Type Department Care Team (Late Contact Info) Description 06/26/2025 Lab Requisition [facility] - Main Lab [address] [facility] [place] [address] Marie Porter PA [address] [place] [address] Urinary tract infection, site not specified; Dysuria Social History Tobacco Use Types Packs/Day Years [...] Upcoming Encounters Date Type Department Care Team ([facility] Contact Info) Description 03/16/2026 10:30 AM EDT Office Visit [facility] Hematology Oncology [address] [place] [phone] Naa Hall, DO [address] [place] [address] documented as of this encounter Procedures Procedure Name Priority Date/Time Associated Diagnosis Comments CULTURE URINE Routine 06/26/2025 12:00 AM EDT Urinary tract infection, site not specified Dysuria documented in this encounter Results * (ABNORMAL) Culture urine (06/26/2025 12:00 AM EDT) Culture, Urine 50,000-100,000 CFU/mL Klebsiella pneumoniae ssp pneumoniae(A) MEENA 06/28/2025 8:14 AM EDT [facility] Comment: This is an edited result. [...] MICROBIOLOGY - GENERAL ORD ERABLES Final Result [facility] [address] [place] [address], documented in this encounter Visit Diagnoses Diagnosis Urinary tract infection, site not specified Dysuria documented in this encounter Care Teams Group Teacher Relationship Specialty Start Date End Date Kasie Tomlinson [address] [place] [id number] PCP - General 10/15/21 documented as of this encounter
--- OUTSIDE RECORDS SUMMARY | 2025-08-19 11:34 | XMS_ITS | Clinical Summary ---
Author Organization [facility] Address [address] [place] [address] Care Team Providers Care Highway Engineer Name Role Phone Kasie Tomlinson RETROFIT INSTALLER Primary Care Provider [phone] Allergies Active Allergy Reactions Criticality Noted Date Comments Penicillins Nausea And Vomiting,Rash Low 10/15/2021 Medications Medication Sig Dispensed Refills Start Date End Date Status atenolol (TENORMIN) tablet 25 mg Take 1 tablet (25 mg total) by mouth daily. 0 Active atorvastatin (LIPITOR) tablet 80 mg Take 1 tablet (80 mg total) by mouth. 0 Active busPIRone (BUSPAR) 15 MG tablet Take 1 tablet (15 mg total) by mouth. 0 Active Cholecalciferol 1.25 MG (55518 UT) TABS Take 1 tablet by mouth once a week. 0 Active DULoxetine (CYMBALTA) DR capsule 30 mg Take 1 capsule (30 mg total) by mouth. 0 Active linaclotide (LINZESS) 145 MCG CAPS Take 1 capsule (145 mcg total) by mouth. 0 Active LORazepam (ATIVAN) 0.5 MG tablet Take 1 tablet (0.5 mg total) by mouth. 0 Active QUEtiapine (SEROquel) 25 MG tablet Take 1 tablet (25 mg total) by mouth every night at bedtime. 0 08/16/2021 Active Januvia 100 MG tablet Take 1 tablet (100 mg total) by mouth daily. 0 08/31/2021 Active zolpidem (Ambien) 10 MG tablet Take 1 tablet (10 mg total) by mouth every night at bedtime as needed for sleep. 0 Active chlorthalidone (HYGROTON) 25 MG tablet Take 1 tablet (25 mg total) by mouth daily. 0 Active Empagliflozin (JARDIANCE PO) Take by mouth. 0 Active Active Problems Problem Noted Date Diagnosed Date MGUS (monoclonal gammopathy of unknown significa nce) 09/15/2021 Overview: 09/16- referred to hematology Fibromyalgia 04/23/2021 Primary osteoarthritis involving multiple joints 04/23/2021 Anxiety and depression 03/15/2021 DDD (degenerative disc disease), lumbar 03/15/20 Diabetic neuropathy associat ed with type 2 diabetes mellitus 03/15/2021 Lumbar spondylosis 03/15/2021 Neck pain 03/15/2021 Obesity 03/15/2021 Plantar fascial fibromatosis 03/15/2021 Family History Medical History Relation Name Comments Stomach cancer Brother Cervical cancer Mother Relation Name Status Comments Brother Alive Father Mother (Age 70) Social History Tobacco Use Types Packs/Day Years Used Date Smoking Tobacco: Never Smokeless Tobacco: Never Alcohol Use Standard Drinks/Week Comments Yes 0 (1 standard drink = 0.6 oz pur e alcohol) Occasional wine Sex and Gender Information Value Date Recorded Sex Assigned at Not on file Gender Identity Not on file Sexual Orientation Not on file Job Start Date Occupation Industry Not on file Not on file Not on file Last Filed Vital Signs Vital Sign Reading Time Taken Comments Blood Pressure 122/47 08/29/2024 9:49 AM EDT Pulse 54 08/29/2024 9:49 AM EDT Temperature 36.6 C (97.9 F) 08/29/2024 9:49 AM EDT Respiratory Rate - - Oxygen Saturation 100% 08/29/2024 9:49 AM EDT Inhaled Oxygen Concentration - - Weight 87.5 kg (192 lb 12.8 oz) 08/29/2024 9:49 AM EDT Height 160 cm (5' 3 ) 08/29/2024 9:49 AM EDT Body Mass Index 34.15 08/29/2024 9:49 AM EDT Plan of Treatment Health Maintenance Due Date Last Done Comments Hepatitis C Screening 1953 Depression Screening 1965 BMI Counseling 1971 Preventative Health Evaluation 1971 Colon Cancer Screening (Colonoscopy) 1998 Breast Cancer Screening (Mammogram) 2003 Fall Risk Assessment 2018 Osteoporosis Screening (DEXA Scan) 2018 COVID-19 Vaccine (2 - Pfizer risk series) 03/19/2022 02/26/2022 Shingrix-Zoster Vaccine (2 of 2) 02/08/2023 12/14/2022 Influenza Vaccine (#1) 2025 , 10/18/2022, 11/24/2021, Additional history exists RSV Adult > 60+ Yrs or (1 - 1-dose 75+ series) 02/14/2028 DTap / Tdap / Td (3 - Td or Tdap) 06/28/2034 06/28/2024, 01/06/2014, 10/29/2009 Pneumococcal Vaccine Completed 02/12/2024, 07/02/2019, 02/26/2015, Additional history exists Hepatitis B Vaccines Aged Out No long er eligible based on patient's age to complete this topic RSV Ped < 20 months Aged Out No longe r eligible based on patient's age to complete this topic Care Teams Highway Engineer Relationship Specialty Start Date End Date Kasie Tomlinson NP [address] [place] [address] PCP - General Family Medicine 10/15/21
== END 2025-08-19 09:43 | disposition home or self-care (01) ==
LOC: HO.MAMMO 09:42
PROVIDERS: PCP Nurse Practitioner Family; Visit Provider Nurse Practitioner Family
DX: Z12.31 Encounter for screening mammogram for malignant neoplasm of breast (principal)
CPT/HCPCS: 77063; 77067

== ENCOUNTER → 2025-08-19 10:15 | Outpatient (BNV) | payer MEDICARE, MEDICAID, SELFPAY | PROVIDERS: PCP Nurse Practitioner Family; Visit Provider Radiology Body Imaging | DX: Z12.31 Encounter for screening mammogram for malignant neoplasm of breast (principal) | CPT/HCPCS: 77063; 77067 ==